=== PATIENT | female | born 1940 | race African-American/Black ===

== ENCOUNTER 2016-10-31 12:23 | Inpatient (IN) ==
[2016-10-31] MEDS ORDERED: ALBUTEROL/IPRATROPIUM 3 ML NEB RESP TX PRN (12:26)
[2016-10-31] MEDS ORDERED: AMINOPHYLLINE 250 MG in SODIUM CHLORIDE 0.9% 100 ML IV ONE (12:37)
[2016-10-31] MEDS ORDERED: traMADol 50 MG TABLET PO PRN (12:37)
[2016-10-31] MEDS ORDERED: ACETAMINOPHEN 325 MG TABLET PO PRN (12:46)
--- NOTE | 2016-10-31 12:50 | Pulmonology History & Physical ---
History of Present Illness Chief complaint: shortness of breath wheezing bronchitis with bronchospasm sarcoidosis History of present illness: Julia Triana, KHADRA-Mera acting as scribe for Dr. Phill Wallis. Ms. Grady is a 76 year old female who was seen in the office by myself and Dr. Phill Wallis for severe wheezing, shortness of breath, hypoxemia, productive cough, and status post fall with thoracic back pain. States that she has tenderness in one spot along the thoracic spine since her fall about 1 month ago that has persistent with tenderness. About 1 week ago her chronic shortness of breath worsened and has progressed now to severe shortness of breath and severe wheezing with cough productive of thick dark green sputum. She has a history of pulmonary sarcoidosis with interstitial scarring and severely enlarged lymph nodes. Also has history of reflux with dysphagia and upon further questioning in office the patient stated she "forgot " she had reflux. Has not been taking her reflux medication. Has some solid dysphagia, but mostly complains that beef is "hard to chew". Also she is followed by Dr. Diaz for chronic renal failure. O2 sat in the office was initially 79% on room air, she was given inhalation treatment with duoneb and sat came up to 84% on room air. Due to her past medical history, severity of her symptoms, severe hypoxemia, and recent fall with persistent pain decision was made to admit to inpatient for further evaluation and treatment. All other ROS noncontributory. ALLERGIES: AMOXICILLIN, ASPIRIN, PENICILLINS Home Medications: Accolate 20mg BID, Allopurinol 300mg daily, Dexamethasone 2mg every other day, Self Prescribed Garlic, Klor-Con 20mEq BID, Lisinopril 20mg daily, Metolazone 5mg 2 tabs in AM 1 in PM, Torsemide 100mg daily, self prescribed Vitamin E. Past Medical History: Dejenerative joint disease, hypertension, GERD, sarcoidosis, hyperlipidemia, chronic low back pain, spinal stenosis, herniated nucleus pulposus sustained April 2007 treated in [place] by Dr. Wolff and Dr. Starkey, gout, truncal obesity, history of microaspiration, lower extremity edema, history of asbestos exposure and possible pulmonary asbestosis as per Dr. Whitaker, see documentation 03/06/01. history of right lower extremity weakness secondary to spinal stenosis, chronic renal failure followed by Dr. Diaz. Past Surgical History: Back surgery April 2007, gallbladder surgery may 1999, tubal ligation 1995. Family History: Sister had diabetes. Social History: No alcohol or tobacco abuse. Went through 11th grade in school. and her has cancer. Chest X-Ray labs and EKG pending at the time of admission. Home Medications Medication Instructions Recorded Confirmed Type Allopurinol 100 mg PO DAILY 10/31/16 10/31/16 History Lisinopril 20 mg PO DAILY 10/31/16 10/31/16 History Magnesium Chloride [Slow Mag] 64 mg PO BID 10/31/16 10/31/16 History Potassium Chloride Cap/Tab [K Dur] 20 meq PO BID 10/31/16 10/31/16 History Zafirlukast 20 mg PO Q12HR 10/31/16 10/31/16 History traMADol/ACETAMINOPH 37.5-325 1 tablet PO BID PRN 10/31/16 10/31/16 History [Ultracet] Allergies Allergy/AdvReac Type Severity Reaction Status Date / Time Amoxicillin AdvReac Severe SHORTNESS Verified 10/31/16 14:01 OF BREATH aspirin AdvReac Severe SHORTNESS Verified 10/31/16 13:51 OF BREATH Results - Labs CBC & BMP: 11/01/16 04:11 11/01/16 04:11 Exam (Pulmonay) H&P - Constitutional Exam: Psych: Oriented x3. Acute and chronically ill appearing. HEENT: Pupils, irises, sclera, conjunctiva, and eyelids are normal. The face is symmetrical with no rashes and no masses. Salivary glands are normal. Nares are normal. Nasal turbinates are pale and moderately edematous with purulent drainage. Pharynx, soft and hard palate, tongue and buccal mucosa are normal. TMs normal. Neck: Symmetrical, no masses. Thyroid not examined. Lymphatic: No submandibular cervical supraclavicular adenopathy. Chest: Symmetrical. There is diffuse inspiratory and expiratory high pitched large airway and tracheal wheezing. There are faint/vague high pitched inspiratory and expiratory peripheral wheezes but there is very little air movement through the peripheral airways so it is difficult to hear any wheezing. Heart: Regular with a slightly lateral PMI, grade I/ systolic murmur at the left sternal border without radiation. No rub or gallop. Breasts: Deferred. Abdomen: Abdominal obesity is present with no appreciable organomegaly, masses, tenderness or bruits. The aorta cannot be palpated. Bowel sounds are normal. /Rectal: Deferred. Musculoskeletal: Mild loss of normal curvature of the cervical, thoracic and lumbar spine. Mild degenerative changes of the knees. Extremities: Trace lower extremity edema. No evidence of deep venous thrombophlebitis. Arterial exam: Carotid upstroke is brisk no bruits. Upper and lower extremity pulses are palpable. Venous exam: Venous exam of the neck, upper and lower extremities is normal. Neurological: Cranial nerves are intact. Long tract motor function is intact. She uses a walker normally but since her fall is using a wheelchair. Reflexes were not tested. Impression: #1 Acute bronchitis with bronchospasm #2 Severe shortness of breath and wheezing #3 Productive cough, r/o pneumonia #4 Pulmonary sarcoidosis #5 Status post fall with persistent thoracic spine pain #6 GERD #7 See past history Plan #1 Admit to inpatient for further evaluation and treatment #2 IV abx, SoluMedrol and aminophylline #3 Labs and CXR as ordered #4 T-Spine series r/o compression fx #5 Inhalation therapy with duonebs #6 Treat GERD with PPI and carafate as directed #7 See orders.
[2016-10-31] MEDS: ALBUTEROL/IPRATROPIUM 3 ML NEB RESP TX SCH ×2 (13:58→19:23)
--- NOTE | 2016-10-31 14:22 | EKG Report ---
Please refer to the EKG image. Final interpretation is pending.
[2016-10-31] MEDS: methylPREDNISolone SOD SUC 40 MG/1 ML VIAL IV SCH ×2 (15:20→20:16)
[2016-10-31] MEDS: CLINDAMYCIN INJ 300 MG in PREMIX 1 EACH IV SCH ×2 (15:24→20:17)
[2016-10-31] MEDS: PANTOPRAZOLE 40 MG TABLET PO SCH (15:25)
[2016-10-31 15:28] LABS: Basophils % 0.2 % (0.0-0.8); Immature Granulocytes % 0.4 %; Immature Granulocytes Absolute 0.02 #; Lymphocytes % 20.2 % (21.3-54.2); Mean Corpuscular HGB Conc 31.9 GM/DL (32-36); Mean Corpuscular Hemoglobin 31 PG (27-34); Mean Corpuscular Volume 98.3 FL (87-102); Mean Platelet Volume 11.1 FL (9.6-12.0); Monocytes # 0.6 10*3/uL (0.11-0.8); Monocytes % 11.7 % (1.7-12.7); NRBC # 0.02 10*3/uL; Neutrophils # 3.3 10*3/uL (1.4-7.4); Neutrophils % 67.5 % (38.7-73.9); Platelet Count 115 T/CUMM (130-400); Red Blood Count 4.78 MC/CUMM (3.8-5.5); Red Cell Distribution Width 14.7 % (9.3-17.3)
[2016-10-31 15:57] LABS: Albumin 3.3 G/DL (3.4-5.0); Bilirubin,Total 0.7 MG/DL (0.2-1.0); Calcium 8.8 MG/DL (8.5-10.1); Magnesium 1.8 MG/DL (1.8-2.4); Osmolality,Calculated 289.3 MOS/KG (273-304); Thyroid Stimulating Hormone 1.3 uIU/ml (0.358-3.74); Total Protein 6.7 G/DL (6.4-8.3)
[2016-10-31] MEDS: LEVOFLOXACIN INJ 250 MG in PREMIX 1 EACH IV SCH (16:15)
[2016-10-31] MEDS: SUCRALFATE 1 GM TABLET PO SCH ×2 (17:45→20:14)
[2016-10-31] MEDS: MONTELUKAST 10 MG TABLET PO SCH (20:14)
[2016-10-31] MEDS: AMINOPHYLLINE 500 MG in SODIUM CHLORIDE 0.9% 480 ML IV SCH (20:18)
--- NOTE | 2016-10-31 21:29 | XRay Report ---
Exam: XR chest 1V Indication: Shortness of breath Comparison study: Prior chest radiographs 03/22/2014 Findings: Cardiac silhouette is enlarged, similar to prior. There is prominent central perihilar interstitial scarring changes with soft tissue prominence likely representing underlying hilar adenopathy which appears similar to minimally progressed from the 2014 study. There has also been development of minimal basilar interstitial opacities which may represent scarring or interstitial infectious/inflammatory infiltrates. There is no pneumothorax. Impression: Cardiomegaly with perihilar and basilar interstitial opacities suggestive of underlying scarring. Additional soft tissue opacities within the hilar regions which may be partially calcified appear similar to slightly progressed from prior may be related to prior granulomatous disease or other chronic infectious/inflammatory process. PROCEDURE INTERPRETED AT [facility] DEPARTMENT OF RADIOLOGY Final Report Signed by: Dale Carrera
--- NOTE | 2016-10-31 21:36 | XRay Report ---
XR thoracic spine 2V ap/lat Clinical Information: tspinepain point tenderness r/o compression fx Comparison: None available Findings: Vertebral body heights and alignment are grossly within normal limits. Visualization of the lateral view is limited due to overlying soft tissues. There is suggestion of mild mid thoracic (possibly T6-T7?) Vertebral body height loss of 20%, although this is poorly visualized. Intervertebral disc spaces are generally maintained at all levels. No suspicious osseous or soft tissue lesions are identified. Impression: Limited visualization due to patient body habitus. No definite acute displaced fractures although there is suggestion of minimal, age indeterminant, height loss at the mid thoracic levels. See above comments. PROCEDURE INTERPRETED AT [facility] DEPARTMENT OF RADIOLOGY Final Report Signed by: Dale Carrera
[2016-11-01] MEDS: methylPREDNISolone SOD SUC 40 MG/1 ML VIAL IV SCH ×4 (03:25→20:50)
[2016-11-01] MEDS: CLINDAMYCIN INJ 300 MG in PREMIX 1 EACH IV SCH ×4 (03:25→20:50)
[2016-11-01 05:10] LABS: Amorphous Crystals,Urine Occasional /HPF (Few); Apearance,Urine CLOUDY (Clear); Bacteria,Urine Many /HPF (Few); Bilirubin,Urine Negative (Negative); Blood, Urine Negative (Negative); Glucose,Urine (UA) Negative (Negative); Ketones,Urine Negative (Negative); Mucus,Urine Occasional /LPF (Occasional); Nitrite,Urine Negative (Negative); Protein,Urine >=500 MG/DL; RBC,Urine 5 /HPF (0-4); Squamous Epithelial Cell,Urine Occasional /HPF (0-10); Urine Color Amber (Yellow); Urine Specific Gravity 1.018 (1.001-1.035); Urine Urobilinogen < 2.0 EU/DL (0.2-1.0); WBC,Urine 41 /HPF (0-6)
[2016-11-01 05:10] LABS: Hematocrit 47.4 VOL% (35.7-47.0); Hemoglobin 15.3 GM/DL (12.0-16.0); Immature Granulocytes Absolute 0.03 #; Lymphocytes # 0.8 10*3/uL (1.4-4.0); Lymphocytes % 28.2 % (21.3-54.2); Mean Corpuscular HGB Conc 32.3 GM/DL (32-36); Mean Corpuscular Hemoglobin 32 PG (27-34); Mean Corpuscular Volume 97.7 FL (87-102); Mean Platelet Volume 11.5 FL (9.6-12.0); Monocytes # 0.1 10*3/uL (0.11-0.8); Monocytes % 3.8 % (1.7-12.7); Platelet Count 127 T/CUMM (130-400); Red Blood Count 4.85 MC/CUMM (3.8-5.5); Red Cell Distribution Width 14.6 % (9.3-17.3); White Blood Count 2.9 T/CUMM (4-12)
[2016-11-01 05:36] LABS: Hypochromasia 1+
[2016-11-01 05:37] LABS: Platelet Estimate Normal
[2016-11-01 05:45] LABS: Calcium 8.7 MG/DL (8.5-10.1); Osmolality,Calculated 289.5 MOS/KG (273-304); Potassium 4.4 MMOL/L (3.5-5.1)
[2016-11-01] MEDS: ALBUTEROL/IPRATROPIUM 3 ML NEB RESP TX SCH ×4 (07:44→20:03)
[2016-11-01] MEDS: PANTOPRAZOLE 40 MG TABLET PO SCH (09:15)
[2016-11-01] MEDS: MONTELUKAST 10 MG TABLET PO SCH ×2 (09:16→20:49)
[2016-11-01] MEDS: amLODIPine 5 MG TABLET PO SCH (09:16)
[2016-11-01] MEDS: SUCRALFATE 1 GM TABLET PO SCH ×4 (09:16→20:49)
--- NOTE | 2016-11-01 10:38 | Pulmonology Progress Note ---
Pulmonary - PN: Subj Interval history: Hosea Ramirez, ANP-BC, GNP-BC, acting as scribe for Dr. Phill Wallis Mrs. Grady is a 76-year-old -[place] female who was admitted from internal medicine clinic on 10/31/2016 with acute shortness of breath, wheezing, acute bronchitis with bronchospasm, and sarcoidosis. Patient also had significant complaints of back pain. She had fallen 1 month ago. The patient was admitted and started on IV antibiotics, IV Solu-Medrol, and IV Aminophyllin. She is somewhat improved since admission, however, the patient continues to have significant wheeze. We will start scheduled subcu epinephrine 0.1 mg every 8 hours. We will obtain a theophylline level and follow this daily. Patient continues to complain of back pain. Thoracic spine x-ray done 2016 showed no definite acute displaced fractures although there is suggestion of minimal, age-indeterminate, height loss at the midthoracic levels. Visualization was somewhat impeded secondary to her body habitus. Will obtain a bone scan and consult pain management for further evaluation and care. Cold agglutinins are negative. Legionella is pending. Sputum for Gram stain, culture, and sensitivity were ordered at admission, however, the patient has not produced sputum for testing thus far. Medications have been reviewed. Labs been reviewed. White count is 2900 with normal differential; H&H 15.3/47.4 ; platelet count 127,000; creatinine 2.20, BUN 44, electrolytes are normal; urinalysis showed small leukocytes but was nitrite negative. There were many bacteria and 41 WBCs per high-power field. Culture is pending. Exam (Progress Note) - Constitutional Vitals: Period Temp Pulse Resp BP Sys/Nicolas Pulse Ox Last 24 Hr 96.8 F-97.7 F 55-93 18-26 91-149/57-90 78-99 Exam: Chest...see above Heart no gallop Abdomen is obese but nontender and nondistended, bowel sounds positive 4 Extremities with nothing to suggest acute deep venous thrombophlebitis, bilateral DIMITRIOS hose are in place Psychiatric oriented 3 Neurologic long tract motor function is intact Plan: Bone scan. Subcu epinephrine 0.1 mg every 8 hours. Consult pain management for possible compression fracture. Theophylline level today and daily. See orders. Results - Labs CBC & BMP: 11/01/16 04:11 11/01/16 04:11
[2016-11-01] MEDS: EPINEPHrine 1 MG/ML VIAL SUBCUT SCH ×2 (12:10→19:22)
--- NOTE | 2016-11-01 12:31 | Pain Management Consult Note ---
Assessment and Plan (1) Thoracic compression fracture Status: Acute Assessment and plan: will await the bone scan results and follow Current Visit: Yes History of Present Illness Chief complaint: mid back pain History of present illness: Ms. Grady is a 76 year old female sever emid back pain since a fall few weeks ago . chest xrays show possible compression fractures and bone scan will be done to check if they are acute Home Medications Medication Instructions Recorded Confirmed Type Allopurinol 100 mg PO DAILY 10/31/16 10/31/16 History Lisinopril 20 mg PO DAILY 10/31/16 10/31/16 History Magnesium Chloride [Slow Mag] 64 mg PO BID 10/31/16 10/31/16 History Potassium Chloride Cap/Tab [K Dur] 20 meq PO BID 10/31/16 10/31/16 History Zafirlukast 20 mg PO Q12HR 10/31/16 10/31/16 History traMADol/ACETAMINOPH 37.5-325 1 tablet PO BID PRN 10/31/16 10/31/16 History [Ultracet] Allergies Allergy/AdvReac Type Severity Reaction Status Date / Time Amoxicillin AdvReac Severe SHORTNESS Verified 10/31/16 14:01 OF BREATH aspirin AdvReac Severe SHORTNESS Verified 10/31/16 13:51 OF BREATH Medical,Surgical,& Family Hx - Medical History HEENT: History of: Eye Problem Respiratory: History of: Asthma, Respiratory Problems - Surgical History Cardiac Surgeries: Patient Denies: Cardiac Catheterization Thoracic Surgeries: Patient denies;: Organ Transplant Neurologic Surgeries: Patient denies: Neurologic Surgery Abdominal Surgeries: Patient denies: Abdominal Surgery Reproductive Surgeries: Patient denies;: Genitourinary Surgery, Gynecologic Surgery - Social History Smoking Status: Never smoker Frequency of Alcohol Use: None Type of Drug Use: None Quality Measures - Stroke Symptom Onset Unknown: No 12 point system: reviewed and no additional remarkable complaints except as stated - Constitutional Constitutional: Present: as per HPI - EENT Nose, mouth and throat: Present: as per HPI - Cardiovascular Cardiovascular: Absent: chest pain at rest, chest pain with activity - Respiratory Respiratory: Present: as per HPI - Gastrointestinal Gastrointestinal: Present: as per HPI - Genitourinary Genitourinary: Present: as per HPI - Musculoskeletal Musculoskeletal: Present: abnormal gait, back pain - Neurological Neurological: Present: abnormal gait - Endocrine Endocrine: Present: as per HPI Hematologic/Lymphatic: Present: as per HPI Exam - Constitutional Vitals: Period Temp Pulse Resp BP Sys/Nicolas Pulse Ox Last 24 Hr 96.8 F-97.7 F 55-93 18-26 91-149/57-90 78-99 General appearance: mild distress, no no acute distress - Head Head exam: Present: normal inspection - Eye Eye exam: Present: EOMI Pupils: Present: JOVITA - ENT ENT exam: Present: normal exam Ear exam: Present: intact Mouth exam: Present: normal external inspection - Neck Neck exam: Present: normal inspection - Respiratory Respiratory exam: Present: decreased breath sounds - Cardiovascular Cardiovascular exam: Present: RRR - GI/Abdominal GI/Abdominal exam: Present: normal bowel sounds - Extremities Exam Extremities exam: Present: normal inspection - Back Exam Back exam: Present: vertebral tenderness - Neurological Exam Neurological exam: Present: alert, oriented X3 - Skin Skin exam: Present: normal color Results - Labs CBC & BMP: 11/01/16 04:11 11/01/16 04:11 Lab Results: I have reviewed the past 24 hour labs
[2016-11-01] MEDS: LEVOFLOXACIN INJ 250 MG in PREMIX 1 EACH IV SCH (12:42)
--- NOTE | 2016-11-01 15:24 | Nuclear Medicine Report ---
Exam: NM bone scan whole body Date: 11/01/2016 10:06 AM Indication: Back pain Comparison: Chest radiograph and thoracic spine radiograph 10/31/2016. Previous MRI of lumbar spine 03/21/2014 revealed degenerative marrow signal changes at L3-L4 and L5 Technical: The patient was given 30 mCi of technetium 99m MDP. Anterior and posterior whole-body images were obtained. Findings: A cervicothoracic spine unremarkable. There is slight increased signal in the lumbar spine at approximately L1 or L2 not otherwise clarified. The ribs are unremarkable. There is mild degenerative changes at the AC joints and knees and mid foot region. Calvarium and long bones and ribs and pelvic girdle are intact. The kidneys and bladder are unremarkable. Impression: 1. Slight increased activity over the lumbar spine at approximately the L1 or L2 level. If further evaluation is warranted MRI may be beneficial. 2. Degenerative arthritic change of the shoulders and knees and feet 3. No obvious abnormality in the thoracic spine noted. PROCEDURE INTERPRETED AT [facility] DEPARTMENT OF RADIOLOGY Final Report Signed by: Dr. Phill Kim
[2016-11-02] MEDS: methylPREDNISolone SOD SUC 40 MG/1 ML VIAL IV SCH ×3 (04:49→20:50)
[2016-11-02] MEDS: CLINDAMYCIN INJ 300 MG in PREMIX 1 EACH IV SCH ×3 (04:49→20:48)
[2016-11-02] MEDS: EPINEPHrine 1 MG/ML VIAL SUBCUT SCH ×3 (04:50→20:51)
[2016-11-02 06:21] LABS: Hematocrit 46.2 VOL% (35.7-47.0); Hemoglobin 14.3 GM/DL (12.0-16.0); Immature Granulocytes % 0.7 %; Immature Granulocytes Absolute 0.03 #; Lymphocytes # 0.6 10*3/uL (1.4-4.0); Lymphocytes % 14.5 % (21.3-54.2); Mean Corpuscular Hemoglobin 31 PG (27-34); Monocytes # 0.3 10*3/uL (0.11-0.8); NRBC # 0.03 10*3/uL; Neutrophils # 3.2 10*3/uL (1.4-7.4); Neutrophils % 76.8 % (38.7-73.9); Platelet Count 136 T/CUMM (130-400); Red Blood Count 4.62 MC/CUMM (3.8-5.5); Red Cell Distribution Width 14.6 % (9.3-17.3); White Blood Count 4.1 T/CUMM (4-12)
--- NOTE | 2016-11-02 06:36 | Pain Management Progress Note ---
Assessment and Plan (1) Thoracic compression fracture Status: Acute Assessment and plan: will await the bone scan results and follow 11/02 I recommend to continue current plan of pain management which seems to be effective. I will discuss with Dr. Wallis about possibly obtaining MRI scans of the lumbar spine and thoracic spine if needed on Friday to see if these fractures are definitely acute Current Visit: Yes Pain - Subjective Interval history: The patient has been stable overnight has some trouble catching her breath however is not complaining of severe lower back pain. I had a chance of reviewing the bone scan results from yesterday which shows some increased activity at the L1 and L2 areas. That is suggestive of possible acute compression fractures however the radiologist recommended MRI scan if possible to be 100% certain of this. As I discussed the issue of the fractures the patient says that she is not ready for any surgery. I explained to her that if the MRI scans do show a need for kyphoplasty I will discuss it in detail with her and her family Exam - Constitutional Vitals: Period Temp Pulse Resp BP Sys/Nicolas Pulse Ox Last 24 Hr 97.0 F-97.6 F 71-88 18-21 92-125/51-80 91-99 General appearance: mild distress - Head Head exam: Present: normal inspection - Eye Eye exam: Present: EOMI Pupils: Present: JOVITA - ENT ENT exam: Present: normal exam Ear exam: Present: intact Mouth exam: Present: normal external inspection - Neck Neck exam: Present: normal inspection - Respiratory Respiratory exam: Present: decreased breath sounds - Cardiovascular Cardiovascular exam: Present: RRR - GI/Abdominal GI/Abdominal exam: Present: soft - Extremities Exam Extremities exam: Present: normal inspection, edema - Back Exam Back exam: Present: vertebral tenderness - Neurological Exam Neurological exam: Present: alert, oriented X3 - Skin Skin exam: Present: normal color Results - Labs CBC & BMP: 11/01/16 04:11 11/01/16 04:11 Lab Results: I have reviewed the past 24 hour labs Quality Measures - Stroke Symptom Onset Unknown: No
[2016-11-02 06:50] LABS: Calcium 8.3 MG/DL (8.5-10.1); Osmolality,Calculated 294.3 MOS/KG (273-304)
[2016-11-02 07:14] LABS: Band Neutrophils 1 % (0-10); Hypochromasia 1+; Lymphocytes 8 % (20-55); Macrocytosis 1+; Nucleated Red Blood Cells 1 (0-5); Platelet Estimate Adequate; Segmented Neutrophils 88 % (50-85); Total Cells Counted 100
[2016-11-02] MEDS: ALBUTEROL/IPRATROPIUM 3 ML NEB RESP TX SCH ×4 (07:45→19:25)
[2016-11-02] MEDS: amLODIPine 5 MG TABLET PO SCH (08:58)
[2016-11-02] MEDS: SUCRALFATE 1 GM TABLET PO SCH ×4 (08:59→20:51)
[2016-11-02] MEDS: PANTOPRAZOLE 40 MG TABLET PO SCH (08:59)
[2016-11-02] MEDS: MONTELUKAST 10 MG TABLET PO SCH ×2 (08:59→20:51)
[2016-11-02] MEDS: AMINOPHYLLINE 500 MG in SODIUM CHLORIDE 0.9% 480 ML IV SCH ×2 (09:03→16:46)
--- NOTE | 2016-11-02 10:56 | Pulmonology Progress Note ---
Pulmonary - PN: Subj Interval history: Mrs. Grady is a 76-year-old -[place] female who was admitted from internal medicine clinic on 10/31/2016 with acute shortness of breath, wheezing, acute bronchitis with bronchospasm, and sarcoidosis. Patient also had significant complaints of back pain. She had fallen 1 month ago. The patient was admitted and started on IV antibiotics, IV Solu-Medrol, and IV Aminophyllin. She is somewhat improved since admission, however, the patient continues to have significant wheeze. This is improving on a daily basis. On I started subcu epinephrine 0.1 mg every 8 hours. We will obtain a theophylline level and follow this daily. 11/02/2016 level is 10.3 Patient continues to complain of back pain. Thoracic spine x-ray done 2016 showed no definite acute displaced fractures although there is suggestion of minimal, age-indeterminate, height loss at the midthoracic levels. Visualization was somewhat impeded secondary to her body habitus. a bone scan was obtained. I do not think this showed anything definite. See report. On a consult to Dr. Carrizales for see the patient and pain medicine consultation. I have reviewed his note I appreciate his help. This lady is usually not a complainer. I am in favor of your suggestions concerning the MRI scan. She continues to improve from a pulmonary standpoint she will be ready for this by Friday. Cold agglutinins are negative. Legionella is pending. Sputum for Gram stain, culture, and sensitivity were ordered at admission, however, the patient has not produced sputum for testing thus far. Medications have been reviewed. Labs been reviewed. White count is 2900 with normal differential; H&H 15.3/47.4 ; platelet count 127,000; creatinine was 2.20, creatinine and now has dropped to 1.70. BUN 46, electrolytes are normal; urinalysis showed small leukocytes but was nitrite negative. There were many bacteria and 41 WBCs per high-power field. Culture is growing greater than 100,000 colonies of a gram-negative baltazar. ID and sensitivities are not yet available. Suspect the patient is covered on her present antibiotics. Physical exam. Vital signs. See below General. No significant distress. Comfortable lying nearly flat in bed. Still has back pain Psychiatric. Oriented 3 Neurologic. Cranial nerves are intact with some decreased hearing acuity bilaterally long track motor functions intact. Pupils irises sclera conjunctiva eyelids normal face is symmetrical. Lips and tongue normal. Neck. Symmetrical no meningismus Lymphatics. No submandibular cervical supraclavicular or epitrochlear adenopathy. Chest. Tracheal and large airway wheeze is a good bit improved. There is still associated congestion. There are a few high-pitched end expiratory wheezes heard at both bases and over both upper and anterior lung hernández. Heart. No gallop Abdomen. Nontender. Positive bowel sounds Musculoskeletal. See above Extremities. Nothing to suggest deep venous thrombophlebitis Skin of face and hand shows no infectious or cancerous lesions. No other areas of skin were examined. The remainder the physical exam is negative. Plan. 1. Continue present meds. Subcu epinephrine is helped a good bit. 2. Appreciate Dr. Carrizales consult. I am agreeable to MRI and think the patient will be ready by Friday Exam (Progress Note) - Constitutional Vitals: Period Temp Pulse Resp BP Sys/Nicolas Pulse Ox Last 24 Hr 96.8 F-97.6 F 71-88 18-21 92-125/51-80 92-99 Results - Labs CBC & BMP: 11/02/16 05:51 11/02/16 05:51
[2016-11-02] MEDS: LEVOFLOXACIN INJ 250 MG in PREMIX 1 EACH IV SCH (14:20)
[2016-11-02] MEDS: BENZONATATE 100 MG CAPSULE PO PRN (20:51)
[2016-11-03] MEDS: methylPREDNISolone SOD SUC 40 MG/1 ML VIAL IV SCH ×2 (04:47→20:36)
[2016-11-03] MEDS: EPINEPHrine 1 MG/ML VIAL SUBCUT SCH ×3 (04:48→20:36)
[2016-11-03] MEDS: CLINDAMYCIN INJ 300 MG in PREMIX 1 EACH IV SCH ×3 (04:54→21:02)
[2016-11-03 05:15] LABS: Hemoglobin 13.9 GM/DL (12.0-16.0); Immature Granulocytes % 0.8 %; Immature Granulocytes Absolute 0.05 #; Lymphocytes # 0.4 10*3/uL (1.4-4.0); Lymphocytes % 6.4 % (21.3-54.2); Mean Corpuscular HGB Conc 32.3 GM/DL (32-36); Mean Corpuscular Hemoglobin 31 PG (27-34); Mean Corpuscular Volume 96.8 FL (87-102); Mean Platelet Volume 10.5 FL (9.6-12.0); Monocytes # 0.4 10*3/uL (0.11-0.8); Monocytes % 7.2 % (1.7-12.7); NRBC # 0.03 10*3/uL; Neutrophils # 5.1 10*3/uL (1.4-7.4); Neutrophils % 85.6 % (38.7-73.9); Platelet Count 160 T/CUMM (130-400); Red Blood Count 4.44 MC/CUMM (3.8-5.5); Red Cell Distribution Width 14.4 % (9.3-17.3)
[2016-11-03 05:47] LABS: Calcium 8.3 MG/DL (8.5-10.1); Osmolality,Calculated 292.3 MOS/KG (273-304); Potassium 3.8 MMOL/L (3.5-5.1)
[2016-11-03 06:16] LABS: Hypochromasia Slight
[2016-11-03 06:17] LABS: Platelet Estimate Adequate
[2016-11-03] MEDS: ALBUTEROL/IPRATROPIUM 3 ML NEB RESP TX SCH ×4 (07:48→20:33)
[2016-11-03] MEDS: amLODIPine 5 MG TABLET PO SCH (08:49)
[2016-11-03] MEDS: PANTOPRAZOLE 40 MG TABLET PO SCH (08:49)
[2016-11-03] MEDS: MONTELUKAST 10 MG TABLET PO SCH ×2 (08:49→20:36)
[2016-11-03] MEDS: SUCRALFATE 1 GM TABLET PO SCH ×4 (08:49→20:36)
[2016-11-03] MEDS: BENZONATATE 100 MG CAPSULE PO PRN (08:49)
[2016-11-03] MEDS: LEVOFLOXACIN INJ 250 MG in PREMIX 1 EACH IV SCH (13:19)
--- NOTE | 2016-11-03 14:00 | Pulmonology Progress Note ---
Pulmonary - PN: Subj Interval history: Mrs. Grady is a 76-year-old -[place] female who was admitted from internal medicine clinic on 10/31/2016 with acute shortness of breath, wheezing, acute bronchitis with bronchospasm, and sarcoidosis. Patient also had significant complaints of back pain. She had fallen 1 month ago. The patient was admitted and started on IV antibiotics, IV Solu-Medrol, and IV Aminophyllin. She is somewhat improved since admission, however, the patient continues to have significant wheeze. This is improving on a daily basis. On I started subcu epinephrine 0.1 mg every 8 hours. We will obtain a theophylline level and follow this daily. 11/02/2016 level is 10.3 Patient continues to complain of back pain. Thoracic spine x-ray done 2016 showed no definite acute displaced fractures although there is suggestion of minimal, age-indeterminate, height loss at the midthoracic levels. Visualization was somewhat impeded secondary to her body habitus. a bone scan was obtained. I do not think this showed anything definite. See report. On a consult to Dr. Carrizales for see the patient and pain medicine consultation. I have reviewed his note I appreciate his help. This lady is usually not a complainer. I am in favor of your suggestions concerning the MRI scan. She continues to improve from a pulmonary standpoint she will be ready for this by Friday. Cold agglutinins are negative. Legionella is pending. Sputum for Gram stain, culture, and sensitivity were ordered at admission, however, the patient has not produced sputum for testing thus far. Medications have been reviewed. Labs been reviewed. White count is 2900 with normal differential; H&H 15.3/47.4 ; platelet count 127,000; creatinine was 2.20, creatinine and now has dropped to 1.70. BUN 46, electrolytes are normal; urinalysis showed small leukocytes but was nitrite negative. There were many bacteria and 41 WBCs per high-power field. Culture is growing greater than 100,000 colonies of a gram-negative baltazar. ID and sensitivities are not yet available. Suspect the patient is covered on her present antibiotics. 11/03/2016. Today the patient seems a little anxious and she says she has not been sleeping well at night. I have decreased her Solu-Medrol to 20 IV push every 12 hours. At 8:00 will give her 7.5 for transvenous see how this works. Her urine is growing E. coli. Based on the cultures and sensitivities and JUAN CARLOS is I have stopped her Levaquin and I started meropenem 500 every 8 hours. This is to begin with a test dose. Electrolytes normal. Creatinine is fallen from 2.402 1.30. Acute kidney injury. White blood cell count is 6000 with 86 segs and 6 lymphs. H&H 13.9/43.0. Platelets are 160,000. Theophylline level is therapeutic at 11.9. Physical exam. Vital signs. See below General. No significant distress. Comfortable lying nearly flat in bed. Still has back pain Psychiatric. Oriented 3 Neurologic. Cranial nerves are intact with some decreased hearing acuity bilaterally long track motor functions intact. Pupils irises sclera conjunctiva eyelids normal face is symmetrical. Lips and tongue normal. Neck. Symmetrical no meningismus Lymphatics. No submandibular cervical supraclavicular or epitrochlear adenopathy. Chest. Tracheal and large airway wheeze is a good bit improved. There is still associated congestion. There are a few high-pitched end expiratory wheezes heard at both bases and over both upper and anterior lung hernández. Heart. No gallop Abdomen. Nontender. Positive bowel sounds Musculoskeletal. See above Extremities. Nothing to suggest deep venous thrombophlebitis Skin of face and hand shows no infectious or cancerous lesions. No other areas of skin were examined. The remainder the physical exam is negative. Plan. 1. Continue present meds. Subcu epinephrine is helped a good bit. 2. Appreciate Dr. Carrizales consult. I am agreeable to MRI and think the patient will be ready by Friday 3. 11/03/2016. See my above note for this date. Exam (Progress Note) - Constitutional Vitals: Period Temp Pulse Resp BP Sys/Nicolas Pulse Ox Last 24 Hr 96.6 F-98.3 F 20-103 18-20 91-130/35-77 92-98 Results - Labs CBC & BMP: 11/03/16 04:26 11/03/16 04:26
[2016-11-03] MEDS: MEROPENEM 500 MG in SODIUM CHLORIDE 0.9% 100 ML IV SCH ×2 (15:20→23:00)
[2016-11-03] MEDS ORDERED: CLORAZEPATE 7.5 MG TABLET PO ONE (20:00)
[2016-11-04] MEDS: AMINOPHYLLINE 500 MG in SODIUM CHLORIDE 0.9% 480 ML IV SCH ×2 (01:16→18:04)
[2016-11-04] MEDS: EPINEPHrine 1 MG/ML VIAL SUBCUT SCH ×3 (05:00→21:36)
[2016-11-04] MEDS: CLINDAMYCIN INJ 300 MG in PREMIX 1 EACH IV SCH ×3 (05:05→21:27)
[2016-11-04] MEDS: MEROPENEM 500 MG in SODIUM CHLORIDE 0.9% 100 ML IV SCH ×3 (06:00→22:16)
--- NOTE | 2016-11-04 06:15 | Pain Management Progress Note ---
Assessment and Plan (1) Thoracic compression fracture Status: Acute Assessment and plan: will await the bone scan results and follow 11/02 I recommend to continue current plan of pain management which seems to be effective. I will discuss with Dr. Wallis about possibly obtaining MRI scans of the lumbar spine and thoracic spine if needed on Friday to see if these fractures are definitely acute 11/03 obtain mri of ls spine today Current Visit: Yes Pain - Subjective Interval history: The patient still has complaints of lower back pain. In favor of obtaining the MRI of the lumbar spine today to evaluate L1 and L2 fractures are acute Exam - Constitutional Vitals: Period Temp Pulse Resp BP Sys/Nicolas Pulse Ox Last 24 Hr 96.6 F-99.6 F 81-992 18-22 108-119/60-77 93-100 General appearance: no acute distress - Head Head exam: Present: normal inspection - Eye Eye exam: Present: EOMI Pupils: Present: JOVITA - ENT ENT exam: Present: normal exam Mouth exam: Present: normal external inspection - Neck Neck exam: Present: normal inspection - Respiratory Respiratory exam: Present: decreased breath sounds - Cardiovascular Cardiovascular exam: Present: RRR - GI/Abdominal GI/Abdominal exam: Present: normal bowel sounds - Extremities Exam Extremities exam: Present: normal inspection - Back Exam Back exam: Present: vertebral tenderness - Neurological Exam Neurological exam: Present: alert, oriented X3 - Skin Skin exam: Present: normal color Results - Labs CBC & BMP: 11/03/16 04:26 11/03/16 04:26 Lab Results: I have reviewed the past 24 hour labs Quality Measures - Stroke Symptom Onset Unknown: No
[2016-11-04] MEDS: ALBUTEROL/IPRATROPIUM 3 ML NEB RESP TX SCH ×4 (07:25→19:19)
[2016-11-04] MEDS: amLODIPine 5 MG TABLET PO SCH (09:34)
[2016-11-04] MEDS: methylPREDNISolone SOD SUC 40 MG/1 ML VIAL IV SCH ×2 (09:34→21:32)
[2016-11-04] MEDS: PANTOPRAZOLE 40 MG TABLET PO SCH (09:34)
[2016-11-04] MEDS: SUCRALFATE 1 GM TABLET PO SCH ×4 (09:34→21:36)
[2016-11-04] MEDS: MONTELUKAST 10 MG TABLET PO SCH ×2 (09:34→21:36)
--- NOTE | 2016-11-04 12:13 | Pulmonology Progress Note ---
Pulmonary - PN: Subj Interval history: Hosea Ramirez, ANP-BC, GNP-BC, acting as scribe for Dr. Phill Wallis Mrs. Grady was seen today along with Kerry Gonzáles RN. Mrs. Grady is a 76-year-old -[place] female who was admitted from Internal Medicine Clinic on 10/31/2016 with acute shortness of breath, wheezing, acute bronchitis with bronchospasm, and sarcoidosis. Patient also had significant complaints of back pain. She had fallen 1 month ago. The patient was admitted and started on IV antibiotics, IV Solu-Medrol, and IV Aminophyllin. She is somewhat improved since admission, however, the patient continues to have significant wheeze. We will start scheduled subcu epinephrine 0.1 mg every 8 hours. Theophylline level is 10.7 today. Patient continues to complain of back pain. Thoracic spine x-ray done 2016 showed no definite acute displaced fractures although there is suggestion of minimal, age-indeterminate, height loss at the midthoracic levels. Visualization was somewhat impeded secondary to her body habitus. Bone scan showed slight increased activity over the lumbar spine at approximately the L1 or L2 level. Dr. Carrizales is seeing her in pain management consultation. He had ordered and MRI for today, but the patient is refusing that at this time. We discussed the need for the test and the fact that no intervention may be available otherwise, but she still refused. We told her that if no intervention could be given she might have to just tolerate her pain and she said that was fine. We've asked her to discuss this with Dr. Carrizales. Cold agglutinins are negative. Legionella is pending. Sputum for Gram stain, culture, and sensitivity were ordered at admission. Gram stain showed few gram negative rods, few gram positive rods, and few gram positive cocci. Sputum culture has only grown yeast. Urine culture has grown E. coli. Her antibiotics were adjusted yesterday. Medications have been reviewed. We made no changes today. Labs been reviewed. Theophylline level is 10.7. Blood cultures are negative. Exam (Progress Note) - Constitutional Vitals: Period Temp Pulse Resp BP Sys/Nicolas Pulse Ox Last 24 Hr 97.6 F-99.6 F 84-992 18-22 108-138/62-81 93-100 Exam: Chest with overall congestion, but wheezes have improved. Expiratory wheezes remain. Heart no gallop Abdomen is obese but nontender and nondistended, bowel sounds positive 4 Extremities with nothing to suggest acute deep venous thrombophlebitis, bilateral DIMITRIOS hose are in place Psychiatric oriented 3 Neurologic long tract motor function is intact Plan: Continue present treatment. We will see if Dr. Carrizales has anything else to offer this patient since she is refusing an MRI. Results - Labs CBC & BMP: 11/03/16 04:26 11/03/16 04:26
[2016-11-05] MEDS: EPINEPHrine 1 MG/ML VIAL SUBCUT SCH ×2 (04:47→12:27)
[2016-11-05] MEDS: CLINDAMYCIN INJ 300 MG in PREMIX 1 EACH IV SCH ×2 (04:49→12:27)
[2016-11-05] MEDS: MEROPENEM 500 MG in SODIUM CHLORIDE 0.9% 100 ML IV SCH ×2 (05:18→15:17)
--- NOTE | 2016-11-05 06:37 | Pain Management Progress Note ---
Assessment and Plan (1) Thoracic compression fracture Status: Acute Assessment and plan: will await the bone scan results and follow 11/02 I recommend to continue current plan of pain management which seems to be effective. I will discuss with Dr. Wallis about possibly obtaining MRI scans of the lumbar spine and thoracic spine if needed on Friday to see if these fractures are definitely acute 11/03 obtain mri of ls spine today 11/05 will cancel mri and make follow up appointment after discharge Current Visit: Yes Pain - Subjective Interval history: she feels that low back pain is better and she does not want the mri done or any spine intervention this visit Exam - Constitutional Vitals: Period Temp Pulse Resp BP Sys/Nicolas Pulse Ox Last 24 Hr 97.6 F-98.9 F 80-107 17-22 124-150/79-85 93-99 General appearance: no acute distress - Head Head exam: Present: normal inspection - Eye Eye exam: Present: EOMI Pupils: Present: JOVITA - ENT ENT exam: Present: normal exam Ear exam: Present: intact Mouth exam: Present: normal external inspection - Neck Neck exam: Present: normal inspection - Respiratory Respiratory exam: Present: decreased breath sounds - Cardiovascular Cardiovascular exam: Present: RRR - GI/Abdominal GI/Abdominal exam: Present: normal bowel sounds - Extremities Exam Extremities exam: Present: normal inspection - Back Exam Back exam: Present: vertebral tenderness - Neurological Exam Neurological exam: Present: alert, oriented X3 Results - Labs CBC & BMP: 11/03/16 04:26 11/03/16 04:26 Lab Results: I have reviewed the past 24 hour labs Quality Measures - Stroke Symptom Onset Unknown: No
[2016-11-05] MEDS: ALBUTEROL/IPRATROPIUM 3 ML NEB RESP TX SCH ×2 (07:03→11:05)
[2016-11-05] MEDS: SUCRALFATE 1 GM TABLET PO SCH ×2 (09:13→12:27)
[2016-11-05] MEDS: amLODIPine 5 MG TABLET PO SCH (09:13)
[2016-11-05] MEDS: MONTELUKAST 10 MG TABLET PO SCH (09:13)
[2016-11-05] MEDS: PANTOPRAZOLE 40 MG TABLET PO SCH (09:13)
[2016-11-05] MEDS: methylPREDNISolone SOD SUC 40 MG/1 ML VIAL IV SCH (10:01)
--- NOTE | 2016-11-05 13:07 | Pulmonology Progress Note ---
Pulmonary - PN: Subj Interval history: Hosea Ramirez, ANP-BC, GNP-BC, acting as scribe for Dr. Phill Wallis Mrs. Grady was seen today along with José Luis Seth RN. The patient has had back pain for which she has refused and MRI. Dr. Carrizales will follow her up as an outpatient. She has had acute shortness of breath with wheezing, acute bronchitis with bronchospasm, and has sarcoidosis. She has very ill at admission. She has required IV Solumedrol, Aminophylline and antibiotics. She is quite insistent that she be discharged home today. We explained to her that we felt that would be a mistake and she would most likely find at home that she is unable to care for herself and would end up right back in the hospital. We asked her to stay for one more day, but she refused. Therefore, she will be discharged home today as per her wishes. Medications have been reviewed. Labs have been reviewed. Theophylline level today is 9.0. Exam (Progress Note) - Constitutional Vitals: Period Temp Pulse Resp BP Sys/Nicolas Pulse Ox Last 24 Hr 97.9 F-98.9 F 80-107 17-22 128-160/79-90 94-99 Exam: Chest with overall congestion, but wheezes have improved. Expiratory wheezes remain. Heart no gallop Abdomen is obese but nontender and nondistended, bowel sounds positive 4 Extremities with nothing to suggest acute deep venous thrombophlebitis, bilateral DIMITRIOS hose are in place Psychiatric oriented 3 Neurologic long tract motor function is intact Plan: She will be discharged home today as per her request. Please see the discharge note for more information. Results - Labs CBC & BMP: 11/03/16 04:26 11/03/16 04:26 Specialty Discharge - Follow Up or Referrals Follow up with: Dinora Carrizales MD [Physician] - 1 Week
--- NOTE | 2016-11-05 13:09 | Discharge Summary ---
Hospital Course - Hospital Course Hospital Course: Hosea Ramirez, ANP-BC, GNP-BC, acting as scribe for Dr. Phill Wallis Mrs. Grady is a 76-year-old -[place] female who was admitted from Internal Medicine Clinic on 10/31/2016 with acute shortness of breath, wheezing, acute bronchitis with bronchospasm, and sarcoidosis. The patient also had significant complaints of back pain. She had fallen 1 month ago. The patient was admitted and started on IV antibiotics, IV Solu-Medrol, and IV Aminophyllin. She has somewhat improved since admission, however, the patient continues to have expiratory wheeze. She is quite insistent that she be discharged home today. We explained to her that we felt that would be a mistake and she would most likely find at home that she is unable to care for herself and would end up right back in the hospital. We asked her to stay for one more day, but she refused. Therefore, she will be discharged home today as per her wishes. The patient continued to complain of back pain after admission. Thoracic spine x-ray done 10/31/2016 showed no definite acute displaced fractures although there is suggestion of minimal, age-indeterminate, height loss at the midthoracic levels. Visualization was somewhat impeded secondary to her body habitus. Bone scan showed slight increased activity over the lumbar spine at approximately the L1 or L2 level. Dr. Carrizales has seen her in pain management consultation. He had ordered and MRI for 11/04/16, but the patient refused to have it done. We discussed the need for the test and the fact that no intervention may be available otherwise, but she still refused. We told her that if no intervention could be given she might have to just tolerate her pain and she said that was fine. Dr. Carrizales will follow her up as an outpatient. Cold agglutinins are negative. Legionella is still pending at the time of discharge. Sputum for Gram stain, culture, and sensitivity were ordered at admission. Gram stain showed few gram negative rods, few gram positive rods, and few gram positive cocci. Sputum culture has only grown Renay albicans. Urine culture has grown E. coli. She has been treated with Merrem and Cleocin. This morning she developed diarrhea, but again, refuses to remain inpatient. At the time of discharge, white count is 6,000 with 85.6% segs, 6.4% lymphs, and 7.2% monos; H&H 13.9/43.0 with normal indices and normal RDW; PLT count 160, 000; creatinine 1.30 (was 2.20 at admission consistent with acute renal failure) , BUN 37, NA+ 141, K+ 3.8, Mg+ 1.8; LFTs WNL; TSH and Free T4 were normal at 1.300 and 1.22 respectively; theophylline level 9.0. For more information regarding Mrs. Grady' past medical history, surgical history, social history, family history, admit labs, admit xrays, and admit exam , please see the admission note dated 10/31/16. Impression: #1 Acute bronchitis with bronchospasm---resolved #2 Severe shortness of breath and wheezing---improved #3 Acute UTI secondary to E. coli #4 Pulmonary sarcoidosis #5 Status post fall with persistent thoracic spine pain; see above #6 GERD #7 See past history Plan: Theophylline 150mg PO BID, Prednisone 10mg PO daily x 14 days then 10mg PO QOD x 14 doses, Flagyl 250mg PO TID x 5 days, Accolate 20mg PO BID, SlowMag 64mg PO BID, Norvasc 5mg PO daily, Allopurinol 100mg PO daily, Ultracet 37.5/ 325mg PO BID PRN, KDur 20mEq PO daily, Mucinex 600mg pO BID, Protonix 40mg PO daily, Carafate 1 gram PO ACHS, and Tessalon 200mg PO TID PRN cough. She will be scheduled to follow-up with Julia Triana NP, in 2 weeks with CBC, BMP , theophylline level, and urinalysis. She could be seen sooner if needed. Specialty Discharge - Follow Up or Referrals Follow up with: Dinora Carrizales MD [Physician] - 1 Week Julia Triana CFNP [Advanced Practice Nurse] - 2 Weeks (NOT A FRIDAY; with CBC, BMP, theophylline level and urinalysis) Discharge Plan - Discharge Data Disposition: Disch To Home/Self Care Condition at Discharge: Stable - Discharge Medications New Sucralfate Tab [Carafate Tab] 1 gm PO ACHS #120 tablet amLODIPine [Norvasc] 5 mg PO DAILY #30 tablet metroNIDAZOLE TAB [Flagyl Cap/Tab] 250 mg PO TID #15 tablet predniSONE TAB [PredniSONE] 10 mg PO DIRECTED #28 tablet Benzonatate [Tessalon] 200 mg PO TID PRN #60 capsule PRN Reason: Cough Pantoprazole Tab [Protonix Tab] 40 mg PO DAILY #30 tablet Theophylline ER Cap (24 Hr) [Iban-24] 300 mg PO DAILY #30 capsule Continue Magnesium Chloride [Slow Mag] 64 mg PO BID Zafirlukast 20 mg PO Q12HR Allopurinol 100 mg PO DAILY Potassium Chloride Cap/Tab [K Dur] 20 meq PO BID traMADol/ACETAMINOPH 37.5-325 [Ultracet] 1 tablet PO BID PRN PRN Reason: Pain Discontinued Lisinopril 20 mg PO DAILY - Follow Up or Referral Follow Up: Dinora Carrizales MD [Physician] - 1 Week - Forms/Instructions Exam - Constitutional Vitals: Period Temp Pulse Resp BP Sys/Nicolas Pulse Ox Last 24 Hr 97.9 F-98.9 F 80-107 17-22 128-160/79-90 94-99 Discharge Results Procedures and tests throughout hospitalization: Pending Orders 10/31/16 15:08 Blood Culture Routine 10/31/16 15:09 Legionella Pneumophilia Ab Routine 11/06/16 04:00 Theophylline IN AM 11/07/16 04:00 Theophylline IN AM 11/08/16 04:00 Theophylline IN AM Labs on day of discharge: Labs from last 24 hours 11/05/16 09:39 Theophylline 9.0 L Preliminary micro results at discharge 10/31/16 15:08 Blood Culture - Preliminary Blood No growth at 3 days 10/31/16 15:08 Blood Culture - Preliminary Blood No growth at 3 days DS: Provider Date of admission: 10/31/16 12:26 Primary care physician: Phill Wallis MD Attending physician on admission: Phill Wallis MD Consults: 10/31/16 14:58 Consult to Pharmacy [CONS] Routine Reason for Pharmacy Consult: Adjust Meds Renal Funct 11/01/16 10:06 Consult to Physician [CONS] Routine Comment: back pain, hx of fall, bone scan ordered Consulting Provider: Dinora Carrizales Person Notified: aware 11/05/16 08:01 Consult to Case Mgmt/Social Srvs [CONS] Routine Reason for Case Mgmt/Social Srvs: Discharge Planning Consult Comment: possible swingbed/shelter Discharging clinician: JHONATAN Morrison
[2016-11-05 16:29] VITALS: BP 132/80
== END 2016-11-05 16:31 | disposition home health service (06) | DRG 202 ==
LOC: N.5E 12:41
PROVIDERS: ADMIT Internal Medicine Pulmonary Disease; ATTEND Internal Medicine Pulmonary Disease

== ENCOUNTER 2017-05-29 04:48 | Inpatient (IN) ==
[2017-05-29 05:25] LABS: Apearance,Urine CLEAR (Clear); Bacteria,Urine Few /HPF (Few); Bilirubin,Urine Negative (Negative); Blood, Urine Negative (Negative); Glucose,Urine (UA) Negative (Negative); Ketones,Urine Negative (Negative); Mucus,Urine Occasional /LPF (Occasional); Nitrite,Urine Negative (Negative); Protein,Urine Negative; RBC,Urine <1 /HPF (0-4); Urine Color Straw (Yellow); Urine Specific Gravity 1.005 (1.001-1.035); Urine Urobilinogen < 2.0 EU/DL (0.2-1.0); WBC,Urine <1 /HPF (0-6)
--- NOTE | 2017-05-29 06:09 | EKG Report ---
Stationary ECG Study [facility] ER Test Date: 05/29/2017 6:08:54 AM Pat Name: YOAN PINTO Department: Room: Gender: F Living Supervisor: : 1940 Requested by: Omer Nava Order Number: [id number] Reading MD: FANNIE POPE Intervals [place] Rate: 90 P: 60 [place]: 158 QRS: 181 QRSD: 158 T: 57 QT: 412 QTc: 460 Interpretive Statements SINUS RHYTHM RIGHT AXIS DEVIATION RIGHT BUNDLE BRANCH BLOCK Electronically Signed On 05-31-17 17:31:13 CDT by FANNIE POPE [email or web address]
[2017-05-29 06:40] LABS: Basophils % 0.4 % (0.0-0.8); Eosinophils # 0.1 10*3/uL (0.0-0.87); Eosinophils % 1.3 % (0.00-10.9); Hematocrit 40.7 VOL% (35.7-47.0); Hemoglobin 13.6 GM/DL (12.0-16.0); Immature Granulocytes % 0.7 %; Immature Granulocytes Absolute 0.05 #; Lymphocytes # 0.6 10*3/uL (1.4-4.0); Lymphocytes % 7.9 % (21.3-54.2); Mean Corpuscular HGB Conc 33.4 GM/DL (32-36); Mean Corpuscular Hemoglobin 32 PG (27-34); Mean Corpuscular Volume 96.2 FL (87-102); Mean Platelet Volume 10.2 FL (9.6-12.0); Monocytes # 0.5 10*3/uL (0.11-0.8); Monocytes % 6.9 % (1.7-12.7); Neutrophils # 6.2 10*3/uL (1.4-7.4); Neutrophils % 82.8 % (38.7-73.9); Platelet Count 154 T/CUMM (130-400); Red Blood Count 4.23 MC/CUMM (3.8-5.5); Red Cell Distribution Width 15.1 % (9.3-17.3); White Blood Count 7.5 T/CUMM (4-12)
--- NOTE | 2017-05-29 06:44 | XRay Report ---
XR chest 1V portable Indication: Falling injury Comparison: 31 October 2016 Findings: The heart and mediastinum are stable in size and configuration with bilateral hilar enlargement. The pulmonary vascularity is increased with bilateral increased interstitial lung density. No other lung infiltrates, effusions, pneumothorax or other abnormality is demonstrated. Impression: Findings suggest cardiac decompensation. PROCEDURE INTERPRETED AT [facility] DEPARTMENT OF RADIOLOGY Final Report Signed by: Dr. José Miguel Forde
--- NOTE | 2017-05-29 06:47 | XRay Report ---
XR hip 2V LT Indication: Pain after falling injury Comparison: None available Findings: There is comminuted intratrochanteric fracture with medial displacement of the lesser trochanter fragment. There is mild anterior displacement of the femoral shaft relative to the femoral neck. The alignment of the joints appears normal. Mild hip degenerative change is present. No soft tissue abnormality is seen. Impression: Femur fracture as described above. PROCEDURE INTERPRETED AT [facility] DEPARTMENT OF RADIOLOGY Final Report Signed by: Dr. José Miguel Forde
[2017-05-29 06:49] LABS: Calcium 9.4 MG/DL (8.5-10.1); Osmolality,Calculated 285.5 MOS/KG (273-304); Potassium 2.7 MMOL/L (3.5-5.1)
[2017-05-29] MEDS ORDERED: SODIUM CHLORIDE 0.9% 500 ML IV STA (07:08)
[2017-05-29] MEDS ORDERED: MORPHINE 2 MG/1 ML SYRINGE IV STA ×2 (07:53→07:55)
[2017-05-29] MEDS ORDERED: ONDANSETRON 4 MG/2 ML VIAL IV STA (07:53)
[2017-05-29] MEDS ORDERED: MORPHINE 2 MG/1 ML SYRINGE ONE ×2 (07:55→07:56)
[2017-05-29] MEDS ORDERED: ONDANSETRON 4 MG/2 ML VIAL ONE ×2 (07:55→15:00)
[2017-05-29] MEDS ORDERED: MORPHINE 2 MG/1 ML SYRINGE IV PRN (08:12)
[2017-05-29] MEDS ORDERED: traZODone 50 MG TABLET PO PRN (08:12)
[2017-05-29] MEDS ORDERED: ZALEPLON 5 MG CAPSULE PO PRN (08:12)
--- NOTE | 2017-05-29 08:13 | Orthopedic Consult Note ---
History of Present Illness Chief complaint: left hip fracture History of present illness: Ms. Grady is a 76 year old female see dictated reports Home Medications Medication Instructions Recorded Confirmed Type Allopurinol 100 mg PO DAILY 10/31/16 10/31/16 History Magnesium Chloride [Slow Mag] 64 mg PO BID 10/31/16 10/31/16 History Potassium Chloride Cap/Tab [K Dur] 20 meq PO BID 10/31/16 10/31/16 History Zafirlukast 20 mg PO Q12HR 10/31/16 10/31/16 History traMADol/ACETAMINOPH 37.5-325 1 tablet PO BID PRN 10/31/16 10/31/16 History [Ultracet] Benzonatate [Tessalon] 200 mg PO TID PRN #60 capsule 11/05/16 Rx Pantoprazole Tab [Protonix Tab] 40 mg PO DAILY #30 tablet 11/05/16 Rx Sucralfate Tab [Carafate Tab] 1 gm PO ACHS #120 tablet 11/05/16 Rx Theophylline ER Cap (24 Hr) 300 mg PO DAILY #30 capsule 11/05/16 Rx [Iban-24] amLODIPine [Norvasc] 5 mg PO DAILY #30 tablet 11/05/16 Rx metroNIDAZOLE TAB [Flagyl Cap/Tab] 250 mg PO TID #15 tablet 11/05/16 Rx predniSONE TAB [PredniSONE] 10 mg PO DIRECTED #28 tablet 11/05/16 Rx Allergies Allergy/AdvReac Type Severity Reaction Status Date / Time Amoxicillin AdvReac Severe SHORTNESS Verified 10/31/16 14:01 OF BREATH aspirin AdvReac Severe SHORTNESS Verified 10/31/16 13:51 OF BREATH Medical,Surgical,& Family Hx - Medical History Cardio: History of: Hypertension HEENT: History of: Eye Problem Respiratory: History of: Asthma, Respiratory Problems Other: History of: Miscellaneous Medical Problems (sarcodosis) - Surgical History Cardiac Surgeries: Patient Denies: Cardiac Catheterization Thoracic Surgeries: Patient denies;: Organ Transplant Neurologic Surgeries: Patient denies: Neurologic Surgery Abdominal Surgeries: Patient denies: Abdominal Surgery Reproductive Surgeries: Patient denies;: Genitourinary Surgery, Gynecologic Surgery - Social History Smoking Status: Never smoker Frequency of Alcohol Use: None Type of Drug Use: None Exam - Constitutional Vitals: Period Temp Pulse Resp BP Sys/Nicolas Pulse Ox Last 24 Hr 96.4 F-96.4 F 86-102 18-22 120-134/72-79 89-96 Results - Labs CBC & BMP: 05/29/17 05:03 05/29/17 05:03
[2017-05-29] MEDS ORDERED: BENZONATATE 100 MG CAPSULE PO PRN (08:14)
[2017-05-29] MEDS ORDERED: SODIUM CHLORIDE 0.9% 1,000 ML IV SCH (08:30)
[2017-05-29] MEDS ORDERED: predniSONE 10 MG TABLET PO SCH (08:30)
--- NOTE | 2017-05-29 08:44 | Emergency Department Note ---
IGordo Emily, am scribing for, and in the presence of, Omer Nava MD 06:43. IElijah Sunil, MD, personally performed the services described in this documentation, ascribed by Rachel Caro in my presence, and it is both accurate and complete [id number] . Arrival - Arrival Chief Complaint: Fall ED Nursing Triage Note: EMS reports that patient fell at approx 3:30 this morning. States that she tripped on some cords while trying to walk to the bathroom. Denies hitting her head. Denies LOC. Complains of left hip pain. No rotation, shortnening, or deformity noted to extremity. Patient awake and alert. Hx of HTN and sarcodosis. Recieved for 4mg morphine for pain. Mode of Arrival: Stretcher Limitations: No Limitations Source: Patient - History of Present Illness HPI Narrative: Pt is a 76 y/o female who came to ED by EMS for further evaluation of left hip pain. Pt was getting up this morning going to bathroom while she tripped and fell. Pt denies LOC or hitting head. Pt cannot move left leg and she has pain with left leg when moved. PMHx of HTN and sarcodosis. Recieved for 4mg morphine for pain via EMS. Onset (ago): hour(s) Consistency: constant Severity: moderate Quality: aching Date of Last Menstrual Period: menopause Allergies/Adverse Reactions: Allergies Allergy/AdvReac Type Severity Reaction Status Date / Time Amoxicillin AdvReac Severe SHORTNESS Verified 10/31/16 14:01 OF BREATH aspirin AdvReac Severe SHORTNESS Verified 10/31/16 13:51 OF BREATH Home Medications: Home Medications Medication Instructions Recorded Confirmed Type Allopurinol 100 mg PO DAILY 10/31/16 10/31/16 History Magnesium Chloride [Slow Mag] 64 mg PO BID 10/31/16 10/31/16 History Potassium Chloride Cap/Tab [K Dur] 20 meq PO BID 10/31/16 10/31/16 History Zafirlukast 20 mg PO Q12HR 10/31/16 10/31/16 History traMADol/ACETAMINOPH 37.5-325 1 tablet PO BID PRN 10/31/16 10/31/16 History [Ultracet] Benzonatate [Tessalon] 200 mg PO TID PRN #60 capsule 11/05/16 Rx Pantoprazole Tab [Protonix Tab] 40 mg PO DAILY #30 tablet 11/05/16 Rx Sucralfate Tab [Carafate Tab] 1 gm PO ACHS #120 tablet 11/05/16 Rx Theophylline ER Cap (24 Hr) 300 mg PO DAILY #30 capsule 11/05/16 Rx [Iban-24] amLODIPine [Norvasc] 5 mg PO DAILY #30 tablet 11/05/16 Rx metroNIDAZOLE TAB [Flagyl Cap/Tab] 250 mg PO TID #15 tablet 11/05/16 Rx predniSONE TAB [PredniSONE] 10 mg PO DIRECTED #28 tablet 11/05/16 Rx Review of System - Review of System 12 point system: reviewed and no additional remarkable complaints except as stated - Review of System Constitutional: Absent: chills, fever, weakness Respiratory: Absent: respiratory distress Cardiovascular: Absent: chest pain Gastrointestinal: Absent: abdominal pain, nausea, vomiting Musculoskeletal: Present: leg pain (left leg/hip pain). Absent: arm pain, neck pain Skin: Absent: rash Neurological: Absent: headache Medical,Surgical,& Family Hx - Medical History Cardio: History of: Hypertension HEENT: History of: Eye Problem Respiratory: History of: Asthma, Respiratory Problems Other: History of: Miscellaneous Medical Problems (sarcodosis) - Surgical History Cardiac Surgeries: Patient Denies: Cardiac Catheterization Thoracic Surgeries: Patient denies;: Organ Transplant Neurologic Surgeries: Patient denies: Neurologic Surgery Abdominal Surgeries: Patient denies: Abdominal Surgery Reproductive Surgeries: Patient denies;: Genitourinary Surgery, Gynecologic Surgery - Social History Smoking Status: Never smoker Frequency of Alcohol Use: None Type of Drug Use: None Marital Status: Lives With:: Spouse Functional capacity: independent ambulation Exam Vital Signs: Vital Signs Temperature 96.4 F L 05/29/17 04:49 Pulse Rate 86 05/29/17 07:45 Respiratory Rate 20 05/29/17 07:45 Blood Pressure 134/79 05/29/17 07:45 O2 Sat by Pulse Oximetry 95 05/29/17 07:45 - General General appearance: alert, in no apparent distress - Head Head exam: Present: atraumatic - Eye Eye exam: Present: PERRL, EOMI - ENT ENT exam: Present: mucous membranes moist. Absent: mucous membranes dry - Neck Neck exam: Present: full ROM - Chest Chest inspection: Present: symmetric chest wall rise - Respiratory Respiratory exam: Present: normal lung sounds bilaterally. Absent: respiratory distress - Cardiovascular Cardiovascular exam: Present: tachycardia, normal heart sounds - Extremities Exam Extremities exam: Present: tenderness (LLE is slightly shortened and externally rotated with extreme pain to movement and tender at the anterior aspect of the left hip). Absent: full ROM (limited ROM in LLE secondary to extreme pain) - Neurological Exam Neurological exam: Present: alert, oriented X3, CN II-XII intact - Psychiatric Psychiatric exam: Present: normal affect, normal mood - Skin Skin exam: Present: warm, dry Results - Labs CBC & BMP: 05/29/17 05:03 05/29/17 05:03 Lab Results: I have reviewed the patients labs Labs: Laboratory Tests 05/29/17 05:03 Urine Color Straw Urine Appearance Clear Urine pH 5.0 Ur Specific [place] 1.005 Urine Blood Negative Urine Nitrate Negative Urine Urobilinogen < 2.0 H Urine Leukocytes Negative Urine RBC <1 Urine WBC <1 Urine Bacteria Few Urine Mucus Occasional Laboratory Tests 05/29/17 05/29/17 05:03 05:03 Neut % (Auto) 82.8 H Lymph % (Auto) 7.9 L Lymph # (Auto) 0.6 L Sodium 139 Potassium 2.7 L Chloride 91 L Carbon Dioxide 41 H Anion Gap 9.7 BUN 32 H Creatinine 1.30 H GFR Calculation 58 BUN/Creatinine Ratio 24.00 H Glucose 126 H Calculated Osmolality 285.5 Calcium 9.4 - EKG EKG results: interpreted by ERMD (RBBB, possible septal myocardial infarction), sinus rhythm (90) - Impressions This patient has a fracture of left hip she has a intertrochanteric fracture of the proximal femur on the left I discussed with the orthopedic surgeon I have admitted this patient for further care - Diagnostic Findings Procedure: Chest x-ray: report reviewed by me (Findings suggest cardiac decompensation.), X-ray: report reviewed by me (LT hip: Femur fx ) Disposition Clinical Impression: Intertrochanteric fracture of left hip Case discussed with: patient Disposition: Still a Patient Condition: Stable
[2017-05-29] MEDS ORDERED: MAGNESIUM CHLORIDE 64 MG TABLET PO SCH (09:00)
[2017-05-29] MEDS ORDERED: POTASSIUM CHLORIDE 20 MEQ TABLET PO SCH (09:00)
[2017-05-29] MEDS: ZAFIRLUKAST 20 MG TABLET PO SCH ×2 (09:32→20:41)
[2017-05-29] MEDS: PANTOPRAZOLE 40 MG TABLET PO SCH (09:32)
[2017-05-29] MEDS: THEOPHYLLINE ER (24 HR) 300 MG CAPSULE PO SCH (09:32)
[2017-05-29] MEDS: DOCUSATE SODIUM 100 MG CAPSULE PO SCH ×2 (09:32→20:41)
[2017-05-29] MEDS: amLODIPine 5 MG TABLET PO SCH (09:32)
[2017-05-29] MEDS: ALLOPURINOL 100 MG TABLET PO SCH (09:33)
[2017-05-29] MEDS ORDERED: MAGNESIUM SULF RIDER 2 GM in PREMIX 1 EACH IV ONE (10:28)
--- NOTE | 2017-05-29 10:52 | Hospitalist History & Physical ---
Assessment and Plan (1) Hypokalemia Status: Acute Assessment and plan: Potassium was noted 2.7 at the time of ED presentation. We will start the potassium replacement protocol, correct the deficit, and recheck in a.m. Current Visit: Yes (2) Intertrochanteric fracture of left hip Status: Acute Assessment and plan: Orthopedic evaluation has been requested for evaluation for surgical intervention. 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 She is generally managed in the outpatient setting by Dr. Phill Wallis. We will resume all home medications as ordered and consult Dr. Myers to evaluate and assist during the clinical encounter. Current Visit: No History of Present Illness Chief complaint: Fall History of present illness: This is a chronically ill 76-year-old female that presented to the ED at [facility] this morning via EMS for the evaluation of a fall with left hip pain. Patient has a medical history significant for hypertension, asthma, gouty arthritis, and sarcoidosis. The patient reported no significant surgical history at the time of encounter. The patient reports that she tripped on some course while attempting to walk to the bathroom at around 330 this morning. She denied loss of consciousness or head trauma. She alerted her who subsequently called EMS for emergency assistance. The patient was subsequently transferred to [facility] for further evaluation. The patient was assessed at the time of ED presentation. Labs were obtained which were significant for potassium 2.7, chloride 91, carbon dioxide 41, BUN 32 , creatinine 1.30, glucose 126, and theophylline 50.1.Urinalysis was significant for urine urobilinogen greater than 2.0, urine RBCs less than 1, urine WBCs less than 1, urine bacteria few, urine mucus occasional. Chest x- ray was significant for the suggestion of cardiac decompensation. X-ray of the left hip significant for the presence of a comminuted intratrochanteric fracture with medial displacement of the lesser trochanter fragment. In addition, a mild anterior displacement of the femoral shaft relatively to the femoral neck was noted. After brief discussion with both Dr. Nava and Dr. Ramos, the patient was subsequently admitted to the hospitalist service for continuation of care. Due to the severity of the patient's pulmonary disease, Dr. Phill Wallis has been consulted to evaluate and assist during the clinical encounter. An orthopedic consultation has been requested for surgical intervention. Home medications have been reviewed and reconciled. Code status discussed; patient is a FULL CODE. Home Medications Medication Instructions Recorded Confirmed Type Allopurinol 100 mg PO DAILY 10/31/16 05/29/17 History Magnesium Chloride [Slow Mag] 64 mg PO BID 10/31/16 05/29/17 History Potassium Chloride Cap/Tab [K Dur] 20 meq PO TID 10/31/16 05/29/17 History Zafirlukast 20 mg PO Q12HR 10/31/16 05/29/17 History traMADol/ACETAMINOPH 37.5-325 2 tablet PO BID PRN 10/31/16 05/29/17 History [Ultracet] Theophylline ER Cap (24 Hr) 300 mg PO DAILY #30 capsule 11/05/16 05/29/17 Rx [Iban-24] Clorazepate [Tranxene] 3.75 mg PO BID 05/29/17 05/29/17 History Lisinopril/Hydrochlorothiazide 1 each PO DAILY 05/29/17 05/29/17 History [Lisinopril-Hctz 20-25 mg Tab] Allergies Allergy/AdvReac Type Severity Reaction Status Date / Time Amoxicillin AdvReac Severe SHORTNESS Verified 10/31/16 14:01 OF BREATH aspirin AdvReac Severe SHORTNESS Verified 10/31/16 13:51 OF BREATH Medical,Surgical,& Family Hx - Medical History Cardio: History of: Hypertension Psychological: History of: Depression (does not take any medication) HEENT: History of: Eye Problem Rheumatology: History of;: Rheumatoid Arthritis Respiratory: History of: Asthma, Respiratory Problems Musculoskeletal: No history of: Amputation Hematology: History of: Anemia (was on medication in 1976) Other: History of: Miscellaneous Medical Problems (sarcodosis) - Surgical History Cardiac Surgeries: Patient Denies: Cardiac Catheterization Thoracic Surgeries: Patient denies;: Organ Transplant, Lobectomy Neurologic Surgeries: Patient denies: Neurologic Surgery HEENT Surgeries: Patient denies: Tonsilectomy & Adenoidectomy Abdominal Surgeries: Patient denies: Abdominal Surgery Reproductive Surgeries: Surgical HX of;: Tubal Ligation Patient denies;: Genitourinary Surgery, Gynecologic Surgery Orthopedic Surgeries: Patient denies;: Implanted Devices, Orthopedic Surgery, Spinal Surgery, Total Hip Replacement, Total Knee Replacement - Family History Family History: Reports;: Family Cancer (paternal grandmother, paternal aunt), Family Diabetes (father), Family Hypertension (mother and father) - Social History Smoking Status: Never smoker Have you smoked in the last 12 months: No Frequency of Alcohol Use: None Type of Drug Use: None Marital Status: Lives With:: Spouse Functional capacity: independent ambulation 12 point system: reviewed and no additional remarkable complaints except as stated Exam - Constitutional Vitals: Period Temp Pulse Resp BP Sys/Nicolas Pulse Ox Last 24 Hr 96.4 F-96.9 F 86-102 18-22 120-134/59-79 89-96 General appearance: normal weight, no acute distress - Head Head exam: Present: normal inspection. Absent: normocephalic, atraumatic - Eye Eye exam: Present: EOMI. Absent: conjunctival injection Pupils: Present: JOVITA, normal accommodation - ENT ENT exam: Present: normal exam, normal external ear exam, normal oropharynx - Neck Neck exam: Present: normal inspection. Absent: lymphadenopathy, meningismus, tenderness, thyromegaly - Respiratory Respiratory exam: Present: wheezes. Absent: clear to auscultation bilaterally, rales, rhonchi, stridor - Cardiovascular Cardiovascular exam: Present: regular rate and rhythm. Absent: carotid bruit, diastolic murmur, gallop, JVD, rubs, systolic murmur - Extremities Exam Extremities exam: Present: normal capillary refill. Absent: normal inspection ( Left hip deformity and shortening noted), full ROM (Left hip deformity and shortening noted) - Back Exam Back exam: Present: normal inspection - Neurological Exam Neurological exam: Present: alert, oriented X3, CN II-XII intact - Psychiatric Psychiatric exam: Present: normal affect, normal mood - Skin Skin exam: Present: normal color, warm, dry Results - Labs CBC & BMP: 05/29/17 05:03 05/29/17 05:03 Lab Results: I have reviewed the past 24 hour labs
[2017-05-29] MEDS: SODIUM CHLOR 0.9% KCL 40 MEQ 40 MEQ/1,000 ML BAG IV SCH (10:53)
[2017-05-29] MEDS ORDERED: MAGNESIUM SULF RIDER 4 GM in PREMIX 1 EACH IV PRN (10:56)
[2017-05-29] MEDS: SUCRALFATE 1 GM TABLET PO SCH ×3 (10:56→20:41)
[2017-05-29] MEDS ORDERED: MAGNESIUM SULF RIDER 2 GM in PREMIX 1 EACH IV PRN (10:56)
[2017-05-29] MEDS ORDERED: CLINDAMYCIN INJ 900 MG in PREMIX 1 EACH IV ONE (11:00)
[2017-05-29] MEDS ORDERED: MAGNESIUM SULFATE 1 GM/2 ML VIAL IM ONE (11:00)
[2017-05-29] MEDS ORDERED: ALBUTEROL 2.5 MG/3 ML NEB RESP TX ONE (11:38)
[2017-05-29] MEDS: LACTATED RINGERS 1,000 ML IV SCH (11:52)
[2017-05-29] MEDS: POTASSIUM CHLORIDE RIDER 10 MEQ in PREMIX 1 EACH IV PRN ×4 (11:53→17:28)
[2017-05-29] MEDS ORDERED: CLINDAMYCIN INJ 50 ML IV ONE (13:33)
[2017-05-29] MEDS ORDERED: PROMETHAZINE 25 MG/1 ML VIAL IM PRN (13:49)
[2017-05-29] MEDS ORDERED: LACTULOSE 20 GM/30 ML UDCUP PO PRN (13:49)
[2017-05-29] MEDS ORDERED: BISACODYL 10 MG SUPP RECTAL PRN (13:49)
[2017-05-29] MEDS ORDERED: MAGNESIUM HYDROXIDE SUSP 30 ML UDCUP PO PRN (13:49)
[2017-05-29] MEDS ORDERED: ONDANSETRON 4 MG/2 ML VIAL IV PRN (13:49)
[2017-05-29] MEDS ORDERED: MIDAZOLAM 2 MG/2 ML VIAL ONE (15:00)
[2017-05-29] MEDS ORDERED: fentaNYL 100 MCG/2 ML VIAL ONE (15:00)
[2017-05-29] MEDS ORDERED: NEOSTIGMINE 10 MG/10 ML VIAL ONE (15:01)
[2017-05-29] MEDS ORDERED: PROPOFOL 200 MG/20 ML VIAL IV ONE (15:01)
[2017-05-29] MEDS ORDERED: SEVOFLURANE 1 UNIT/15 MINUTE INH ONE (15:13)
--- NOTE | 2017-05-29 15:16 | XRay Report ---
XR hip 2V LT Clinical Information: COMP LT HIP Comparison: Left hip radiographs 05/29/2017 at 0622 hours Findings: Intraoperative fluoroscopy demonstrates orthopedic hardware placement at the left femoral fracture. Fracture fragments are in improved alignment. There is no evidence of hardware loosening/failure. There is no evidence of hip dislocation. The images were evaluated at the time of the procedure by the attending surgeon. Total fluoroscopy time: 32.8 seconds. Impression: Intraoperative fluoroscopy as detailed above. PROCEDURE INTERPRETED AT [facility] DEPARTMENT OF RADIOLOGY Final Report Signed by: Dale Carrera
--- NOTE | 2017-05-29 19:14 | Pulmonology Consult Note ---
History of Present Illness Chief complaint: Left femur fracture. Sarcoidosis. History of present illness: Hosea Ramirez, [facility], acting as scribe for Dr. Phill Wallis Mrs. Grady is a 76-year-old -[place] female who we have been asked to see in pulmonary consultation for evaluation and treatment. The request for consultation was made by Dr. Ramos. Patient was in her usual state of health until yesterday she presented to [place]'s emergency room by EMS with complaints of left hip pain status post fall. Apparently the patient was getting up that morning to go to the bathroom and she tripped and fell. X-ray of the left hip done in the emergency room showed an acute comminuted intratrochanteric fracture with medial displacement of the lesser trochanteric fragment. There was also mild anterior displacement of the femoral shaft relative to the femoral neck. Given his acute fracture, she was admitted to the hospitalist service for evaluation and treatment. Orthopedics has been consulted and she was seen by Dr. Carrasquillo. Earlier today she underwent ORIF of the left hip as per Dr. Carrasquillo. She was seen tonight along with her . The patient states that overall she has been doing very well. She denies any increased shortness of breath or dyspnea on exertion. There is been no cardiac angina or palpitations. No dysphasia or reflux. No change in bowel or bladder habits. No TIA symptoms or syncope. No bleeding from any site. All other systems are reviewed and were negative. ALLERGIES: AMOXICILLIN, ASPIRIN, PENICILLINS Home Medications: Accolate 20mg BID, Allopurinol 300mg daily, Dexamethasone 2mg every other day, Self Prescribed Garlic, Klor-Con 20mEq BID, lisinopril HCT 20/ 25 1 daily, self prescribed Vitamin E, Ultracet 37.5/325 2 tablets twice daily as needed, theophylline ER 300 mg daily, Slow-Mag 64 mg twice daily, and Tranxene 3.75 mg twice daily Hospital medications: See list Past Medical History: Degenerative joint disease, hypertension, GERD, sarcoidosis, hyperlipidemia, chronic low back pain, spinal stenosis, herniated nucleus pulposus sustained April 2007 treated in [place] by Dr. Wolff and Dr. Starkey, gout, truncal obesity, history of microaspiration, lower extremity edema, history of asbestos exposure and possible pulmonary asbestosis as per Dr. Whitaker, see documentation at [facility] from 03/06/01. History of right lower extremity weakness secondary to spinal stenosis and chronic renal failure followed by Dr. Diaz. She was inpatient 03/30/2017 through 04/04/[address] Wallis. During that admission, she was treated for acute bronchitis with bronchospasm and acute urinary tract infection secondary to E. coli. She was also inpatient in March [address] Wallis. However, those records are not available to review at this time. Past Surgical History: Back surgery April 2007, gallbladder surgery May 1999, tubal ligation 1995. Family History: Sister had diabetes. Social History: No alcohol or tobacco abuse. Went through 11th grade in school. and her has cancer. Chest x-ray. Done 05/29/2017. My interpretation. Bilateral hilar enlargement secondary to known sarcoidosis. No acute infiltrates, pulmonary edema, pleural effusions, or other abnormalities. Laboratory: White count is 7500 with 82.8% segs, 7.9% lymphs, and 6.9% monos; H& H 13.6/40.7 with normal indices and normal red blood cell distribution with; platelet count 154,000; creatinine 1.30 (azotemia), BUN 32, sodium 139, potassium is low at 2.7 (hypokalemia), calcium 9.4; theophylline level 15.1; urinalysis shows no evidence of infection. Home Medications Medication Instructions Recorded Confirmed Type Allopurinol 100 mg PO DAILY 10/31/16 05/29/17 History Magnesium Chloride [Slow Mag] 64 mg PO BID 10/31/16 05/29/17 History Potassium Chloride Cap/Tab [K Dur] 20 meq PO TID 10/31/16 05/29/17 History Zafirlukast 20 mg PO Q12HR 10/31/16 05/29/17 History traMADol/ACETAMINOPH 37.5-325 2 tablet PO BID PRN 10/31/16 05/29/17 History [Ultracet] Theophylline ER Cap (24 Hr) 300 mg PO DAILY #30 capsule 11/05/16 05/29/17 Rx [Iban-24] Clorazepate [Tranxene] 3.75 mg PO BID 05/29/17 05/29/17 History Lisinopril/Hydrochlorothiazide 1 each PO DAILY 05/29/17 05/29/17 History [Lisinopril-Hctz 20-25 mg Tab] Allergies Allergy/AdvReac Type Severity Reaction Status Date / Time Amoxicillin AdvReac Severe SHORTNESS Verified 10/31/16 14:01 OF BREATH aspirin AdvReac Severe SHORTNESS Verified 10/31/16 13:51 OF BREATH Exam (Pulmonay) H&P - Constitutional Vitals: Period Temp Pulse Resp BP Sys/Nicolas Pulse Ox Last 24 Hr 96.4 F-97.6 F 82-107 14-22 104-141/48-85 89-99 Exam: Psych: Oriented x 3; a pleasant and cooperative patient HEENT: Pupils, irises, sclera, conjunctiva, and eyelids are normal. The face is symmetrical without rash or masses. Lips, tongue, buccal mucosa, soft and hard palates, and phayrnx are WNL Neck: Symmetrical. Thyroid was not palpated. Lymphatics: No submandibular, cervical, or supraclavicular adenopathy Chest: Symmetrical without wheeze, rhonchi or rales Breasts: Deferred CV: Regular with a slight lateral PMI, grade 1/6 systolic murmur at left sternal border that does not radiate; no rub or gallop Arterial: Carotids with a good upstroke. There is no bruit. Upper extremity pulses are palpable. Lower extremity pulses are palpable. Venous: Exam of the neck, upper, and lower extremities is normal Abd: Obese, but no appreciable organomegaly, masses, tenderness, or bruit; Bowel sounds are positive 4; The aorta was not palpated /Rectal: Deferred Extremities: No clubbing, cyanosis, edema, or obvious DVT; sequential compression devices use Skin: No cancerous or infectious lesions of the exposed, examined skin; the perineal area was not examined M/S: Age appropriate loss of the normal curvature of the cervical, thoracic, and lumbar spine Neurological: Cranial nerves are intact, Long tract motor function is intact; Sensory exam was not done; gait was not tested. The remainder of the exam was noncontributory. Impression: #1: Acute comminuted intertrochanteric fracture on the left with medial displacement of the lesser trochanter fragment. Now, status post ORIF by Dr. Carrasquillo earlier today. #2: Pulmonary sarcoidosis #3: Gastroesophageal reflux disease #4: Hypokalemia #5: Hypertension #6: Hyperlipidemia #7: Spinal stenosis #8: History of herniated nucleus pulposus stain April 2007 and treated in [place] by Dr. Wolff and Dr. Starkey #9: History of microaspiration #10: Chronic renal failure followed by Dr. Diaz #11: Chronic low back pain followed by Dr. Carrizales #12: See past history Plan: #1: Potassium is being replaced as per Dr. Ramos #2: Continue present pulmonary medications #3: Repeat labs and chest x-ray tomorrow #4: See orders We appreciate this consult and will follow along with you. Medical,Surgical,& Family Hx - Medical History Cardio: History of: Hypertension Psychological: History of: Depression (does not take any medication) Neurology: No history of: Seizures HEENT: History of: Eye Problem Rheumatology: History of;: Rheumatoid Arthritis Respiratory: History of: Asthma, Respiratory Problems Musculoskeletal: No history of: Amputation Hematology: History of: Anemia (was on medication in 1976) Other: History of: Miscellaneous Medical Problems (sarcodosis) - Surgical History Cardiac Surgeries: Patient Denies: Cardiac Catheterization Thoracic Surgeries: Patient denies;: Organ Transplant, Lobectomy Neurologic Surgeries: Patient denies: Neurologic Surgery HEENT Surgeries: Patient denies: Tonsilectomy & Adenoidectomy Abdominal Surgeries: Patient denies: Abdominal Surgery Reproductive Surgeries: Surgical HX of;: Tubal Ligation Patient denies;: Genitourinary Surgery, Gynecologic Surgery Orthopedic Surgeries: Patient denies;: Implanted Devices, Orthopedic Surgery, Spinal Surgery, Total Hip Replacement, Total Knee Replacement - Family History Family History: Reports;: Family Cancer (paternal grandmother, paternal aunt), Family Diabetes (father), Family Hypertension (mother and father) - Social History Smoking Status: Never smoker Frequency of Alcohol Use: None Type of Drug Use: None Results - Labs CBC & BMP: 05/29/17 05:03 05/29/17 05:03
[2017-05-29] MEDS: CLINDAMYCIN INJ 900 MG in PREMIX 1 EACH IV SCH (20:41)
--- NOTE | 2017-05-29 21:15 | Consultation ---
DATE OF CONSULT: 05/29/2017 A 76-year-old black female fell at home early this morning, sustaining injury about her left hip. Sharda rodriguez has numerous medical problems but get out about the house typically with a walker. Upon following, she was unable to bear weight and brought by ambulance to [facility] room where she was di agnosed with displaced and comminuted intertrochanteric fracture to the left hip. I was asked to tawanda urias regarding orthopedic injuries. PHYSICAL EXAMINATION GENERAL: Obese, black female. She complains only her left hip pain. There is some shortening and e xternal rotation to the left limb. She has no pain or crepitation with range of motion by either upp er extremity or by the right lower. She will flex and extend the foot and ankle. There is no pain o r deformity about the left ankle, tib-fib or knee. Radiographs confirming displaced comminuted intertrochanteric fracture of the left hip. IMPRESSION: INTERTROCHANTERIC FRACTURE LEFT HIP. PLAN: I discussed with the diagnosed treatment recommendation including need for operative stabiliza tion and recommended internal fixation with compression hip screw device. Plan on getting this done later today. She is going to be admitted to the medical service procedure, preoperative assistance a nd medical management. Thank you for the consultation.
--- NOTE | 2017-05-29 21:15 | Operative Note ---
DATE: 05/29/2017 PREOPERATIVE DIAGNOSIS: INTERTROCHANTERIC FRACTURE, LEFT HIP. POSTOPERATIVE DIAGNOSIS: SAME. OPERATIVE PROCEDURE: COMPRESSION HIP SCREW, LEFT. SURGEON: Darrick Carrasquillo Jr., MD ANESTHESIA: General. INDICATIONS: A 76-year-old black female fell earlier this morning, sustaining a displaced and commin uted fracture to her left hip. I discussed with her preoperatively the diagnoses and recommendations for internal fixation. OPERATIVE PROCEDURE: The patient was taken to the operating room and under general anesthetic, positi oned on the fracture table in supine position. The right leg was placed in the well-padded leg holde r and left in a traction boot. Gentle traction and internal rotation was applied and fluoroscopy con firmed alignment and reduction. The hip was then prepped and draped in the usual sterile manner. Sharda rodriguez received clindamycin preoperatively. A longitudinal incision was made over the lateral aspect of [facility] left hip. Sharp dissection was carried down through skin and subcutaneous tissue. The IT band was split and the vastus split and flexed anteriorly. The guide pin was placed in the center of the fem oral head on both the AP and lateral projections. A 130-degree 4-hole side plate and an 85 mm lag sc rew were used to secure the reduction. Hemostasis was verified. The wound irrigated and closed in [facility] using 0-Vicryl to the vastus as well as IT band layer, 2-0 Vicryl for the subcutaneous layers, and aldo for skin. Sterile dressings applied. She was moved to her bed, extubated and taken to [facility] Recovery Room in a stable condition.
[2017-05-30] MEDS: CLINDAMYCIN INJ 900 MG in PREMIX 1 EACH IV SCH ×2 (03:43→12:16)
[2017-05-30 06:54] LABS: Basophils % 0.1 % (0.0-0.8); Eosinophils % 0.3 % (0.00-10.9); Hematocrit 34.5 VOL% (35.7-47.0); Immature Granulocytes % 0.4 %; Immature Granulocytes Absolute 0.04 #; Lymphocytes # 0.7 10*3/uL (1.4-4.0); Lymphocytes % 7.4 % (21.3-54.2); Mean Corpuscular HGB Conc 32.2 GM/DL (32-36); Mean Corpuscular Hemoglobin 32 PG (27-34); Mean Corpuscular Volume 99.1 FL (87-102); Mean Platelet Volume 10.7 FL (9.6-12.0); Monocytes # 0.9 10*3/uL (0.11-0.8); Monocytes % 9.8 % (1.7-12.7); Neutrophils # 7.7 10*3/uL (1.4-7.4); Platelet Count 130 T/CUMM (130-400); Red Blood Count 3.48 MC/CUMM (3.8-5.5); Red Cell Distribution Width 15.1 % (9.3-17.3); White Blood Count 9.4 T/CUMM (4-12)
[2017-05-30] MEDS: SODIUM CHLOR 0.9% KCL 40 MEQ 40 MEQ/1,000 ML BAG IV SCH (06:55)
[2017-05-30 07:11] LABS: Hemoglobin 11.1 GM/DL (12.0-16.0)
[2017-05-30 07:24] LABS: Bilirubin,Total 0.9 MG/DL (0.2-1.0); Calcium 8.4 MG/DL (8.5-10.1); Magnesium 1.5 MG/DL (1.8-2.4); Osmolality,Calculated 278.8 MOS/KG (273-304); Potassium 4.1 MMOL/L (3.5-5.1)
--- NOTE | 2017-05-30 07:46 | XRay Report ---
XR chest 1V portable Indication: Falling injury Comparison: 29 May 2017 Findings: The heart and mediastinum are stable in size and configuration. The pulmonary vascularity is increased with bilateral increased interstitial lung density this is slightly improved from previous exam. No other lung infiltrates, effusions, pneumothorax or other abnormality is demonstrated. Impression: Findings suggest cardiac decompensation, slightly improved from previous. PROCEDURE INTERPRETED AT [facility] DEPARTMENT OF RADIOLOGY Final Report Signed by: Dr. José Miguel Forde
[2017-05-30] MEDS: PANTOPRAZOLE 40 MG TABLET PO SCH (08:35)
[2017-05-30] MEDS: SUCRALFATE 1 GM TABLET PO SCH ×4 (08:38→20:54)
[2017-05-30] MEDS: THEOPHYLLINE ER (24 HR) 300 MG CAPSULE PO SCH (08:41)
[2017-05-30] MEDS: amLODIPine 5 MG TABLET PO SCH (08:41)
--- NOTE | 2017-05-30 08:41 | Anesthesia Post-Op ---
Anesthesia Post OP - Post Ansesthetic Evaluation Patient seen in post op: Yes Resp: within normal limits CV: within normal limits Mental: within normal limits Temp: within normal limits Maxm-Vl-Gtuinopyn: within normal limits Nausea and Vomiting: within normal limits Pain: within normal limits
[2017-05-30] MEDS: ZAFIRLUKAST 20 MG TABLET PO SCH ×2 (08:42→20:54)
[2017-05-30] MEDS: DOCUSATE SODIUM 100 MG CAPSULE PO SCH ×2 (08:42→20:54)
[2017-05-30] MEDS: ALLOPURINOL 100 MG TABLET PO SCH (08:42)
[2017-05-30] MEDS: FONDAPARINUX 2.5 MG/0.5 ML SYRINGE SUBCUT SCH (08:44)
--- NOTE | 2017-05-30 09:12 | Physician Query Form ---
CLICK EDIT DOCUMENT TO SELECT QUERY ANSWER --> OK --> SIGN Altagracia Levy RN, CCDS Certified Clinical Liquid F[employer]ilizer Servicer W) [phone] (f) [phone] [email or web address] PROVIDERS: Make your selection(s) from the choices in EACH section by typing an "x" and enter comments in the comment section. Please use your independent medical judgment in providing your response. This request does not imply that any particular answer is desired or expected. CLINICAL INDICATORS: (Providers should not edit this section) The medical record indicates that the patient was admitted with a fractured hip , "Sarcoidosis of lung with sarcoidosis of lymph nodes", "on home oxygen" and the patient was admitted and placed on 2-3 liters per NC. Based on the above, could you clarify the appropriate diagnosis, if significant , that supports the above abnormalities and additional evaluation, monitoring, and/or treatment rendered: ( ) Patient was treated or monitored for chronic respiratory failure ( ) Patient was not treated or monitored for chronic respiratory failure ( ) Other, please specify: ( x) Clinically unable to determine COMMENTS: PLEASE ALSO DOCUMENT RESPONSE IN PROGRESS NOTES AND/OR DISCHARGE SUMMARY Use of terms such as suspected, likely, or probable (associated with a specific diagnosis that is being evaluated, monitored, or treated as if it exists) are acceptable and can be restated in the discharge summary if not ruled out. MTDD
--- NOTE | 2017-05-30 09:34 | Orthopedic Progress Note ---
Orthopedics - Subjective Interval history: Comfortable tolerating bed PT needs to get up today to chair. Can partial weight-bear discussed likely here through the weekend working on discharge planning Exam - Constitutional Vitals: Period Temp Pulse Resp BP Sys/Nicolas Pulse Ox Last 24 Hr 97.2 F-98.0 F 82-107 14-20 86-162/48-95 89-99 Results - Labs CBC & BMP: 05/30/17 05:48 05/30/17 05:48
--- NOTE | 2017-05-30 10:30 | Hospitalist Progress Note ---
Assessment and Plan (1) Intertrochanteric fracture of left hip Status: Acute Assessment and plan: s/p surgery. She had some pain around her surgery site. Plan Continue with pain meds and surgery's recommendations. 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 She complains of pain in her leg where she had the surgery. Exam - Constitutional Vitals: Period Temp Pulse Resp BP Sys/Nicolas Pulse Ox Last 24 Hr 97.2 F-98.0 F 82-107 14-20 86-162/48-95 89-99 General appearance: morbidly obese - Head Head exam: Present: normal inspection - Respiratory Respiratory exam: Present: rales, rhonchi - Cardiovascular Cardiovascular exam: Present: regular rate and rhythm - GI/Abdominal GI/Abdominal exam: Present: normal bowel sounds - Extremities Exam Extremities exam: Present: normal inspection - Neurological Exam Neurological exam: Present: alert, oriented X3 Results - Labs CBC & BMP: 05/30/17 05:48 05/30/17 05:48 Lab Results: I have reviewed the past 24 hour labs
--- NOTE | 2017-05-30 10:57 | Pulmonology Progress Note ---
Pulmonary - PN: Subj Interval history: Hosea Ramirez, CLINTSALUD-, acting as scribe for Dr. Phill Wallis Mrs. Grady is a 76-year-old -[place] female who is on initial pulmonary consultation on 05/29/2017. At that time, our impressions were: #1: Acute comminuted intertrochanteric fracture on the left with medial displacement of the lesser trochanter fragment. Now, status post ORIF by Dr. Carrasquillo earlier today. #2: Pulmonary sarcoidosis #3: Gastroesophageal reflux disease #4: Hypokalemia #5: Hypertension #6: Hyperlipidemia #7: Spinal stenosis #8: History of herniated nucleus pulposus stain April 2007 and treated in [place] by Dr. Wolff and Dr. Starkey #9: History of microaspiration #10: Chronic renal failure followed by Dr. Diaz #11: Chronic low back pain followed by Dr. Carrizales #12: See past history 05/30/2017. Patient was seen today along with her nurse. She has done well since surgery. Her breathing has remained stable. She denies any increased shortness of breath. Her medications have been restarted. Medications have been reviewed. We made no changes today. Labs been reviewed. White count is 9400 with 82.0% segs; H&H 11.1/34.5; platelet count 130,000; creatinine improved to 1.20, BUN 29, electrolytes were normal; magnesium is low at 1.5 (hypomagnesemia); liver function tests within normal limits; calcium is low at 8.4 reflected in a low albumin of 3.0, total protein 6.0 Exam (Progress Note) - Constitutional Vitals: Period Temp Pulse Resp BP Sys/Nicolas Pulse Ox Last 24 Hr 97.2 F-98.0 F 82-107 14-20 86-162/48-95 89-99 Exam: Chest is wheeze free Heart no gallop Abdomen is obese, but nontender and nondistended; bowel sounds are positive 4 Extremities postsurgical as per Dr. Carrasquillo; nothing to suggest acute deep venous femoral phlebitis Psychiatric oriented 3 Neurologic long-term motor function is intact Plan: Magnesium replacement protocol has already been started. Continue present pulmonary medications. Repeat CBC and BMP/magnesium tomorrow. See orders. Results - Labs CBC & BMP: 05/30/17 05:48 05/30/17 05:48
[2017-05-30] MEDS: LISINOPRIL/HCTZ 20-25 MG TABLET PO SCH (12:14)
[2017-05-30] MEDS: MORPHINE 2 MG/1 ML SYRINGE IV PRN (13:30)
[2017-05-30] MEDS: LACTATED RINGERS 1,000 ML IV SCH (16:13)
[2017-05-31 06:00] LABS: Basophils % 0.5 % (0.0-0.8); Eosinophils # 0.4 10*3/uL (0.0-0.87); Eosinophils % 4.2 % (0.00-10.9); Hematocrit 32.2 VOL% (35.7-47.0); Hemoglobin 10.1 GM/DL (12.0-16.0); Immature Granulocytes % 0.6 %; Immature Granulocytes Absolute 0.05 #; Lymphocytes # 0.9 10*3/uL (1.4-4.0); Mean Corpuscular HGB Conc 31.4 GM/DL (32-36); Mean Corpuscular Hemoglobin 31 PG (27-34); Mean Corpuscular Volume 99.7 FL (87-102); Mean Platelet Volume 10.8 FL (9.6-12.0); Monocytes % 11.9 % (1.7-12.7); Neutrophils % 71.8 % (38.7-73.9); Platelet Count 129 T/CUMM (130-400); Red Blood Count 3.23 MC/CUMM (3.8-5.5); Red Cell Distribution Width 15.2 % (9.3-17.3); White Blood Count 8.3 T/CUMM (4-12)
[2017-05-31 06:51] LABS: Calcium 8.4 MG/DL (8.5-10.1); Magnesium 1.7 MG/DL (1.8-2.4); Potassium 4.1 MMOL/L (3.5-5.1)
[2017-05-31] MEDS: ALLOPURINOL 100 MG TABLET PO SCH (08:40)
[2017-05-31] MEDS: THEOPHYLLINE ER (24 HR) 300 MG CAPSULE PO SCH (08:40)
[2017-05-31] MEDS: SUCRALFATE 1 GM TABLET PO SCH ×4 (08:40→20:55)
[2017-05-31] MEDS: LISINOPRIL/HCTZ 20-25 MG TABLET PO SCH (08:40)
[2017-05-31] MEDS: PANTOPRAZOLE 40 MG TABLET PO SCH (08:40)
[2017-05-31] MEDS: ZAFIRLUKAST 20 MG TABLET PO SCH ×2 (08:40→20:54)
[2017-05-31] MEDS: FONDAPARINUX 2.5 MG/0.5 ML SYRINGE SUBCUT SCH (08:41)
[2017-05-31] MEDS: DOCUSATE SODIUM 100 MG CAPSULE PO SCH ×2 (08:41→20:54)
[2017-05-31] MEDS: amLODIPine 5 MG TABLET PO SCH (08:41)
--- NOTE | 2017-05-31 08:54 | Orthopedic Progress Note ---
Assessment and Plan (1) Intertrochanteric fracture of left hip Status: Acute Assessment and plan: Continue to advance with therapy. Continued care with PT, pain control, DVT prophylaxis Current Visit: Yes Orthopedics - Subjective Interval history: Patient seen and examined in her room. Sitting in a chair. No complaints Exam - Constitutional Vitals: Period Temp Pulse Resp BP Sys/Nicolas Pulse Ox Last 24 Hr 5 F-98.9 F 79-99 16-18 73-120/45-62 94-98 - Extremities Exam Extremities exam: Present: normal inspection (Right lower extremity: Dressing clean, dry, intact. Compartments soft. Full active range of motion foot and ankle. Capillary refill brisk. Sensation is intact) Results - Labs CBC & BMP: 05/31/17 04:11 05/31/17 04:11 Lab Results: I have reviewed the past 24 hour labs - Diagnostic Findings Procedure: X-ray: image reviewed by me, report reviewed by me
--- NOTE | 2017-05-31 10:11 | Hospitalist Progress Note ---
Assessment and Plan (1) Intertrochanteric fracture of left hip Status: Acute Assessment and plan: s/p surgery. Plan Continue with pain meds and surgery's recommendations. 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 Current Visit: Yes Hospitalist: Subjective Interval history: Patient seen sitting up on the chair. She couldn't really walk during physiotherapy.Her legs were swollen. Exam - Constitutional Vitals: Period Temp Pulse Resp BP Sys/Nicolas Pulse Ox Last 24 Hr 5 F-98.9 F 79-99 16-18 73-120/45-62 94-98 General appearance: no acute distress, over weight - Respiratory Respiratory exam: Present: clear to auscultation bilaterally - Cardiovascular Cardiovascular exam: Present: regular rate and rhythm - GI/Abdominal GI/Abdominal exam: Present: normal bowel sounds - Extremities Exam Extremities exam: Present: edema - Neurological Exam Neurological exam: Present: alert, oriented X3 Results - Labs CBC & BMP: 05/31/17 04:11 05/31/17 04:11 Lab Results: I have reviewed the past 24 hour labs
--- NOTE | 2017-05-31 12:19 | Pulmonology Progress Note ---
Pulmonary - PN: Subj Interval history: Patient is a 76-year-old black lady that fell and broke her left hip. She had her left hip pinned and did fairly well with the surgery. She has a long history of having sarcoidosis and hypertension. She says she is feeling okay today. She is not having any trouble with shortness of breath. She feels like her chest is doing okay. She is doing some physical therapy. She still has a good bit of pain in her left leg Exam (Progress Note) - Constitutional Vitals: Period Temp Pulse Resp BP Sys/Nicolas Pulse Ox Last 24 Hr 5 F-98.9 F 79-99 16-18 73-106/44-60 90-97 General appearance: no acute distress, over weight, other (She looks comfortable lying in bed.) - Head Head exam: Present: normal inspection, normocephalic - Eye Eye exam: Present: EOMI. Absent: scleral icterus Pupils: Present: JOVITA - ENT ENT exam: Present: normal exam - Neck Neck exam: Absent: lymphadenopathy, thyromegaly - Respiratory Respiratory exam: Present: clear to auscultation bilaterally. Absent: wheezes - Cardiovascular Cardiovascular exam: Present: regular rate and rhythm. Absent: gallop, systolic murmur - GI/Abdominal GI/Abdominal exam: Present: normal bowel sounds, soft. Absent: organomegaly, tenderness - Extremities Exam Extremities exam: Present: other (The left leg is bandaged.). Absent: calf tenderness, edema - Neurological Exam Neurological exam: Present: alert, oriented X3, CN II-XII intact - Psychiatric Psychiatric exam: Present: normal affect - Skin Skin exam: Present: warm, dry Results - Labs CBC & BMP: 05/31/17 04:11 05/31/17 04:11 Assessment and Plan (1) Intertrochanteric fracture of left hip Status: Acute Assessment and plan: The patient has a fracture of her left hip and had this pinned. She is doing fairly well postop and will continue with physical therapy. Current Visit: Yes (2) HTN (hypertension) Status: Acute Assessment and plan: Her blood pressure has been on the low side but she is doing okay. Current Visit: Yes (3) GERD (gastroesophageal reflux disease) Status: Acute Assessment and plan: She will continue with antireflux measures. 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 She is not having any respiratory distress now. Current Visit: No
[2017-05-31] MEDS: FUROSEMIDE 20 MG/2 ML VIAL IV SCH (15:13)
[2017-06-01 04:37] LABS: Basophils % 0.3 % (0.0-0.8); Eosinophils # 0.4 10*3/uL (0.0-0.87); Eosinophils % 4.9 % (0.00-10.9); Hemoglobin 9.8 GM/DL (12.0-16.0); Immature Granulocytes % 0.4 %; Immature Granulocytes Absolute 0.04 #; Lymphocytes # 1.2 10*3/uL (1.4-4.0); Lymphocytes % 13.1 % (21.3-54.2); Mean Corpuscular HGB Conc 32.7 GM/DL (32-36); Mean Corpuscular Hemoglobin 33 PG (27-34); Mean Corpuscular Volume 99.3 FL (87-102); Mean Platelet Volume 10.7 FL (9.6-12.0); Monocytes # 1.1 10*3/uL (0.11-0.8); Monocytes % 11.7 % (1.7-12.7); Neutrophils # 6.2 10*3/uL (1.4-7.4); Neutrophils % 69.6 % (38.7-73.9); Platelet Count 139 T/CUMM (130-400); Red Blood Count 3.02 MC/CUMM (3.8-5.5)
[2017-06-01 05:01] LABS: Calcium 8.2 MG/DL (8.5-10.1); Osmolality,Calculated 270.7 MOS/KG (273-304)
[2017-06-01] MEDS: ZAFIRLUKAST 20 MG TABLET PO SCH ×2 (08:24→20:10)
[2017-06-01] MEDS: ALLOPURINOL 100 MG TABLET PO SCH (08:24)
[2017-06-01] MEDS: THEOPHYLLINE ER (24 HR) 300 MG CAPSULE PO SCH (08:24)
[2017-06-01] MEDS: SUCRALFATE 1 GM TABLET PO SCH ×4 (08:25→20:09)
[2017-06-01] MEDS: FONDAPARINUX 2.5 MG/0.5 ML SYRINGE SUBCUT SCH (08:25)
[2017-06-01] MEDS: DOCUSATE SODIUM 100 MG CAPSULE PO SCH ×2 (08:25→20:09)
[2017-06-01] MEDS: PANTOPRAZOLE 40 MG TABLET PO SCH (08:25)
[2017-06-01] MEDS: FUROSEMIDE 20 MG/2 ML VIAL IV SCH (08:25)
--- NOTE | 2017-06-01 10:34 | Hospitalist Progress Note ---
Assessment and Plan (1) Intertrochanteric fracture of left hip Status: Acute Assessment and plan: s/p surgery. Plan Continue with pain meds and surgery's recommendations. 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 Exam - Constitutional Vitals: Period Temp Pulse Resp BP Sys/Nicolas Pulse Ox Last 24 Hr 97.6 F-98.6 F 80-94 16-18 74-87/34-62 87-98 General appearance: no acute distress, morbidly obese - Head Head exam: Present: normal inspection - Neck Neck exam: Present: normal inspection - Respiratory Respiratory exam: Present: clear to auscultation bilaterally - Cardiovascular Cardiovascular exam: Present: regular rate and rhythm - GI/Abdominal GI/Abdominal exam: Present: normal bowel sounds - Extremities Exam Extremities exam: Present: edema Results - Labs CBC & BMP: 06/01/17 03:51 06/01/17 03:51 Lab Results: I have reviewed the past 24 hour labs
--- NOTE | 2017-06-01 10:53 | Pulmonology Progress Note ---
Pulmonary - PN: Subj Interval history: Patient is a 76-year-old black lady that fell and broke her left hip. She had her left hip pinned and did fairly well with the surgery. She has a long history of having sarcoidosis and hypertension. She says she is feeling better today and her leg is a little better. She is sitting up in a chair and looks comfortable. She has not had a bowel movement yet. Her renal function is a little worse also. She says she is trying to eat and drink a little better. She is not having any breathing problems. Exam (Progress Note) - Constitutional Vitals: Period Temp Pulse Resp BP Sys/Nicolas Pulse Ox Last 24 Hr 97.6 F-98.6 F 80-94 16-18 74-87/34-62 87-98 Exam: General appearance: no acute distress, over weight, other (She looks comfortable sitting up in a chair. ) - Head Head exam: Present: normal inspection, normocephalic - Eye Eye exam: Present: EOMI. Absent: scleral icterus Pupils: Present: JOVITA - ENT ENT exam: Present: normal exam - Neck Neck exam: Absent: lymphadenopathy, thyromegaly - Respiratory Respiratory exam: Present: She has good breath sounds bilaterally and there are just a little coarse but no wheezing. - Cardiovascular Cardiovascular exam: Present: regular rate and rhythm. Absent: gallop, systolic murmur - GI/Abdominal GI/Abdominal exam: Present: normal bowel sounds, soft. Absent: organomegaly, tenderness - Extremities Exam Extremities exam: Present: other (The left leg is bandaged.). Absent: calf tenderness, edema - Neurological Exam Neurological exam: Present: alert, oriented X3, CN II-XII intact, she is moving everything okay. - Psychiatric Psychiatric exam: Present: normal affect - Skin Skin exam: Present: warm, dry Results - Labs CBC & BMP: 06/01/17 03:51 06/01/17 03:51 Assessment and Plan (1) Intertrochanteric fracture of left hip Status: Acute Assessment and plan: The patient has a fracture of her left hip and had this pinned. She is doing fairly well postop and will continue with physical therapy. She is sitting up and looks more comfortable. Current Visit: Yes (2) HTN (hypertension) Status: Acute Assessment and plan: Her blood pressure has been on the low side and her renal function is a little worse. Will adjust her medicines. Current Visit: Yes (3) GERD (gastroesophageal reflux disease) Status: Acute Assessment and plan: She will continue with antireflux measures. 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 She is not having any respiratory distress now. She continues to do fairly well with her breathing. Current Visit: No
--- NOTE | 2017-06-01 13:30 | Orthopedic Progress Note ---
Assessment and Plan (1) Intertrochanteric fracture of left hip Status: Acute Assessment and plan: Continue to advance with therapy. Continued care with PT, pain control, DVT prophylaxis. recommend d/c the flynn as soon as possible to decrease risk of infection. Spoke with the patient and RN about this. medicine renewed the flynn due to lasix managment. Current Visit: Yes Orthopedics - Subjective Interval history: pt s/e, no complaints. Exam - Constitutional Vitals: Period Temp Pulse Resp BP Sys/Nicolas Pulse Ox Last 24 Hr 97.5 F-98.6 F 80-94 16-18 74-83/34-62 87-98 - Extremities Exam Extremities exam: Present: normal inspection (LLE: dressing c/d/i, comp soft, sensation intact. ) Results - Labs CBC & BMP: 06/01/17 03:51 06/01/17 03:51 Lab Results: I have reviewed the past 24 hour labs
[2017-06-02 06:45] LABS: Calcium 8.3 MG/DL (8.5-10.1); Magnesium 1.7 MG/DL (1.8-2.4); Osmolality,Calculated 274.5 MOS/KG (273-304); Potassium 3.9 MMOL/L (3.5-5.1)
[2017-06-02] MEDS: SUCRALFATE 1 GM TABLET PO SCH ×4 (08:19→21:40)
[2017-06-02] MEDS: DOCUSATE SODIUM 100 MG CAPSULE PO SCH ×2 (08:19→21:40)
[2017-06-02] MEDS: FONDAPARINUX 2.5 MG/0.5 ML SYRINGE SUBCUT SCH (08:20)
[2017-06-02] MEDS: PANTOPRAZOLE 40 MG TABLET PO SCH (08:20)
[2017-06-02] MEDS: THEOPHYLLINE ER (24 HR) 300 MG CAPSULE PO SCH (08:20)
[2017-06-02] MEDS: ZAFIRLUKAST 20 MG TABLET PO SCH ×2 (08:21→21:40)
[2017-06-02] MEDS: ALLOPURINOL 100 MG TABLET PO SCH (08:21)
[2017-06-02] MEDS: MORPHINE 2 MG/1 ML SYRINGE IV PRN (08:34)
--- NOTE | 2017-06-02 08:40 | Orthopedic Progress Note ---
Orthopedics - Subjective Interval history: Mobilizing very slowly will need lengthy rehab stay. Continue with PT hematocrit 30. Discharge planning Exam - Constitutional Vitals: Period Temp Pulse Resp BP Sys/Nicolas Pulse Ox Last 24 Hr 97.4 F-98.3 F 85-107 16-20 74-102/40-56 91-96 Results - Labs CBC & BMP: 06/01/17 03:51 06/02/17 05:01
[2017-06-02] MEDS ORDERED: FUROSEMIDE 20 MG/2 ML VIAL IV SCH (09:00)
--- NOTE | 2017-06-02 10:46 | Hospitalist Progress Note ---
Assessment and Plan (1) Intertrochanteric fracture of left hip Status: Acute Assessment and plan: s/p surgery. Plan Continue with pain meds and surgery's recommendations. 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 She complains of soreness in her legs, swelling is progressively improving. Exam - Constitutional Vitals: Period Temp Pulse Resp BP Sys/Nicolas Pulse Ox Last 24 Hr 97.4 F-98.3 F 85-107 16-20 74-102/40-56 91-96 General appearance: no acute distress, morbidly obese - Head Head exam: Present: normal inspection - Respiratory Respiratory exam: Present: clear to auscultation bilaterally - Cardiovascular Cardiovascular exam: Present: regular rate and rhythm - GI/Abdominal GI/Abdominal exam: Present: normal bowel sounds - Extremities Exam Extremities exam: Present: edema - Neurological Exam Neurological exam: Present: alert, oriented X3 Results - Labs CBC & BMP: 06/01/17 03:51 06/02/17 05:01 Lab Results: I have reviewed the past 24 hour labs
--- NOTE | 2017-06-02 10:50 | Ultrasound Report ---
History: Pain and edema both lower extremities Date: 06/02/2017 Study: Bilateral lower extremity color-flow venous Doppler study Comparison exam: No previous similar Color Doppler, wave form analysis, and compression analysis of the deep veins of both lower extremities from the common femoral vein level through the popliteal vein level shows that the visualized veins are readily compressible. There is no abnormal intraluminal material to suggest thrombus. Because of technical factors, including patient size, the inferior aspect of the right superficial femoral vein could not be visualized. Waveform analysis is unremarkable. Ultrasound images were captured and archived Impression: No evidence of acute DVT is identified. Because of technical factors, including patient size, the inferior aspect of the right superficial femoral vein was not well seen and therefore not well evaluated. PROCEDURE INTERPRETED AT [facility] DEPARTMENT OF RADIOLOGY Final Report Signed by: Dr. Lindsay Yarbrough
[2017-06-02] MEDS: ZINC OXIDE PASTE 113 GM TUBE TOP SCH ×2 (16:18→21:40)
[2017-06-03 06:36] LABS: Basophils % 0.5 % (0.0-0.8); Eosinophils # 0.2 10*3/uL (0.0-0.87); Hematocrit 30.2 VOL% (35.7-47.0); Immature Granulocytes % 0.8 %; Immature Granulocytes Absolute 0.06 #; Lymphocytes # 0.8 10*3/uL (1.4-4.0); Lymphocytes % 10.3 % (21.3-54.2); Mean Corpuscular HGB Conc 33.1 GM/DL (32-36); Mean Corpuscular Hemoglobin 32 PG (27-34); Mean Corpuscular Volume 96.5 FL (87-102); Mean Platelet Volume 10.4 FL (9.6-12.0); Monocytes # 0.8 10*3/uL (0.11-0.8); Monocytes % 10.5 % (1.7-12.7); Neutrophils % 74.9 % (38.7-73.9); Platelet Count 173 T/CUMM (130-400); Red Blood Count 3.13 MC/CUMM (3.8-5.5); Red Cell Distribution Width 14.2 % (9.3-17.3)
[2017-06-03 06:54] LABS: Osmolality,Calculated 281.7 MOS/KG (273-304); Potassium 3.6 MMOL/L (3.5-5.1)
[2017-06-03] MEDS: THEOPHYLLINE ER (24 HR) 300 MG CAPSULE PO SCH (08:22)
[2017-06-03] MEDS: DOCUSATE SODIUM 100 MG CAPSULE PO SCH ×2 (08:22→20:54)
[2017-06-03] MEDS: FONDAPARINUX 2.5 MG/0.5 ML SYRINGE SUBCUT SCH (08:22)
[2017-06-03] MEDS: ZAFIRLUKAST 20 MG TABLET PO SCH ×2 (08:22→20:54)
[2017-06-03] MEDS: SUCRALFATE 1 GM TABLET PO SCH ×4 (08:22→20:54)
[2017-06-03] MEDS: PANTOPRAZOLE 40 MG TABLET PO SCH (08:22)
[2017-06-03] MEDS: ZINC OXIDE PASTE 113 GM TUBE TOP SCH ×2 (08:23→22:40)
--- NOTE | 2017-06-03 09:32 | Physician Query Form ---
CLICK EDIT DOCUMENT TO SELECT QUERY ANSWER --> OK --> SIGN Altagracia Levy RN, CCDS Certified Clinical Sh[employer] P[employer]orer W) [phone] (f) [phone] [email or web address] PROVIDERS: Make your selection(s) from the choices in EACH section by typing an "x" and enter comments in the comment section. Please use your independent medical judgment in providing your response. This request does not imply that any particular answer is desired or expected. CLINICAL INDICATORS: (Providers should not edit this section) The medical record indicates that the patient was admitted with a fractured hip , "Sarcoidosis of lung with sarcoidosis of lymph nodes", "on home oxygen" and the patient was admitted and placed on 2-3 liters O2 per NC. Based on the above, could you clarify the appropriate diagnosis, if significant , that supports the above abnormalities and additional evaluation, monitoring, and/or treatment rendered: (X ) Patient was treated or monitored for chronic respiratory failure ( ) Patient was not treated or monitored for chronic respiratory failure ( ) Other, please specify: The patient has chronic respiratory failure secondary to sarcoidosis as evidenced by her home oxygen use. She was treated in the hospital for chronic respiratory failure related to her sarcoidosis. ( ) Clinically unable to determine COMMENTS: PLEASE ALSO DOCUMENT RESPONSE IN PROGRESS NOTES AND/OR DISCHARGE SUMMARY Use of terms such as suspected, likely, or probable (associated with a specific diagnosis that is being evaluated, monitored, or treated as if it exists) are acceptable and can be restated in the discharge summary if not ruled out. MTDD
--- NOTE | 2017-06-03 09:51 | Orthopedic Progress Note ---
Orthopedics - Subjective Interval history: Progress is slow will need lengthy rehab stay dressing is dry continue with PT Exam - Constitutional Vitals: Period Temp Pulse Resp BP Sys/Nicolas Pulse Ox Last 24 Hr 97.0 F-97.8 F 95-104 16-20 93-147/49-72 91-100 Results - Labs CBC & BMP: 06/03/17 05:38 06/03/17 05:38
--- NOTE | 2017-06-03 10:40 | Pulmonology Progress Note ---
Pulmonary - PN: Subj Interval history: Hosea Ramirez, [facility] acting as scribe for Dr. Phill Wallis Mrs. Grady is a 76-year-old -[place] female who is on initial pulmonary consultation on 05/29/2017. At that time, our impressions were: #1: Acute comminuted intertrochanteric fracture on the left with medial displacement of the lesser trochanter fragment. Now, status post ORIF by Dr. Carrasquillo earlier today. #2: Pulmonary sarcoidosis #3: Gastroesophageal reflux disease #4: Hypokalemia #5: Hypertension #6: Hyperlipidemia #7: Spinal stenosis #8: History of herniated nucleus pulposus stain April 2007 and treated in [place] by Dr. Wolff and Dr. Starkey #9: History of microaspiration #10: Chronic renal failure followed by Dr. Diaz #11: Chronic low back pain followed by Dr. Carrizales #12: See past history 05/30/2017. Patient was seen today along with her nurse. She has done well since surgery. Her breathing has remained stable. She denies any increased shortness of breath. Her medications have been restarted. Medications have been reviewed. We made no changes today. Labs been reviewed. White count is 9400 with 82.0% segs; H&H 11.1/34.5; platelet count 130,000; creatinine improved to 1.20, BUN 29, electrolytes were normal; magnesium is low at 1.5 (hypomagnesemia); liver function tests within normal limits; calcium is low at 8.4 reflected in a low albumin of 3.0, total protein 6.0 06/03/2017. The patient was seen today along with her nurse. Patient was off the floor yesterday on rounds obtaining Doppler venograms of the lower extremities. The showed no evidence of deep venous thrombophlebitis. She has had some mild constipation. This is being treated by nursing staff with Dulcolax, Colace, Chronulac, and milk of magnesia. We have informed him that she can have a fleets enema if needed as well. Nursing staff reports that Kristen Benson, welfare case worker, has stated that the patient has been accepted to transfer to [facility] swing bed. From our standpoint, the patient could be moved to swing bed at any time. Note, her home dose of lisinopril HCT 20/25 mg daily was discontinued on 05/31/[address] Mario. Medications have been reviewed. We made no changes today. Labs been reviewed. White count is 8000 with 74.9% segs; H&H 10.0/30.2; platelet count 173,000; creatinine markedly improved to 0.90, BUN 33, sodium 138 , potassium 3.6, magnesium yesterday was 1.7; theophylline level on 05/30/2017 was 9.4 Exam (Progress Note) - Constitutional Vitals: Period Temp Pulse Resp BP Sys/Nicloas Pulse Ox Last 24 Hr 97.0 F-97.8 F 95-104 16-20 93-147/49-72 91-100 Exam: Chest is wheeze free Heart no gallop Abdomen is obese, but nontender and nondistended; bowel sounds are positive 4 Extremities postsurgical as per Dr. Carrasquillo; nothing to suggest acute deep venous thrombophlebitis Psychiatric oriented 3 Neurologic long-term motor function is intact Plan: We will ask for magnesium level to be run on today's BMP. Fleets enema as needed. From our standpoint, the patient can be moved to swing bed at any time. Results - Labs CBC & BMP: 06/03/17 05:38 06/03/17 05:38
--- NOTE | 2017-06-03 11:28 | Discharge Summary ---
<Susan Guillen - Last Filed: 06/03/17 11:04> Hospital Course - Hospital Course Hospital Course: Ms Grady w/PMHx of HTN, Asthma, sarcodosis on 05/29/17 presented to the ED for further evaluation of left hip pain after tripping and falling at home. IN ED Labs significant for K 2.7, BUN 32, creatinine 1.30, glucose 126, Urinalysis negative for infection, Theophylline level 15.1. CXR: suggest cardiac decompensation, nothing acute. Left Hip XR: left femur fracture,comminuted. Hospital Medicine consulted for admission: started potassium replacement, continue supplemental oxygen therapy, IV hydration, consult orthopedics for surgical intervention of left hip, consult pulmonary related to chronic sarcoidosis. Orthopedic consult/plan: 05/29/17 left intertrochanteric fracture of left hip repair with internal fixation with compression hip screw and started rehab. Pulmonary consult/plan: chronic pulmonary sarcoidosis, will continue current pulmonary home medications. Her creatinine level worsened so her Allopurinol and other nephrotoxics were held. She also received some IV Lasix for her leg swelling, doppler USS was negative for DVT. Her creatinine progressively improved and her vitals are also stable. Today 06/03/17 patient is stable and tolerating PT. She has been approved for placement to transfer to [facility] Swing Bed for continuation of care, PT, and rehab. Orthopedics agrees with plan and patient will need to follow up with clinic after discharge. She will need to follow up with Pulmonary for continuation of care for chronic Sacroidosis. She will need to follow up with Primary Care Physician. Specialty Discharge - Follow Up or Referrals Follow up with: Darrick Carrasquillo Jr., MD [Physician] - (mobile x-ray follow-up at 3 weeks and send to [address] Foreign Ball office for review and further orders.) Discharge Plan - Discharge Data Disposition: Swing Bed, [facility], [facility] - Discharge Medications New Docusate Sodium Cap [Colace Cap] 100 mg PO BID capsule Fondaparinux [Arixtra] 2.5 mg SUBCUT Q24H syringe HYDROcodone/ACETAMIN 7.5-325 [Barton 7.5-325] 1 tablet PO Q4H PRN #20 tablet PRN Reason: Pain Moderate (4-7) Pantoprazole Tab [Protonix Tab] 40 mg PO DAILY tablet traZODone [Desyrel] 50 mg PO BEDTIME PRN tablet PRN Reason: Insomnia Zinc Oxide Paste [Desitin Paste] 1 applic TOP BID applic amLODIPine [Norvasc] 5 mg PO DAILY #30 tablet Benzonatate [Tessalon] 200 mg PO TID PRN capsule PRN Reason: Cough Sucralfate Tab [Carafate Tab] 1 gm PO ACHS tablet Continue Zafirlukast 20 mg PO Q12HR Clorazepate [Tranxene] 3.75 mg PO BID Theophylline ER Cap (24 Hr) [Iban-24] 300 mg PO DAILY #30 capsule Discontinued Magnesium Chloride [Slow Mag] 64 mg PO BID Allopurinol 100 mg PO DAILY Potassium Chloride Cap/Tab [K Dur] 20 meq PO TID traMADol/ACETAMINOPH 37.5-325 [Ultracet] 2 tablet PO BID PRN PRN Reason: Pain Lisinopril/Hydrochlorothiazide [Lisinopril-Hctz 20-25 mg Tab] 1 each PO DAILY - Follow Up or Referral Follow Up: Darrick Carrasquillo Jr., MD [Physician] - (mobile x-ray follow-up at [address] Foreign Ball office for review and further orders.) - Forms/Instructions Exam - Constitutional Vitals: Period Temp Pulse Resp BP Sys/Nicolas Pulse Ox Last 24 Hr 97.2 F-98.9 F 95-104 16-20 93-147/49-94 91-100 Discharge Results Labs on day of discharge: Labs from last 24 hours 06/03/17 06/03/17 06/03/17 Unknown 05:38 05:38 WBC 8.0 RBC 3.13 L Hgb 10.0 L Hct 30.2 L MCV 96.5 MCH 32 MCHC 33.1 RDW 14.2 Plt Count 173 D MPV 10.4 Neut % (Auto) 74.9 H Lymph % (Auto) 10.3 L [place] % (Auto) 10.5 Eos % (Auto) 3.0 Baso % (Auto) 0.5 Neut # (Auto) 6.0 Lymph # (Auto) 0.8 L [place] # (Auto) 0.8 Eos # (Auto) 0.2 Baso # (Auto) 0.0 Immature Gran % 0.8 Nucleated RBC % 0.0 Immature Gran # 0.06 Nucleated RBCs # 0.00 Immature Plt Fraction 0.0 Sodium 138 Potassium 3.6 Chloride 95 L Carbon Dioxide 40 H Anion Gap 6.6 BUN 33 H Creatinine 0.90 GFR Calculation 92 BUN/Creatinine Ratio 36.00 H Glucose 98 Calculated Osmolality 281.7 Calcium 9.0 Magnesium 1.9 DS: Provider Date of admission: 05/29/17 07:27 Primary care physician: Phill Wallis MD Attending physician on admission: Alex Ramos MD Consults: 05/29/17 08:12 Consult to Physician [CONS] Routine Comment: Consulting Provider: Darrick Carrasquillo Jr. Consulting Provider Notified: Yes When should Consulting Provider be notified: Now Person Notified: bibi called Date Notified: 05/29/17 Time Notified: 08:57 05/29/17 09:07 Consult to Dietitian [CONS] Routine Reason for Dietitian: Dietary Consult Consult to Pastoral Services [CONS] Routine Comment: Pastoral Screen: Request Binding Nicker Visit Pastoral Screen Source of Request: Patient 05/29/17 09:51 Consult to Physician [CONS] Routine Comment: Femur fracture, known to you Consulting Provider: Phill Wallis When should Consulting Provider be notified: Now 05/29/17 10:30 Consult to Physician [CONS] Routine Comment: surgery clearance - patient known to you Consulting Provider: Phill Wallis Consulting Provider Notified: Yes When should Consulting Provider be notified: Now Person Notified: evan called Date Notified: 05/29/17 Time Notified: 10:39 05/29/17 13:50 Consult to Physical Therapy [CONS] Routine Reason for Physical Therapy: Evaluate and Treat Consult Comment: 25% wt bear on left 05/29/17 13:51 Consult to Case Mgmt/Social Srvs [CONS] Routine Reason for Case Mgmt/Social Srvs: Home Health Rehab Equipment Consult to Occupational Therapy [CONS] Routine Reason for Occupational Therapy: Evaluate and Treat Discharging clinician: Susan Guillen NP <Bethany Mario - Last Filed: 06/03/17 13:14> Hospital Course - Time spent with patient Time with patient DS: Greater than 30 minutes (Time spent-35mins) Diagnosis - Discharge Diagnosis (1) Intertrochanteric fracture of left hip Status: Acute (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 (3) Hypokalemia Status: Acute (4) HTN (hypertension) Status: Acute (5) Localized swelling of both lower legs Status: Acute (6) ARF (acute renal failure) Status: Acute Discharge Plan - Discharge Data Condition at Discharge: Stable Discharge Diet: advance to your usual diet Activity: resume usual activities as tolerated - Forms/Instructions Additional Discharge Instructions: Follow with PCP in 1week Exam - Constitutional General appearance: no acute distress - Head Head exam: Present: normal inspection - Neck Neck exam: Present: normal inspection - Respiratory Respiratory exam: Present: clear to auscultation bilaterally - Cardiovascular Cardiovascular exam: Present: regular rate and rhythm - GI/Abdominal GI/Abdominal exam: Present: normal bowel sounds - Extremities Exam Extremities exam: Present: edema - Neurological Exam Neurological exam: Present: alert, oriented X3
[2017-06-04 06:58] VITALS: BP 118/68
[2017-06-04] MEDS: SUCRALFATE 1 GM TABLET PO SCH (07:33)
[2017-06-04] MEDS: FONDAPARINUX 2.5 MG/0.5 ML SYRINGE SUBCUT SCH (07:34)
== END 2017-06-04 07:48 | disposition swing bed (61) | DRG 481 ==
LOC: EDBD → EDUNIT# → N.ED 04:48 → N.EDINP 07:27 → SUATTDRO 07:27 → N.EDINP 08:08 → N.3E 08:20
PROVIDERS: ADMIT Internal Medicine Cardiovascular Disease; ATTEND Internal Medicine

== ENCOUNTER 2017-07-04 13:56 | Inpatient (IN) ==
[2017-07-04] MEDS ORDERED: ETOMIDATE 20 MG/10 ML VIAL IV STA (14:15)
[2017-07-04] MEDS ORDERED: VECURONIUM 10 MG VIAL IV STA (14:15)
[2017-07-04 14:21] LABS: Basophils # 0.1 10*3/uL (0.0-0.2); Basophils % 0.8 % (0.0-0.8); Eosinophils # 0.2 10*3/uL (0.0-0.87); Eosinophils % 2.3 % (0.00-10.9); Hematocrit 42.2 VOL% (35.7-47.0); Hemoglobin 12.7 GM/DL (12.0-16.0); Immature Granulocytes % 0.5 %; Immature Granulocytes Absolute 0.03 #; Lymphocytes # 1.4 10*3/uL (1.4-4.0); Lymphocytes % 21.2 % (21.3-54.2); Mean Corpuscular HGB Conc 30.1 GM/DL (32-36); Mean Corpuscular Hemoglobin 31 PG (27-34); Mean Corpuscular Volume 103.9 FL (87-102); Mean Platelet Volume 9.3 FL (9.6-12.0); Monocytes # 0.7 10*3/uL (0.11-0.8); Monocytes % 10.3 % (1.7-12.7); Neutrophils # 4.2 10*3/uL (1.4-7.4); Neutrophils % 64.9 % (38.7-73.9); Platelet Count 175 T/CUMM (130-400); Red Blood Count 4.06 MC/CUMM (3.8-5.5); Red Cell Distribution Width 14.2 % (9.3-17.3); White Blood Count 6.4 T/CUMM (4-12)
[2017-07-04] MEDS ORDERED: SODIUM CHLORIDE 0.9% 2,000 ML IV STA (14:30)
[2017-07-04 14:40] LABS: Alanine Aminotransferase 16 U/L (13-56); Albumin 3.2 G/DL (3.4-5.0); Alkaline Phosphatase 165 U/L (45-117); Aspartate Amino Transferase 20 U/L (0-37); Blood Urea Nitrogen 47 MG/DL (7-18); Calcium 9.2 MG/DL (8.5-10.1); Glucose 98 MG/DL (74-106); Osmolality,Calculated 284.8 MOS/KG (273-304); Potassium 4.6 MMOL/L (3.5-5.1); Sodium 137 MMOL/L (136-145); Total Protein 6.8 G/DL (6.4-8.3)
[2017-07-04 14:42] LABS: Troponin I Only 0.092 NG/ML (0.00-0.045)
[2017-07-04] MEDS: MIDAZOLAM 100 MG in SODIUM CHLORIDE 0.9% 80 ML IV SCH (14:55)
[2017-07-04 17:04] LABS: Apearance,Urine Slightly Hazy (Clear); Bilirubin,Urine Negative (Negative); Blood, Urine Negative (Negative); Glucose,Urine (UA) Negative (Negative); Hyaline Casts,Urine 7 /LPF (0-3); Ketones,Urine Negative (Negative); Nitrite,Urine Negative (Negative); Protein,Urine Negative; RBC,Urine 1 /HPF (0-4); Squamous Epithelial Cell,Urine Occasional /HPF (0-10); Urine Color Yellow (Yellow); Urine Specific Gravity 1.012 (1.001-1.035); Urine Urobilinogen < 2.0 EU/DL (0.2-1.0); WBC,Urine 1 /HPF (0-6)
[2017-07-04] MEDS ORDERED: VECURONIUM 10 MG VIAL IV ONE (17:22)
[2017-07-04] MEDS ORDERED: ETOMIDATE 20 MG/10 ML VIAL IV ONE (17:22)
[2017-07-04] MEDS ORDERED: ALBUTEROL 2.5 MG/3 ML NEB RESP TX PRN (19:01)
[2017-07-04] MEDS ORDERED: NOREPINEPHRINE 8 MG in SODIUM CHLORIDE 0.9% 242 ML IV SCH (19:01)
[2017-07-04 19:37] LABS: ABG Base Excess 12.6 MMOL/L (-2.5-2.5); ABG HCO3 35.4 MMOL/L (20-26); ABG Oxygen Saturation 99.9 % (95-100); ABG PCO2 38.3 MM HG (35-48); ABG PH 7.584 (7.35-7.45); ABG PO2 573.3 MM HG (80-95); ABG TCO2 36.6 MMOL/L (23-27)
[2017-07-04] MEDS: PANTOPRAZOLE 40 MG VIAL IV SCH (20:15)
[2017-07-04] MEDS: FUROSEMIDE 40 MG/4 ML VIAL IV SCH (20:17)
[2017-07-04] MEDS: ENOXAPARIN 30 MG/0.3 ML SYRINGE SUBCUT SCH (20:19)
[2017-07-05 03:24] LABS: ABG Base Excess 16.1 MMOL/L (-2.5-2.5); ABG Oxygen Saturation 99.3 % (95-100); ABG PCO2 44.6 MM HG (35-48); ABG PH 7.571 (7.35-7.45); ABG PO2 168.8 MM HG (80-95); ABG TCO2 41.4 MMOL/L (23-27); Allen Test Positive; Pt O2 Delivery Device Ventilator
[2017-07-05 06:50] LABS: Basophils % 0.6 % (0.0-0.8); Eosinophils # 0.1 10*3/uL (0.0-0.87); Hematocrit 38.4 VOL% (35.7-47.0); Hemoglobin 12.8 GM/DL (12.0-16.0); Immature Granulocytes % 0.6 %; Immature Granulocytes Absolute 0.04 #; Lymphocytes # 0.7 10*3/uL (1.4-4.0); Lymphocytes % 10.3 % (21.3-54.2); Mean Corpuscular HGB Conc 33.3 GM/DL (32-36); Mean Corpuscular Hemoglobin 32 PG (27-34); Mean Corpuscular Volume 95.3 FL (87-102); Mean Platelet Volume 10.1 FL (9.6-12.0); Monocytes # 0.7 10*3/uL (0.11-0.8); Monocytes % 9.8 % (1.7-12.7); Neutrophils # 5.3 10*3/uL (1.4-7.4); Neutrophils % 76.7 % (38.7-73.9); Platelet Count 139 T/CUMM (130-400); Red Blood Count 4.03 MC/CUMM (3.8-5.5); Red Cell Distribution Width 14.4 % (9.3-17.3); White Blood Count 6.9 T/CUMM (4-12)
[2017-07-05 07:24] LABS: Calcium 9.2 MG/DL (8.5-10.1); Magnesium 1.8 MG/DL (1.8-2.4); Osmolality,Calculated 292.3 MOS/KG (273-304); Potassium 3.6 MMOL/L (3.5-5.1)
[2017-07-05] MEDS: FUROSEMIDE 40 MG/4 ML VIAL IV SCH ×2 (09:16→18:15)
[2017-07-05] MEDS: methylPREDNISolone SOD SUC 40 MG/1 ML VIAL IV SCH ×2 (09:16→18:43)
[2017-07-05] MEDS: AZITHROMYCIN INJ 500 MG in SODIUM CHLORIDE 0.9% 250 ML IV SCH (10:30)
[2017-07-05] MEDS: MIDAZOLAM 100 MG in SODIUM CHLORIDE 0.9% 80 ML IV SCH (14:00)
[2017-07-05] MEDS: PANTOPRAZOLE 40 MG VIAL IV SCH (19:26)
[2017-07-05] MEDS: ENOXAPARIN 30 MG/0.3 ML SYRINGE SUBCUT SCH (19:29)
[2017-07-05] MEDS: PROPOFOL 1,000 MG/100 ML BOTTLE IV SCH (19:55)
[2017-07-05] MEDS: ZINC OXIDE PASTE 113 GM TUBE TOP SCH (21:12)
[2017-07-06] MEDS: methylPREDNISolone SOD SUC 40 MG/1 ML VIAL IV SCH ×4 (00:15→23:56)
[2017-07-06] MEDS: PROPOFOL 1,000 MG/100 ML BOTTLE IV SCH ×4 (02:45→23:15)
[2017-07-06 03:13] LABS: ABG Base Excess 17.8 MMOL/L (-2.5-2.5); ABG HCO3 40.8 MMOL/L (20-26); ABG Oxygen Saturation 98.7 % (95-100); ABG PCO2 40.8 MM HG (35-48); ABG PH 7.618 (7.35-7.45); ABG PO2 116.3 MM HG (80-95); ABG TCO2 42.1 MMOL/L (23-27); Allen Test Positive; Pt O2 Delivery Device Ventilator
[2017-07-06 08:01] LABS: Basophils % 0.2 % (0.0-0.8); Hematocrit 35.4 VOL% (35.7-47.0); Hemoglobin 11.8 GM/DL (12.0-16.0); Immature Granulocytes % 0.5 %; Immature Granulocytes Absolute 0.03 #; Lymphocytes # 0.5 10*3/uL (1.4-4.0); Lymphocytes % 8.1 % (21.3-54.2); Mean Corpuscular HGB Conc 33.3 GM/DL (32-36); Mean Corpuscular Hemoglobin 32 PG (27-34); Mean Corpuscular Volume 94.4 FL (87-102); Mean Platelet Volume 10.3 FL (9.6-12.0); Monocytes # 0.3 10*3/uL (0.11-0.8); Monocytes % 3.9 % (1.7-12.7); Neutrophils # 5.6 10*3/uL (1.4-7.4); Neutrophils % 87.3 % (38.7-73.9); Platelet Count 143 T/CUMM (130-400); Red Blood Count 3.75 MC/CUMM (3.8-5.5); Red Cell Distribution Width 14.3 % (9.3-17.3); White Blood Count 6.4 T/CUMM (4-12)
[2017-07-06 08:17] LABS: Magnesium 1.7 MG/DL (1.8-2.4); Potassium 2.9 MMOL/L (3.5-5.1)
[2017-07-06] MEDS: POTASSIUM CHLORIDE RIDER 10 MEQ in PREMIX 1 EACH IV PRN ×5 (08:50→16:02)
[2017-07-06] MEDS ORDERED: MAGNESIUM SULF RIDER 4 GM in PREMIX 1 EACH IV PRN (08:55)
[2017-07-06] MEDS ORDERED: MAGNESIUM SULF RIDER 2 GM in PREMIX 1 EACH IV PRN (08:55)
[2017-07-06] MEDS ORDERED: POTASSIUM CHLORIDE RIDER 100 ML IV ONE (08:59)
[2017-07-06] MEDS ORDERED: MAGNESIUM SULF RIDER 50 ML IV ONE (08:59)
[2017-07-06] MEDS: ZINC OXIDE PASTE 113 GM TUBE TOP SCH ×2 (09:00→21:15)
[2017-07-06] MEDS: AZITHROMYCIN INJ 500 MG in SODIUM CHLORIDE 0.9% 250 ML IV SCH (11:55)
[2017-07-06] MEDS: ENOXAPARIN 30 MG/0.3 ML SYRINGE SUBCUT SCH (18:25)
[2017-07-06] MEDS: PANTOPRAZOLE 40 MG VIAL IV SCH (18:25)
[2017-07-07 03:11] LABS: ABG Base Excess 13.1 MMOL/L (-2.5-2.5); ABG PCO2 46.4 MM HG (35-48); ABG PH 7.521 (7.35-7.45); ABG TCO2 33.3 MMOL/L (23-27); Allen Test Positive; Pt O2 Delivery Device Ventilator
[2017-07-07] MEDS: PROPOFOL 1,000 MG/100 ML BOTTLE IV SCH ×3 (05:15→20:15)
[2017-07-07 05:21] LABS: Basophils % 0.1 % (0.0-0.8); Hematocrit 37.3 VOL% (35.7-47.0); Hemoglobin 12.4 GM/DL (12.0-16.0); Immature Granulocytes % 0.9 %; Immature Granulocytes Absolute 0.06 #; Lymphocytes # 0.6 10*3/uL (1.4-4.0); Lymphocytes % 8.4 % (21.3-54.2); Mean Corpuscular HGB Conc 33.2 GM/DL (32-36); Mean Corpuscular Hemoglobin 32 PG (27-34); Mean Corpuscular Volume 95.2 FL (87-102); Mean Platelet Volume 10.9 FL (9.6-12.0); Monocytes # 0.2 10*3/uL (0.11-0.8); Monocytes % 3.3 % (1.7-12.7); Neutrophils # 6.2 10*3/uL (1.4-7.4); Neutrophils % 87.3 % (38.7-73.9); Platelet Count 131 T/CUMM (130-400); Red Blood Count 3.92 MC/CUMM (3.8-5.5); Red Cell Distribution Width 14.6 % (9.3-17.3)
[2017-07-07 05:56] LABS: Albumin 2.9 G/DL (3.4-5.0); Bilirubin,Total 1.1 MG/DL (0.2-1.0); Calcium 9.1 MG/DL (8.5-10.1); Osmolality,Calculated 301.1 MOS/KG (273-304); Potassium 3.3 MMOL/L (3.5-5.1); Total Protein 6.2 G/DL (6.4-8.3)
[2017-07-07] MEDS: POTASSIUM CHLORIDE RIDER 10 MEQ in PREMIX 1 EACH IV PRN ×4 (06:36→11:05)
[2017-07-07] MEDS: methylPREDNISolone SOD SUC 40 MG/1 ML VIAL IV SCH ×3 (08:07→23:28)
[2017-07-07] MEDS: ZINC OXIDE PASTE 113 GM TUBE TOP SCH ×2 (08:09→20:37)
[2017-07-07] MEDS ORDERED: INFLUENZA VIRUS VACCINE 0.5 ML SYRINGE IM ONE (09:00)
[2017-07-07] MEDS: AZITHROMYCIN INJ 500 MG in SODIUM CHLORIDE 0.9% 250 ML IV SCH (10:33)
[2017-07-07 10:56] LABS: ABG Base Excess 11.7 MMOL/L (-2.5-2.5); ABG HCO3 35.5 MMOL/L (20-26); ABG Oxygen Saturation 98.6 % (95-100); ABG PCO2 54.8 MM HG (35-48); ABG TCO2 33.4 MMOL/L (23-27); Allen Test Positive; Pt O2 Delivery Device Ventilator
[2017-07-07] MEDS ORDERED: GLUCAGON 1 MG VIAL IM PRN (14:19)
[2017-07-07] MEDS ORDERED: DEXTROSE 50% 25 GM/50 ML VIAL IV PRN (14:19)
[2017-07-07] MEDS: INSULIN REGULAR 100 UNIT/ML SUBCUT SCH ×2 (18:23→23:31)
[2017-07-07] MEDS: PANTOPRAZOLE 40 MG VIAL IV SCH (18:36)
[2017-07-07] MEDS: ENOXAPARIN 30 MG/0.3 ML SYRINGE SUBCUT SCH (18:36)
[2017-07-08] MEDS: PROPOFOL 1,000 MG/100 ML BOTTLE IV SCH ×4 (03:12→20:01)
[2017-07-08 03:46] LABS: ABG HCO3 39.4 MMOL/L (20-26); ABG Oxygen Saturation 98.5 % (95-100); ABG PCO2 57.8 MM HG (35-48); ABG PH 7.451 (7.35-7.45); ABG PO2 120.1 MM HG (80-95); ABG TCO2 41.1 MMOL/L (23-27)
[2017-07-08] MEDS: INSULIN REGULAR 100 UNIT/ML SUBCUT SCH ×4 (05:48→23:58)
[2017-07-08 08:23] LABS: Magnesium 2.6 MG/DL (1.8-2.4); Phosphorous 4.8 MG/DL (2.5-4.9); Prealbumin 22.3 MG/DL (20-40)
[2017-07-08] MEDS: methylPREDNISolone SOD SUC 40 MG/1 ML VIAL IV SCH ×3 (08:30→23:45)
[2017-07-08] MEDS: ZINC OXIDE PASTE 113 GM TUBE TOP SCH ×2 (08:37→20:33)
[2017-07-08 08:41] LABS: Calcium 8.9 MG/DL (8.5-10.1); Osmolality,Calculated 305.1 MOS/KG (273-304)
[2017-07-08] MEDS: AZITHROMYCIN INJ 500 MG in SODIUM CHLORIDE 0.9% 250 ML IV SCH (09:07)
[2017-07-08] MEDS: POTASSIUM CHLORIDE RIDER 10 MEQ in PREMIX 1 EACH IV PRN ×5 (11:54→16:21)
[2017-07-08] MEDS: LEVOTHYROXINE 100 MCG VIAL IV SCH (11:54)
[2017-07-08] MEDS: PANTOPRAZOLE 40 MG VIAL IV SCH (18:40)
[2017-07-08] MEDS: ENOXAPARIN 30 MG/0.3 ML SYRINGE SUBCUT SCH (18:40)
[2017-07-09] MEDS: POTASSIUM CHLORIDE RIDER 10 MEQ in PREMIX 1 EACH IV PRN ×4 (00:48→05:17)
[2017-07-09 03:56] LABS: ABG Base Excess 10.2 MMOL/L (-2.5-2.5); ABG Oxygen Saturation 99.3 % (95-100); ABG PCO2 62.8 MM HG (35-48); ABG PH 7.388 (7.35-7.45); ABG TCO2 33.6 MMOL/L (23-27)
[2017-07-09] MEDS: INSULIN REGULAR 100 UNIT/ML SUBCUT SCH ×3 (06:25→18:12)
[2017-07-09] MEDS: LEVOTHYROXINE 100 MCG VIAL IV SCH (06:25)
[2017-07-09 06:47] LABS: Calcium 8.5 MG/DL (8.5-10.1); Magnesium 2.8 MG/DL (1.8-2.4); Potassium 4.1 MMOL/L (3.5-5.1)
[2017-07-09] MEDS: PROPOFOL 1,000 MG/100 ML BOTTLE IV SCH ×2 (06:56→20:10)
[2017-07-09] MEDS: methylPREDNISolone SOD SUC 40 MG/1 ML VIAL IV SCH ×2 (08:27→16:56)
[2017-07-09] MEDS: ZINC OXIDE PASTE 113 GM TUBE TOP SCH ×2 (08:29→20:10)
[2017-07-09 10:41] LABS: ABG Base Excess 9.9 MMOL/L (-2.5-2.5); ABG HCO3 33.6 MMOL/L (20-26); ABG Oxygen Saturation 96.1 % (95-100); ABG PCO2 68.8 MM HG (35-48); ABG PH 7.356 (7.35-7.45); ABG PO2 82.9 MM HG (80-95); ABG TCO2 34.1 MMOL/L (23-27); Allen Test Positive; Pt O2 Delivery Device Ventilator
[2017-07-09] MEDS ORDERED: AMINOPHYLLINE 250 MG in SODIUM CHLORIDE 0.9% 100 ML IV ONE (11:00)
[2017-07-09] MEDS: AMINOPHYLLINE 500 MG in SODIUM CHLORIDE 0.9% 480 ML IV SCH (15:30)
[2017-07-09] MEDS: ENOXAPARIN 30 MG/0.3 ML SYRINGE SUBCUT SCH (18:13)
[2017-07-09] MEDS: PANTOPRAZOLE 40 MG VIAL IV SCH (18:13)
[2017-07-10] MEDS: INSULIN REGULAR 100 UNIT/ML SUBCUT SCH ×4 (00:04→18:16)
[2017-07-10] MEDS: methylPREDNISolone SOD SUC 40 MG/1 ML VIAL IV SCH ×3 (00:05→15:00)
[2017-07-10] MEDS: PROPOFOL 1,000 MG/100 ML BOTTLE IV SCH ×5 (00:05→20:36)
[2017-07-10 03:31] LABS: ABG Base Excess 7.8 MMOL/L (-2.5-2.5); ABG HCO3 31.6 MMOL/L (20-26); ABG Oxygen Saturation 98.2 % (95-100); ABG PCO2 54.2 MM HG (35-48); ABG PH 7.409 (7.35-7.45); ABG PO2 97.1 MM HG (80-95); ABG TCO2 30.1 MMOL/L (23-27); Allen Test Positive; Pt O2 Delivery Device Ventilator
[2017-07-10] MEDS: LEVOTHYROXINE 100 MCG VIAL IV SCH (06:23)
[2017-07-10 06:35] LABS: Basophils % 0.1 % (0.0-0.8); Hematocrit 39.5 VOL% (35.7-47.0); Hemoglobin 12.7 GM/DL (12.0-16.0); Immature Granulocytes % 1.1 %; Lymphocytes # 0.5 10*3/uL (1.4-4.0); Lymphocytes % 5.2 % (21.3-54.2); Mean Corpuscular HGB Conc 32.2 GM/DL (32-36); Mean Corpuscular Hemoglobin 31 PG (27-34); Mean Corpuscular Volume 97.5 FL (87-102); Mean Platelet Volume 11.5 FL (9.6-12.0); Monocytes # 0.4 10*3/uL (0.11-0.8); Monocytes % 4.4 % (1.7-12.7); Neutrophils # 8.1 10*3/uL (1.4-7.4); Neutrophils % 89.2 % (38.7-73.9); Platelet Count 148 T/CUMM (130-400); Red Blood Count 4.05 MC/CUMM (3.8-5.5); Red Cell Distribution Width 13.9 % (9.3-17.3); White Blood Count 9.1 T/CUMM (4-12)
[2017-07-10 06:38] LABS: Partial Thromboplastin Time 23.8 SECS (0-40)
[2017-07-10 07:04] LABS: Calcium 8.2 MG/DL (8.5-10.1); Magnesium 2.7 MG/DL (1.8-2.4)
[2017-07-10 07:05] LABS: Potassium 3.6 MMOL/L (3.5-5.1)
[2017-07-10] MEDS: POTASSIUM CHLORIDE RIDER 10 MEQ in PREMIX 1 EACH IV PRN ×2 (08:12→09:15)
[2017-07-10] MEDS: ZINC OXIDE PASTE 113 GM TUBE TOP SCH ×2 (08:13→20:16)
[2017-07-10] MEDS: AMINOPHYLLINE 500 MG in SODIUM CHLORIDE 0.9% 480 ML IV SCH (15:01)
[2017-07-10] MEDS: ENOXAPARIN 30 MG/0.3 ML SYRINGE SUBCUT SCH (18:16)
[2017-07-10] MEDS: PANTOPRAZOLE 40 MG VIAL IV SCH (18:16)
[2017-07-11] MEDS: INSULIN REGULAR 100 UNIT/ML SUBCUT SCH ×4 (01:09→18:36)
[2017-07-11] MEDS: methylPREDNISolone SOD SUC 40 MG/1 ML VIAL IV SCH ×3 (01:09→15:00)
[2017-07-11] MEDS: PROPOFOL 1,000 MG/100 ML BOTTLE IV SCH ×5 (01:12→20:27)
[2017-07-11 03:31] LABS: ABG Base Excess 10.1 MMOL/L (-2.5-2.5); ABG HCO3 36.4 MMOL/L (20-26); ABG Oxygen Saturation 97.1 % (95-100); ABG PCO2 56.8 MM HG (35-48); ABG PH 7.425 (7.35-7.45); ABG PO2 87.7 MM HG (80-95); ABG TCO2 38.2 MMOL/L (23-27)
[2017-07-11 05:40] LABS: Basophils % 0.1 % (0.0-0.8); Eosinophils % 0.1 % (0.00-10.9); Hematocrit 39.7 VOL% (35.7-47.0); Hemoglobin 12.6 GM/DL (12.0-16.0); Immature Granulocytes % 0.7 %; Immature Granulocytes Absolute 0.06 #; Lymphocytes # 0.5 10*3/uL (1.4-4.0); Lymphocytes % 5.5 % (21.3-54.2); Mean Corpuscular HGB Conc 31.7 GM/DL (32-36); Mean Corpuscular Hemoglobin 31 PG (27-34); Mean Corpuscular Volume 97.8 FL (87-102); Mean Platelet Volume 11.4 FL (9.6-12.0); Monocytes # 0.4 10*3/uL (0.11-0.8); Monocytes % 4.1 % (1.7-12.7); Neutrophils % 89.5 % (38.7-73.9); Platelet Count 149 T/CUMM (130-400); Red Blood Count 4.06 MC/CUMM (3.8-5.5)
[2017-07-11 06:13] LABS: Calcium 8.8 MG/DL (8.5-10.1); Magnesium 2.6 MG/DL (1.8-2.4); Osmolality,Calculated 301.8 MOS/KG (273-304); Potassium 3.4 MMOL/L (3.5-5.1)
[2017-07-11] MEDS: POTASSIUM CHLORIDE RIDER 10 MEQ in PREMIX 1 EACH IV PRN ×3 (06:36→09:05)
[2017-07-11] MEDS: LEVOTHYROXINE 100 MCG VIAL IV SCH (06:36)
[2017-07-11] MEDS: ZINC OXIDE PASTE 113 GM TUBE TOP SCH ×2 (09:06→20:28)
[2017-07-11] MEDS ORDERED: INFLUENZA VIRUS VACCINE 0.5 ML SYRINGE IM ONE (11:30)
[2017-07-11] MEDS: AMINOPHYLLINE 500 MG in SODIUM CHLORIDE 0.9% 480 ML IV SCH (15:07)
[2017-07-11] MEDS: ENOXAPARIN 30 MG/0.3 ML SYRINGE SUBCUT SCH (20:26)
[2017-07-11] MEDS: PANTOPRAZOLE 40 MG VIAL IV SCH (20:27)
[2017-07-12] MEDS: INSULIN REGULAR 100 UNIT/ML SUBCUT SCH ×4 (00:14→18:23)
[2017-07-12] MEDS: methylPREDNISolone SOD SUC 40 MG/1 ML VIAL IV SCH ×3 (00:15→16:07)
[2017-07-12] MEDS: PROPOFOL 1,000 MG/100 ML BOTTLE IV SCH ×6 (00:50→23:50)
[2017-07-12 03:51] LABS: Allen Test Positive; Pt O2 Delivery Device Ventilator
[2017-07-12 03:52] LABS: ABG Base Excess 9.7 MMOL/L (-2.5-2.5); ABG HCO3 36.4 MMOL/L (20-26); ABG Oxygen Saturation 97.6 % (95-100); ABG PCO2 59.3 MM HG (35-48); ABG PH 7.406 (7.35-7.45); ABG PO2 92.4 MM HG (80-95); ABG TCO2 38.2 MMOL/L (23-27)
[2017-07-12 04:52] LABS: Basophils % 0.1 % (0.0-0.8); Hematocrit 38.1 VOL% (35.7-47.0); Immature Granulocytes % 0.8 %; Immature Granulocytes Absolute 0.07 #; Lymphocytes # 0.5 10*3/uL (1.4-4.0); Lymphocytes % 5.6 % (21.3-54.2); Mean Corpuscular HGB Conc 31.5 GM/DL (32-36); Mean Corpuscular Hemoglobin 31 PG (27-34); Mean Platelet Volume 11.7 FL (9.6-12.0); Monocytes # 0.4 10*3/uL (0.11-0.8); Neutrophils % 89.5 % (38.7-73.9); Platelet Count 144 T/CUMM (130-400); Red Blood Count 3.85 MC/CUMM (3.8-5.5); White Blood Count 8.9 T/CUMM (4-12)
[2017-07-12 05:29] LABS: Calcium 8.5 MG/DL (8.5-10.1); Magnesium 2.6 MG/DL (1.8-2.4); Osmolality,Calculated 303.6 MOS/KG (273-304); Potassium 3.8 MMOL/L (3.5-5.1)
[2017-07-12] MEDS: LEVOTHYROXINE 100 MCG VIAL IV SCH (06:32)
[2017-07-12] MEDS: cefTRIAXone 1,000 MG in SYRINGE 1 EACH IV SCH (09:24)
[2017-07-12] MEDS: ZINC OXIDE PASTE 113 GM TUBE TOP SCH ×2 (09:24→21:35)
[2017-07-12] MEDS: VANCOMYCIN INJ 1,750 MG in SODIUM CHLORIDE 0.9% 500 ML IV SCH ×2 (09:33→21:34)
[2017-07-12] MEDS: AMINOPHYLLINE 500 MG in SODIUM CHLORIDE 0.9% 480 ML IV SCH ×2 (16:07→19:50)
[2017-07-12] MEDS: PANTOPRAZOLE 40 MG VIAL IV SCH (18:22)
[2017-07-12] MEDS: ENOXAPARIN 40 MG/0.4 ML SYRINGE SUBCUT SCH (18:23)
[2017-07-13] MEDS: INSULIN REGULAR 100 UNIT/ML SUBCUT SCH ×4 (00:21→18:30)
[2017-07-13] MEDS: methylPREDNISolone SOD SUC 40 MG/1 ML VIAL IV SCH ×3 (00:24→15:54)
[2017-07-13] MEDS: PROPOFOL 1,000 MG/100 ML BOTTLE IV SCH ×4 (03:30→23:30)
[2017-07-13 03:52] LABS: ABG Base Excess 6.8 MMOL/L (-2.5-2.5); ABG HCO3 30.7 MMOL/L (20-26); ABG Oxygen Saturation 98.2 % (95-100); ABG PCO2 52.3 MM HG (35-48); ABG PH 7.408 (7.35-7.45); ABG PO2 93.4 MM HG (80-95); ABG TCO2 29.2 MMOL/L (23-27); Allen Test Positive; Pt O2 Delivery Device Ventilator
[2017-07-13 04:48] LABS: Calcium 7.3 MG/DL (8.5-10.1); Magnesium 2.3 MG/DL (1.8-2.4); Osmolality,Calculated 299.8 MOS/KG (273-304); Potassium 3.5 MMOL/L (3.5-5.1)
[2017-07-13] MEDS: LEVOTHYROXINE 100 MCG VIAL IV SCH (06:39)
[2017-07-13] MEDS: POTASSIUM CHLORIDE RIDER 10 MEQ in PREMIX 1 EACH IV PRN ×3 (06:54→09:05)
[2017-07-13] MEDS: DORNASE ALFA 2.5 MG/2.5 ML VIAL RESP TX SCH ×2 (07:33→20:06)
[2017-07-13] MEDS: cefTRIAXone 1,000 MG in SYRINGE 1 EACH IV SCH (10:52)
[2017-07-13] MEDS: ZINC OXIDE PASTE 113 GM TUBE TOP SCH ×2 (10:57→20:32)
[2017-07-13] MEDS: AMINOPHYLLINE 500 MG in SODIUM CHLORIDE 0.9% 480 ML IV SCH (15:54)
[2017-07-13] MEDS: ENOXAPARIN 40 MG/0.4 ML SYRINGE SUBCUT SCH (19:22)
[2017-07-13] MEDS: PANTOPRAZOLE 40 MG VIAL IV SCH (20:32)
[2017-07-14] MEDS: methylPREDNISolone SOD SUC 40 MG/1 ML VIAL IV SCH ×3 (00:52→16:00)
[2017-07-14] MEDS: INSULIN REGULAR 100 UNIT/ML SUBCUT SCH ×4 (00:53→18:21)
[2017-07-14] MEDS: PROPOFOL 1,000 MG/100 ML BOTTLE IV SCH ×3 (03:08→17:37)
[2017-07-14 03:22] LABS: Allen Test Positive; Pt O2 Delivery Device Ventilator
[2017-07-14 03:23] LABS: ABG Base Excess 4.6 MMOL/L (-2.5-2.5); ABG HCO3 28.6 MMOL/L (20-26); ABG Oxygen Saturation 98.6 % (95-100); ABG PCO2 46.6 MM HG (35-48); ABG PH 7.418 (7.35-7.45); ABG TCO2 26.2 MMOL/L (23-27)
[2017-07-14] MEDS: LEVOTHYROXINE 100 MCG VIAL IV SCH (06:29)
[2017-07-14 07:51] LABS: Calcium 8.8 MG/DL (8.5-10.1); Osmolality,Calculated 303.4 MOS/KG (273-304); Potassium 3.6 MMOL/L (3.5-5.1)
[2017-07-14] MEDS: DORNASE ALFA 2.5 MG/2.5 ML VIAL RESP TX SCH ×2 (08:02→20:12)
[2017-07-14 08:13] LABS: Magnesium 2.5 MG/DL (1.8-2.4); Prealbumin 46.1 MG/DL (20-40)
[2017-07-14] MEDS: cefTRIAXone 1,000 MG in SYRINGE 1 EACH IV SCH (09:52)
[2017-07-14] MEDS: POTASSIUM CHLORIDE RIDER 10 MEQ in PREMIX 1 EACH IV PRN ×2 (09:57→10:58)
[2017-07-14 10:50] LABS: Allen Test Positive
[2017-07-14 10:53] LABS: ABG Base Excess 5.4 MMOL/L (-2.5-2.5); ABG HCO3 30.8 MMOL/L (20-26); ABG Oxygen Saturation 96.9 % (95-100); ABG PCO2 47.7 MM HG (35-48); ABG PH 7.428 (7.35-7.45); ABG PO2 83.1 MM HG (80-95); ABG TCO2 32.3 MMOL/L (23-27)
[2017-07-14] MEDS: ZINC OXIDE PASTE 113 GM TUBE TOP SCH ×2 (11:29→20:00)
[2017-07-14] MEDS: PANTOPRAZOLE 40 MG VIAL IV SCH (18:18)
[2017-07-14] MEDS: ENOXAPARIN 40 MG/0.4 ML SYRINGE SUBCUT SCH (18:18)
[2017-07-14] MEDS: AMINOPHYLLINE 500 MG in SODIUM CHLORIDE 0.9% 480 ML IV SCH (19:51)
[2017-07-15] MEDS: PROPOFOL 1,000 MG/100 ML BOTTLE IV SCH ×3 (00:24→23:18)
[2017-07-15] MEDS: INSULIN REGULAR 100 UNIT/ML SUBCUT SCH ×5 (00:25→23:38)
[2017-07-15] MEDS: methylPREDNISolone SOD SUC 40 MG/1 ML VIAL IV SCH ×4 (00:25→23:22)
[2017-07-15] MEDS: DORNASE ALFA 2.5 MG/2.5 ML VIAL RESP TX SCH ×2 (07:01→18:51)
[2017-07-15 09:55] LABS: Calcium 8.5 MG/DL (8.5-10.1); Magnesium 2.6 MG/DL (1.8-2.4); Osmolality,Calculated 302.4 MOS/KG (273-304); Potassium 3.5 MMOL/L (3.5-5.1)
[2017-07-15 10:02] LABS: Eosinophils % 0.1 % (0.00-10.9); Hematocrit 38.6 VOL% (35.7-47.0); Hemoglobin 12.8 GM/DL (12.0-16.0); Immature Granulocytes % 1.1 %; Immature Granulocytes Absolute 0.09 #; Lymphocytes # 0.6 10*3/uL (1.4-4.0); Lymphocytes % 7.1 % (21.3-54.2); Mean Corpuscular HGB Conc 33.2 GM/DL (32-36); Mean Corpuscular Hemoglobin 32 PG (27-34); Mean Corpuscular Volume 96.3 FL (87-102); Mean Platelet Volume 11.1 FL (9.6-12.0); Monocytes # 0.6 10*3/uL (0.11-0.8); Monocytes % 6.9 % (1.7-12.7); Neutrophils # 7.2 10*3/uL (1.4-7.4); Neutrophils % 84.8 % (38.7-73.9); Platelet Count 163 T/CUMM (130-400); Red Blood Count 4.01 MC/CUMM (3.8-5.5); White Blood Count 8.5 T/CUMM (4-12)
[2017-07-15 10:09] LABS: ABG Oxygen Saturation 98.2 % (95-100); ABG PCO2 45.5 MM HG (35-48); ABG PH 7.416 (7.35-7.45); ABG PO2 96.4 MM HG (80-95); ABG TCO2 25.7 MMOL/L (23-27)
[2017-07-15 10:13] LABS: Partial Thromboplastin Time 24.5 SECS (0-40)
[2017-07-15] MEDS: LEVOTHYROXINE 100 MCG VIAL IV SCH (10:36)
[2017-07-15] MEDS: cefTRIAXone 1,000 MG in SYRINGE 1 EACH IV SCH (10:40)
[2017-07-15] MEDS: POTASSIUM CHLORIDE RIDER 10 MEQ in PREMIX 1 EACH IV PRN ×3 (10:51→13:01)
[2017-07-15] MEDS: ZINC OXIDE PASTE 113 GM TUBE TOP SCH ×2 (12:06→20:12)
[2017-07-15] MEDS: PANTOPRAZOLE 40 MG VIAL IV SCH (18:10)
[2017-07-15] MEDS: ENOXAPARIN 40 MG/0.4 ML SYRINGE SUBCUT SCH (18:10)
[2017-07-15] MEDS: AMINOPHYLLINE 500 MG in SODIUM CHLORIDE 0.9% 480 ML IV SCH (21:31)
[2017-07-16 02:59] LABS: Allen Test Positive; Pt O2 Delivery Device Ventilator
[2017-07-16 03:06] LABS: ABG Base Excess 3.9 MMOL/L (-2.5-2.5); ABG HCO3 28.6 MMOL/L (20-26); ABG Oxygen Saturation 98.3 % (95-100); ABG PCO2 43.4 MM HG (35-48); ABG PH 7.437 (7.35-7.45); ABG PO2 109.7 MM HG (80-95); ABG TCO2 29.9 MMOL/L (23-27)
[2017-07-16 03:54] LABS: Hematocrit 38.1 VOL% (35.7-47.0); Hemoglobin 12.4 GM/DL (12.0-16.0); Immature Granulocytes % 0.8 %; Immature Granulocytes Absolute 0.06 #; Lymphocytes # 0.4 10*3/uL (1.4-4.0); Lymphocytes % 4.9 % (21.3-54.2); Mean Corpuscular HGB Conc 32.5 GM/DL (32-36); Mean Corpuscular Hemoglobin 31 PG (27-34); Mean Corpuscular Volume 95.5 FL (87-102); Mean Platelet Volume 11.3 FL (9.6-12.0); Monocytes # 0.4 10*3/uL (0.11-0.8); Monocytes % 5.4 % (1.7-12.7); Neutrophils # 6.5 10*3/uL (1.4-7.4); Neutrophils % 88.9 % (38.7-73.9); Platelet Count 152 T/CUMM (130-400); Red Blood Count 3.99 MC/CUMM (3.8-5.5); Red Cell Distribution Width 13.8 % (9.3-17.3); White Blood Count 7.3 T/CUMM (4-12)
[2017-07-16 04:25] LABS: Calcium 8.6 MG/DL (8.5-10.1); Magnesium 2.4 MG/DL (1.8-2.4)
[2017-07-16 04:26] LABS: Osmolality,Calculated 303.4 MOS/KG (273-304); Potassium 3.6 MMOL/L (3.5-5.1)
[2017-07-16] MEDS: PROPOFOL 1,000 MG/100 ML BOTTLE IV SCH ×2 (04:53→23:09)
[2017-07-16 05:02] LABS: Band Neutrophils 1 % (0-10); Lymphocytes 3 % (20-55); Segmented Neutrophils 91 % (50-85); Total Cells Counted 100
[2017-07-16 05:03] LABS: Platelet Estimate Adequate; Tear Drop Cells Few
[2017-07-16] MEDS: INSULIN REGULAR 100 UNIT/ML SUBCUT SCH ×3 (05:48→18:19)
[2017-07-16] MEDS: LEVOTHYROXINE 100 MCG VIAL IV SCH (06:19)
[2017-07-16] MEDS: methylPREDNISolone SOD SUC 40 MG/1 ML VIAL IV SCH ×3 (07:37→22:59)
[2017-07-16] MEDS: ZINC OXIDE PASTE 113 GM TUBE TOP SCH (08:05)
[2017-07-16] MEDS: cefTRIAXone 1,000 MG in SYRINGE 1 EACH IV SCH (08:05)
[2017-07-16 08:31] LABS: ABG Base Excess 2.3 MMOL/L (-2.5-2.5); ABG HCO3 26.4 MMOL/L (20-26); ABG PCO2 47.6 MM HG (35-48); ABG PH 7.381 (7.35-7.45); ABG PO2 83.9 MM HG (80-95); ABG TCO2 24.5 MMOL/L (23-27)
[2017-07-16 10:17] LABS: ABG HCO3 25.3 MMOL/L (20-26); ABG Oxygen Saturation 97.8 % (95-100); ABG PCO2 45.8 MM HG (35-48); ABG PH 7.373 (7.35-7.45); ABG PO2 96.1 MM HG (80-95); ABG TCO2 23.5 MMOL/L (23-27)
[2017-07-16] MEDS ORDERED: ALBUTEROL/IPRATROPIUM 3 ML NEB RESP TX PRN (10:33)
[2017-07-16] MEDS: ALBUTEROL/IPRATROPIUM 3 ML NEB RESP TX SCH ×2 (13:46→20:35)
[2017-07-16] MEDS: AMINOPHYLLINE 500 MG in SODIUM CHLORIDE 0.9% 480 ML IV SCH (15:21)
[2017-07-16] MEDS: ENOXAPARIN 120 MG/0.8 ML SYRINGE SUBCUT SCH (15:23)
[2017-07-16] MEDS: PANTOPRAZOLE 40 MG VIAL IV SCH (18:20)
[2017-07-17] MEDS: ALBUTEROL/IPRATROPIUM 3 ML NEB RESP TX SCH ×3 (01:44→12:10)
[2017-07-17] MEDS: ZINC OXIDE PASTE 113 GM TUBE TOP SCH ×2 (03:33→08:26)
[2017-07-17] MEDS: INSULIN REGULAR 100 UNIT/ML SUBCUT SCH (03:33)
[2017-07-17 03:46] LABS: ABG Base Excess 1.6 MMOL/L (-2.5-2.5); ABG HCO3 25.8 MMOL/L (20-26); ABG Oxygen Saturation 97.4 % (95-100); ABG PCO2 45.8 MM HG (35-48); ABG PH 7.382 (7.35-7.45); ABG PO2 85.6 MM HG (80-95); ABG TCO2 23.8 MMOL/L (23-27)
[2017-07-17] MEDS: ENOXAPARIN 120 MG/0.8 ML SYRINGE SUBCUT SCH (04:51)
[2017-07-17 05:54] LABS: Basophils % 0.1 % (0.0-0.8); Eosinophils % 0.2 % (0.00-10.9); Hematocrit 41.7 VOL% (35.7-47.0); Hemoglobin 13.9 GM/DL (12.0-16.0); Lymphocytes # 0.2 10*3/uL (1.4-4.0); Lymphocytes % 1.7 % (21.3-54.2); Mean Corpuscular HGB Conc 33.3 GM/DL (32-36); Mean Corpuscular Hemoglobin 32 PG (27-34); Mean Corpuscular Volume 95.4 FL (87-102); Mean Platelet Volume 12.4 FL (9.6-12.0); Monocytes # 0.3 10*3/uL (0.11-0.8); Monocytes % 2.9 % (1.7-12.7); NRBC # 0.06 10*3/uL; Neutrophils # 9.4 10*3/uL (1.4-7.4); Neutrophils % 94.1 % (38.7-73.9); Platelet Count 123 T/CUMM (130-400); Red Blood Count 4.37 MC/CUMM (3.8-5.5)
[2017-07-17] MEDS: LEVOTHYROXINE 100 MCG VIAL IV SCH (06:44)
[2017-07-17 06:58] LABS: Calcium 8.9 MG/DL (8.5-10.1); Magnesium 2.3 MG/DL (1.8-2.4); Osmolality,Calculated 305.1 MOS/KG (273-304); Potassium 3.5 MMOL/L (3.5-5.1)
[2017-07-17 07:25] LABS: Phosphorous 3.6 MG/DL (2.5-4.9); Prealbumin 43.1 MG/DL (20-40)
[2017-07-17 07:36] LABS: Band Neutrophils 1 % (0-10); Lymphocytes 3 % (20-55); Segmented Neutrophils 94 % (50-85); Total Cells Counted 100
[2017-07-17 07:37] LABS: Giant Platelets Few; Hypochromasia 1+; Ovalocytes Slight; Platelet Estimate Normal
[2017-07-17] MEDS: cefTRIAXone 1,000 MG in SYRINGE 1 EACH IV SCH (08:22)
[2017-07-17] MEDS: methylPREDNISolone SOD SUC 40 MG/1 ML VIAL IV SCH (08:23)
[2017-07-17] MEDS ORDERED: valACYclovir 500 MG TABLET PO SCH (11:00)
[2017-07-17 13:24] VITALS: BP 106/81
== END 2017-07-17 14:15 | DRG 166 ==
LOC: EDBD → EDUNIT# → N.ED 13:56 → SUATTDRO 16:16 → N.EDINP 16:16 → N.ICU 19:00
PROVIDERS: ADMIT Internal Medicine; ATTEND Internal Medicine

== ENCOUNTER 2017-11-24 16:30 | Inpatient (IN) ==
[2017-11-24] MEDS ORDERED: LEVOFLOXACIN INJ 500 MG in PREMIX 1 EACH IV STA (17:05)
[2017-11-24] MEDS ORDERED: methylPREDNISolone SOD SUC 125 MG/2 ML VIAL IV STA (17:05)
[2017-11-24] MEDS ORDERED: ONDANSETRON 4 MG/2 ML VIAL IV STA (17:05)
[2017-11-24] MEDS ORDERED: FUROSEMIDE 100 MG/10 ML VIAL IV STA (17:05)
[2017-11-24] MEDS ORDERED: methylPREDNISolone SOD SUC 125 MG/2 ML VIAL ONE (17:18)
[2017-11-24] MEDS ORDERED: ALBUTEROL 2.5 MG/3 ML NEB RESP TX SCH (17:30)
[2017-11-24 17:59] LABS: Basophils % 0.3 % (0.0-0.8); Eosinophils % 0.2 % (0.00-10.9); Hematocrit 40.4 VOL% (35.7-47.0); Hemoglobin 12.7 GM/DL (12.0-16.0); Immature Granulocytes % 1.1 %; Immature Granulocytes Absolute 0.12 #; Lymphocytes # 0.8 10*3/uL (1.4-4.0); Lymphocytes % 7.2 % (21.3-54.2); Mean Corpuscular HGB Conc 31.4 GM/DL (32-36); Mean Corpuscular Hemoglobin 33 PG (27-34); Mean Corpuscular Volume 104.1 FL (87-102); Mean Platelet Volume 9.5 FL (9.6-12.0); Monocytes # 0.7 10*3/uL (0.11-0.8); Monocytes % 6.6 % (1.7-12.7); NRBC # 0.03 10*3/uL; Neutrophils # 9.1 10*3/uL (1.4-7.4); Neutrophils % 84.6 % (38.7-73.9); Platelet Count 195 T/CUMM (130-400); Red Blood Count 3.88 MC/CUMM (3.8-5.5); Red Cell Distribution Width 13.7 % (9.3-17.3); White Blood Count 10.8 T/CUMM (4-12)
[2017-11-24 18:00] LABS: ABG Base Excess 14.8 MMOL/L (-2.5-2.5); ABG HCO3 38.8 MMOL/L (20-26); ABG Oxygen Saturation 98.2 % (95-100); ABG PH 7.387 (7.35-7.45); ABG TCO2 38.7 MMOL/L (23-27)
[2017-11-24] MEDS ORDERED: LEVOFLOXACIN INJ 100 ML IV ONE (18:05)
[2017-11-24 18:11] LABS: ABG PCO2 73.3 MM HG (35-48)
[2017-11-24] MEDS ORDERED: FUROSEMIDE 100 MG/10 ML VIAL ONE (18:20)
[2017-11-24 18:23] LABS: Albumin 3.3 G/DL (3.4-5.0); Bilirubin,Total 0.4 MG/DL (0.2-1.0); Osmolality,Calculated 277.7 MOS/KG (273-304); Potassium 3.6 MMOL/L (3.5-5.1); Total Protein 7.3 G/DL (6.4-8.3)
[2017-11-24 18:24] LABS: Troponin I Only 0.051 NG/ML (0.00-0.045)
[2017-11-24 19:03] LABS: Apearance,Urine CLEAR (Clear); Bilirubin,Urine Negative (Negative); Blood, Urine Small mg/dL (Negative); Glucose,Urine (UA) Negative (Negative); Ketones,Urine Negative (Negative); Nitrite,Urine Negative (Negative); Protein,Urine Negative; RBC,Urine 1 /HPF (0-4); Squamous Epithelial Cell,Urine Occasional /HPF (0-10); Urine Color Straw (Yellow); Urine Specific Gravity 1.003 (1.001-1.035); Urine Urobilinogen < 2.0 EU/DL (0.2-1.0); WBC,Urine <1 /HPF (0-6)
[2017-11-24 19:15] LABS: PT Patient Result 10.5 SECS
[2017-11-24 21:01] LABS: ABG Base Excess 14.6 MMOL/L (-2.5-2.5); ABG HCO3 38.3 MMOL/L (20-26); ABG Oxygen Saturation 88.3 % (95-100); ABG PCO2 64.4 MM HG (35-48); ABG PH 7.428 (7.35-7.45); ABG PO2 52.8 MM HG (80-95); ABG TCO2 37.2 MMOL/L (23-27)
[2017-11-24] MEDS ORDERED: ACETAMINOPH PO PRN (21:10)
[2017-11-24] MEDS ORDERED: GUAIFENESIN PO PRN (21:10)
[2017-11-24] MEDS ORDERED: PSEUDOEPHEDRNE HCL PO PRN (21:10)
[2017-11-24] MEDS ORDERED: TRAMADOL PO PRN (21:10)
[2017-11-24] MEDS ORDERED: ENOXAPARIN 40 MG/0.4 ML SYRINGE SUBCUT SCH (21:30)
[2017-11-24] MEDS: ALBUTEROL/IPRATROPIUM 3 ML NEB RESP TX SCH (23:14)
[2017-11-25] MEDS: methylPREDNISolone SOD SUC 40 MG/1 ML VIAL IV SCH ×3 (00:23→16:56)
[2017-11-25] MEDS: ZAFIRLUKAST 20 MG TABLET PO SCH ×3 (00:24→21:51)
[2017-11-25] MEDS: ALBUTEROL/IPRATROPIUM 3 ML NEB RESP TX SCH ×6 (03:20→23:27)
[2017-11-25 05:17] LABS: Basophils % 0.1 % (0.0-0.8); Hematocrit 39.6 VOL% (35.7-47.0); Hemoglobin 12.1 GM/DL (12.0-16.0); Immature Granulocytes % 0.8 %; Immature Granulocytes Absolute 0.07 #; Lymphocytes # 0.4 10*3/uL (1.4-4.0); Lymphocytes % 4.2 % (21.3-54.2); Mean Corpuscular HGB Conc 30.6 GM/DL (32-36); Mean Corpuscular Hemoglobin 32 PG (27-34); Mean Corpuscular Volume 105.3 FL (87-102); Mean Platelet Volume 9.7 FL (9.6-12.0); Monocytes # 0.1 10*3/uL (0.11-0.8); Neutrophils # 7.8 10*3/uL (1.4-7.4); Neutrophils % 93.9 % (38.7-73.9); Platelet Count 189 T/CUMM (130-400); Red Blood Count 3.76 MC/CUMM (3.8-5.5); Red Cell Distribution Width 13.6 % (9.3-17.3); White Blood Count 8.4 T/CUMM (4-12)
[2017-11-25 05:39] LABS: Band Neutrophils 2 % (0-10); Lymphocytes 4 % (20-55); Macrocytosis 3+; Nucleated Red Blood Cells 1 (0-5); Platelet Estimate Normal; Segmented Neutrophils 94 % (50-85); Total Cells Counted 100
[2017-11-25 06:02] LABS: Calcium 8.6 MG/DL (8.5-10.1); Osmolality,Calculated 284.4 MOS/KG (273-304); Potassium 3.9 MMOL/L (3.5-5.1); Risk Ratio 2.94; Thyroid Stimulating Hormone 0.105 uIU/ml (0.358-3.74); VLDL CHOLESTEROL 11.8 MG/DL
[2017-11-25] MEDS: LEVOTHYROXINE 100 MCG TABLET PO SCH (06:43)
[2017-11-25] MEDS ORDERED: amLODIPine 5 MG TABLET PO SCH (09:00)
[2017-11-25] MEDS: FUROSEMIDE 40 MG/4 ML VIAL IV SCH ×2 (09:27→21:51)
[2017-11-25] MEDS: MAGNESIUM CHLORIDE 64 MG TABLET PO SCH ×2 (14:52→21:51)
[2017-11-25] MEDS: PANTOPRAZOLE 40 MG TABLET PO SCH (14:52)
[2017-11-25] MEDS: ALLOPURINOL 100 MG TABLET PO SCH (14:52)
[2017-11-25] MEDS: POTASSIUM CHLORIDE 20 MEQ TABLET PO SCH ×3 (14:53→21:51)
[2017-11-25] MEDS: LEVOFLOXACIN INJ 750 MG in PREMIX 1 EACH IV SCH (14:54)
[2017-11-25] MEDS ORDERED: FUROSEMIDE 20 MG/2 ML VIAL ONE (21:19)
[2017-11-25] MEDS: APIXABAN 5 MG TABLET PO SCH (21:51)
[2017-11-26] MEDS: methylPREDNISolone SOD SUC 40 MG/1 ML VIAL IV SCH ×3 (02:04→17:31)
[2017-11-26] MEDS: ALBUTEROL/IPRATROPIUM 3 ML NEB RESP TX SCH ×6 (03:15→23:52)
[2017-11-26 06:18] LABS: Basophils % 0.1 % (0.0-0.8); Hemoglobin 12.1 GM/DL (12.0-16.0); Immature Granulocytes % 0.9 %; Lymphocytes # 0.4 10*3/uL (1.4-4.0); Lymphocytes % 3.2 % (21.3-54.2); Mean Corpuscular Hemoglobin 32 PG (27-34); Mean Platelet Volume 9.5 FL (9.6-12.0); Monocytes # 0.4 10*3/uL (0.11-0.8); Monocytes % 3.5 % (1.7-12.7); NRBC # 0.02 10*3/uL; Neutrophils # 10.2 10*3/uL (1.4-7.4); Neutrophils % 92.3 % (38.7-73.9); Platelet Count 199 T/CUMM (130-400); Red Blood Count 3.75 MC/CUMM (3.8-5.5)
[2017-11-26 06:41] LABS: Giant Platelets Few; Hypochromasia 1+; Lymphocytes 3 % (20-55); Macrocytosis Slight; Ovalocytes Slight; Platelet Estimate Normal; Segmented Neutrophils 96 % (50-85); Total Cells Counted 100
[2017-11-26] MEDS: LEVOTHYROXINE 100 MCG TABLET PO SCH (06:42)
[2017-11-26 06:49] LABS: Calcium 9.2 MG/DL (8.5-10.1); Osmolality,Calculated 284.4 MOS/KG (273-304); Potassium 4.3 MMOL/L (3.5-5.1)
[2017-11-26] MEDS ORDERED: TORSEMIDE 20 MG TABLET PO SCH (09:00)
[2017-11-26] MEDS: PANTOPRAZOLE 40 MG TABLET PO SCH (09:05)
[2017-11-26] MEDS: APIXABAN 5 MG TABLET PO SCH ×2 (09:05→22:28)
[2017-11-26] MEDS: ZAFIRLUKAST 20 MG TABLET PO SCH ×2 (09:05→22:31)
[2017-11-26] MEDS: POTASSIUM CHLORIDE 20 MEQ TABLET PO SCH ×3 (09:05→22:29)
[2017-11-26] MEDS: MAGNESIUM CHLORIDE 64 MG TABLET PO SCH ×2 (09:05→22:28)
[2017-11-26] MEDS: ALLOPURINOL 100 MG TABLET PO SCH (09:05)
[2017-11-26] MEDS: LISINOPRIL/HCTZ 20-25 MG TABLET PO SCH (09:08)
[2017-11-26] MEDS: FUROSEMIDE 40 MG/4 ML VIAL IV SCH ×2 (09:10→22:29)
[2017-11-26] MEDS ORDERED: AMINOPHYLLINE 250 MG in SODIUM CHLORIDE 0.9% 100 ML IV ONE (10:33)
[2017-11-26 11:03] LABS: Folate 16.9 NG/ML (5.4-24.0)
[2017-11-26] MEDS: LEVOFLOXACIN INJ 750 MG in PREMIX 1 EACH IV SCH (11:20)
[2017-11-26] MEDS: ALBUTEROL 0.4 MG/ML 30 ML/BOTTLE PO SCH ×3 (11:26→22:29)
[2017-11-26] MEDS: THEOPHYLLINE ER 300 MG TABLET PO SCH (17:30)
[2017-11-26] MEDS: hydrALAZINE 25 MG TABLET PO SCH ×2 (17:30→22:29)
[2017-11-27] MEDS: methylPREDNISolone SOD SUC 40 MG/1 ML VIAL IV SCH ×3 (03:11→16:08)
[2017-11-27] MEDS: ALBUTEROL/IPRATROPIUM 3 ML NEB RESP TX SCH ×5 (03:16→19:53)
[2017-11-27 05:33] LABS: Basophils % 0.1 % (0.0-0.8); Hematocrit 36.9 VOL% (35.7-47.0); Hemoglobin 11.9 GM/DL (12.0-16.0); Immature Granulocytes % 0.9 %; Immature Granulocytes Absolute 0.09 #; Lymphocytes # 0.5 10*3/uL (1.4-4.0); Lymphocytes % 4.6 % (21.3-54.2); Mean Corpuscular HGB Conc 32.2 GM/DL (32-36); Mean Corpuscular Hemoglobin 33 PG (27-34); Mean Corpuscular Volume 101.1 FL (87-102); Monocytes # 0.7 10*3/uL (0.11-0.8); Monocytes % 7.5 % (1.7-12.7); NRBC # 0.02 10*3/uL; Neutrophils # 8.4 10*3/uL (1.4-7.4); Neutrophils % 86.9 % (38.7-73.9); Platelet Count 205 T/CUMM (130-400); Red Blood Count 3.65 MC/CUMM (3.8-5.5); White Blood Count 9.7 T/CUMM (4-12)
[2017-11-27 06:04] LABS: Giant Platelets Few; Hypochromasia 1+; Lymphocytes 1 % (20-55); Macrocytosis Slight; Nucleated Red Blood Cells 1 (0-5); Ovalocytes Slight; Platelet Estimate Adequate; Segmented Neutrophils 91 % (50-85); Total Cells Counted 100
[2017-11-27 06:14] LABS: Calcium 9.1 MG/DL (8.5-10.1); Osmolality,Calculated 286.3 MOS/KG (273-304); Potassium 3.3 MMOL/L (3.5-5.1)
[2017-11-27] MEDS: ALBUTEROL 0.4 MG/ML 30 ML/BOTTLE PO SCH ×3 (06:35→21:11)
[2017-11-27] MEDS: LEVOTHYROXINE 100 MCG TABLET PO SCH (06:35)
[2017-11-27] MEDS ORDERED: POTASSIUM CHLORIDE 20 MEQ TABLET PO ONE (07:59)
[2017-11-27] MEDS: PANTOPRAZOLE 40 MG TABLET PO SCH (08:21)
[2017-11-27] MEDS: MAGNESIUM CHLORIDE 64 MG TABLET PO SCH ×2 (08:21→21:11)
[2017-11-27] MEDS: LISINOPRIL/HCTZ 20-25 MG TABLET PO SCH (08:21)
[2017-11-27] MEDS: APIXABAN 5 MG TABLET PO SCH ×2 (08:21→21:11)
[2017-11-27] MEDS: POTASSIUM CHLORIDE 20 MEQ TABLET PO SCH ×3 (08:21→21:11)
[2017-11-27] MEDS: hydrALAZINE 25 MG TABLET PO SCH ×3 (08:21→21:11)
[2017-11-27] MEDS: THEOPHYLLINE ER 300 MG TABLET PO SCH ×2 (08:22→18:52)
[2017-11-27] MEDS: ALLOPURINOL 100 MG TABLET PO SCH (08:22)
[2017-11-27] MEDS: FUROSEMIDE 40 MG/4 ML VIAL IV SCH ×2 (08:27→16:11)
[2017-11-27 10:10] LABS: ABG Base Excess 16.7 MMOL/L (-2.5-2.5); ABG HCO3 42.1 MMOL/L (20-26); ABG Oxygen Saturation 94.6 % (95-100); ABG PCO2 52.9 MM HG (35-48); ABG PH 7.519 (7.35-7.45); ABG PO2 70.2 MM HG (80-95); ABG TCO2 43.8 MMOL/L (23-27)
[2017-11-27] MEDS: ZAFIRLUKAST 20 MG TABLET PO SCH ×2 (10:24→21:11)
[2017-11-27] MEDS ORDERED: POTASSIUM CHLORIDE 20 MEQ TABLET PO PRN (10:44)
[2017-11-27] MEDS: LEVOFLOXACIN INJ 750 MG in PREMIX 1 EACH IV SCH (11:52)
[2017-11-27] MEDS ORDERED: APIXABAN 5 MG TABLET PO ONE (12:03)
[2017-11-28] MEDS: ALBUTEROL/IPRATROPIUM 3 ML NEB RESP TX SCH ×4 (00:33→10:39)
[2017-11-28] MEDS: FUROSEMIDE 40 MG/4 ML VIAL IV SCH ×2 (01:58→08:15)
[2017-11-28] MEDS: methylPREDNISolone SOD SUC 40 MG/1 ML VIAL IV SCH ×2 (02:01→08:13)
[2017-11-28 06:24] LABS: Basophils % 0.1 % (0.0-0.8); Hematocrit 38.3 VOL% (35.7-47.0); Hemoglobin 12.2 GM/DL (12.0-16.0); Immature Granulocytes % 1.2 %; Immature Granulocytes Absolute 0.11 #; Lymphocytes # 0.3 10*3/uL (1.4-4.0); Lymphocytes % 2.8 % (21.3-54.2); Mean Corpuscular HGB Conc 31.9 GM/DL (32-36); Mean Corpuscular Hemoglobin 32 PG (27-34); Mean Corpuscular Volume 101.3 FL (87-102); Mean Platelet Volume 9.8 FL (9.6-12.0); Monocytes # 0.4 10*3/uL (0.11-0.8); Monocytes % 4.6 % (1.7-12.7); NRBC # 0.02 10*3/uL; Neutrophils # 8.6 10*3/uL (1.4-7.4); Neutrophils % 91.3 % (38.7-73.9); Platelet Count 198 T/CUMM (130-400); Red Blood Count 3.78 MC/CUMM (3.8-5.5); Red Cell Distribution Width 13.9 % (9.3-17.3); White Blood Count 9.4 T/CUMM (4-12)
[2017-11-28 06:47] LABS: Hypochromasia 1+; Lymphocytes 2 % (20-55); Platelet Estimate Normal; Segmented Neutrophils 96 % (50-85); Total Cells Counted 100
[2017-11-28 06:48] LABS: Giant Platelets Few; Macrocytosis Slight
[2017-11-28 06:53] LABS: Calcium 9.2 MG/DL (8.5-10.1); Osmolality,Calculated 288.3 MOS/KG (273-304); Potassium 3.4 MMOL/L (3.5-5.1)
[2017-11-28] MEDS: ALBUTEROL 0.4 MG/ML 30 ML/BOTTLE PO SCH ×2 (06:58→16:01)
[2017-11-28] MEDS: LEVOTHYROXINE 100 MCG TABLET PO SCH (06:59)
[2017-11-28] MEDS: MAGNESIUM CHLORIDE 64 MG TABLET PO SCH (08:11)
[2017-11-28] MEDS: THEOPHYLLINE ER 300 MG TABLET PO SCH ×2 (08:12→12:11)
[2017-11-28] MEDS: LISINOPRIL/HCTZ 20-25 MG TABLET PO SCH (08:12)
[2017-11-28] MEDS: APIXABAN 5 MG TABLET PO SCH (08:12)
[2017-11-28] MEDS: PANTOPRAZOLE 40 MG TABLET PO SCH (08:12)
[2017-11-28] MEDS: hydrALAZINE 25 MG TABLET PO SCH ×2 (08:13→16:01)
[2017-11-28] MEDS: ALLOPURINOL 100 MG TABLET PO SCH (08:13)
[2017-11-28] MEDS: POTASSIUM CHLORIDE 20 MEQ TABLET PO SCH ×2 (08:20→16:01)
[2017-11-28] MEDS: ZAFIRLUKAST 20 MG TABLET PO SCH (10:20)
[2017-11-28] MEDS ORDERED: predniSONE 20 MG TABLET PO SCH (11:00)
[2017-11-28] MEDS: LEVOFLOXACIN INJ 750 MG in PREMIX 1 EACH IV SCH (11:12)
[2017-11-28 12:18] VITALS: BP 106/53
[2017-11-28] MEDS ORDERED: TORSEMIDE 20 MG TABLET PO SCH (21:00)
[2017-12-05] MEDS ORDERED: APIXABAN 5 MG TABLET PO SCH (09:00)
== END 2017-11-28 15:34 | disposition home health service (06) | DRG 291 ==
LOC: EDBD → EDUNIT# → N.ED 16:30 → N.EDINP 21:05 → SUATTDRO 21:05 → N.TELEN 22:04
PROVIDERS: ADMIT Family Medicine; ATTEND Internal Medicine

== ENCOUNTER 2018-02-27 12:20 | Inpatient (IN) ==
[2018-02-27] MEDS ORDERED: FUROSEMIDE 100 MG/10 ML VIAL IV STA (12:40)
[2018-02-27 13:37] LABS: Basophils % 0.4 % (0.0-0.8); Eosinophils # 0.1 10*3/uL (0.0-0.87); Eosinophils % 0.6 % (0.00-10.9); Hematocrit 46.9 VOL% (35.7-47.0); Hemoglobin 15.1 GM/DL (12.0-16.0); Immature Granulocytes Absolute 0.09 #; Lymphocytes # 0.5 10*3/uL (1.4-4.0); Lymphocytes % 5.7 % (21.3-54.2); Mean Corpuscular HGB Conc 32.2 GM/DL (32-36); Mean Corpuscular Hemoglobin 32 PG (27-34); Mean Corpuscular Volume 100.4 FL (87-102); Mean Platelet Volume 9.9 FL (9.6-12.0); Monocytes # 0.4 10*3/uL (0.11-0.8); Monocytes % 4.4 % (1.7-12.7); NRBC # 0.03 10*3/uL; Neutrophils % 87.9 % (38.7-73.9); Platelet Count 199 T/CUMM (130-400); Red Blood Count 4.67 MC/CUMM (3.8-5.5); Red Cell Distribution Width 14.7 % (9.3-17.3); White Blood Count 9.1 T/CUMM (4-12)
[2018-02-27 13:46] LABS: PT Patient Result 10.8 SECS
[2018-02-27] MEDS ORDERED: hydrALAZINE 20 MG/1 ML VIAL IV STA (13:46)
[2018-02-27] MEDS ORDERED: NITROGLYCERIN 2% OINT 1 INCH/GM PACK TOP STA (13:46)
[2018-02-27 14:06] LABS: Albumin 3.4 G/DL (3.4-5.0); Calcium 9.5 MG/DL (8.5-10.1); Osmolality,Calculated 280.5 MOS/KG (273-304); Potassium 3.4 MMOL/L (3.5-5.1); Total Protein 7.4 G/DL (6.4-8.3)
[2018-02-27 14:08] LABS: Troponin I Only 0.079 NG/ML (0.00-0.045)
[2018-02-27] MEDS ORDERED: ONDANSETRON 4 MG/2 ML VIAL IV PRN (15:24)
[2018-02-27] MEDS ORDERED: hydrALAZINE 20 MG/1 ML VIAL IV PRN (15:32)
[2018-02-27] MEDS ORDERED: ALBUTEROL 2.5 MG/3 ML NEB RESP TX PRN (15:42)
[2018-02-27] MEDS: FUROSEMIDE 40 MG/4 ML VIAL IV SCH (18:34)
[2018-02-27] MEDS: ALBUTEROL/IPRATROPIUM 3 ML NEB RESP TX SCH (19:54)
[2018-02-27] MEDS ORDERED: NIFEdipine 10 MG CAPSULE PO PRN (20:40)
[2018-02-27] MEDS: MAGNESIUM CHLORIDE 64 MG TABLET PO SCH (21:26)
[2018-02-27] MEDS: MULTIVITAMIN (BEROCCA) TABLET PO SCH (21:26)
[2018-02-27] MEDS: ZAFIRLUKAST 20 MG TABLET PO SCH (21:26)
[2018-02-27] MEDS: APIXABAN 5 MG TABLET PO SCH (21:26)
[2018-02-27] MEDS: POTASSIUM CHLORIDE 20 MEQ TABLET PO SCH (21:26)
[2018-02-28] MEDS: ALBUTEROL/IPRATROPIUM 3 ML NEB RESP TX SCH ×4 (00:08→19:23)
[2018-02-28 01:09] LABS: Basophils % 0.4 % (0.0-0.8); Eosinophils # 0.2 10*3/uL (0.0-0.87); Eosinophils % 2.1 % (0.00-10.9); Hematocrit 43.7 VOL% (35.7-47.0); Hemoglobin 13.9 GM/DL (12.0-16.0); Immature Granulocytes % 0.8 %; Immature Granulocytes Absolute 0.07 #; Lymphocytes # 1.4 10*3/uL (1.4-4.0); Lymphocytes % 15.5 % (21.3-54.2); Mean Corpuscular HGB Conc 31.8 GM/DL (32-36); Mean Corpuscular Hemoglobin 33 PG (27-34); Mean Corpuscular Volume 103.1 FL (87-102); Mean Platelet Volume 10.1 FL (9.6-12.0); Monocytes # 0.8 10*3/uL (0.11-0.8); NRBC # 0.03 10*3/uL; Neutrophils # 6.7 10*3/uL (1.4-7.4); Neutrophils % 72.2 % (38.7-73.9); Platelet Count 193 T/CUMM (130-400); Red Blood Count 4.24 MC/CUMM (3.8-5.5); Red Cell Distribution Width 14.7 % (9.3-17.3); White Blood Count 9.3 T/CUMM (4-12)
[2018-02-28 01:37] LABS: Calcium 8.8 MG/DL (8.5-10.1); Potassium 3.3 MMOL/L (3.5-5.1); Thyroid Stimulating Hormone 1.35 uIU/ml (0.358-3.74)
[2018-02-28] MEDS: guaiFENesin 200 MG/10 ML UDCUP PO PRN ×2 (05:48→21:16)
[2018-02-28] MEDS: LEVOTHYROXINE 100 MCG TABLET PO SCH (05:48)
[2018-02-28] MEDS: CAPSAICIN 0.025% CREAM 60 GM TUBE TOP PRN ×2 (05:49→21:15)
[2018-02-28] MEDS: THEOPHYLLINE ER 300 MG TABLET PO SCH (08:31)
[2018-02-28] MEDS: MAGNESIUM CHLORIDE 64 MG TABLET PO SCH ×2 (08:31→21:15)
[2018-02-28] MEDS: FUROSEMIDE 40 MG/4 ML VIAL IV SCH ×2 (08:31→15:13)
[2018-02-28] MEDS: PANTOPRAZOLE 40 MG TABLET PO SCH (08:32)
[2018-02-28] MEDS: predniSONE 10 MG TABLET PO SCH (08:32)
[2018-02-28] MEDS: POTASSIUM CHLORIDE 20 MEQ TABLET PO SCH ×3 (08:32→21:14)
[2018-02-28] MEDS: ZAFIRLUKAST 20 MG TABLET PO SCH ×2 (08:32→21:15)
[2018-02-28] MEDS: APIXABAN 5 MG TABLET PO SCH ×2 (08:32→21:15)
[2018-02-28] MEDS: ALLOPURINOL 300 MG TABLET PO SCH (08:32)
[2018-02-28] MEDS: NYSTATIN POWDER 15 GM BOTTLE TOP SCH ×2 (08:34→21:15)
[2018-02-28] MEDS: CLINDAMYCIN INJ 300 MG in PREMIX 1 EACH IV SCH ×2 (11:36→18:11)
[2018-02-28] MEDS: LEVOFLOXACIN INJ 500 MG in PREMIX 1 EACH IV SCH (13:07)
[2018-02-28] MEDS: MULTIVITAMIN (BEROCCA) TABLET PO SCH (21:15)
[2018-02-28 23:19] LABS: Collection Time,Urine 24 HOURS; Total Protein 24 Hr Ur Result 390 MG/24HR (0-149.1); Total Volume,Urine 1000 ML (400-2000)
[2018-03-01] MEDS: ALBUTEROL/IPRATROPIUM 3 ML NEB RESP TX SCH ×5 (00:35→20:33)
[2018-03-01] MEDS: CLINDAMYCIN INJ 300 MG in PREMIX 1 EACH IV SCH ×3 (03:38→18:14)
[2018-03-01] MEDS: LEVOTHYROXINE 100 MCG TABLET PO SCH (05:48)
[2018-03-01 06:57] LABS: Calcium 9.3 MG/DL (8.5-10.1); Osmolality,Calculated 285.1 MOS/KG (273-304); Potassium 3.5 MMOL/L (3.5-5.1)
[2018-03-01] MEDS: FUROSEMIDE 40 MG/4 ML VIAL IV SCH ×2 (09:08→16:08)
[2018-03-01] MEDS: PANTOPRAZOLE 40 MG TABLET PO SCH (09:11)
[2018-03-01] MEDS: APIXABAN 5 MG TABLET PO SCH ×2 (09:11→20:59)
[2018-03-01] MEDS: POTASSIUM CHLORIDE 20 MEQ TABLET PO SCH ×3 (09:11→20:58)
[2018-03-01] MEDS: MAGNESIUM CHLORIDE 64 MG TABLET PO SCH ×2 (09:11→20:58)
[2018-03-01] MEDS: predniSONE 10 MG TABLET PO SCH (09:11)
[2018-03-01] MEDS: ALLOPURINOL 300 MG TABLET PO SCH (09:12)
[2018-03-01] MEDS: THEOPHYLLINE ER 300 MG TABLET PO SCH (09:12)
[2018-03-01] MEDS: NYSTATIN POWDER 15 GM BOTTLE TOP SCH ×2 (10:00→20:59)
[2018-03-01] MEDS: ZAFIRLUKAST 20 MG TABLET PO SCH ×2 (10:21→20:59)
[2018-03-01] MEDS: LEVOFLOXACIN INJ 500 MG in PREMIX 1 EACH IV SCH (11:42)
[2018-03-01] MEDS: ACETAMINOPHEN 325 MG TABLET PO PRN ×2 (13:38→22:19)
[2018-03-01] MEDS: guaiFENesin/DM ER 600-30 MG TABLET PO PRN ×2 (16:08→20:58)
[2018-03-01] MEDS: MULTIVITAMIN (BEROCCA) TABLET PO SCH (20:59)
[2018-03-01] MEDS: CAPSAICIN 0.025% CREAM 60 GM TUBE TOP PRN (21:00)
[2018-03-01] MEDS: guaiFENesin 200 MG/10 ML UDCUP PO PRN (21:58)
[2018-03-02] MEDS: ALBUTEROL/IPRATROPIUM 3 ML NEB RESP TX SCH ×4 (00:57→19:19)
[2018-03-02] MEDS: CLINDAMYCIN INJ 300 MG in PREMIX 1 EACH IV SCH ×3 (03:13→20:22)
[2018-03-02] MEDS: LEVOTHYROXINE 100 MCG TABLET PO SCH (05:30)
[2018-03-02 06:03] LABS: Calcium 8.9 MG/DL (8.5-10.1); Osmolality,Calculated 280.4 MOS/KG (273-304); Potassium 3.7 MMOL/L (3.5-5.1)
[2018-03-02 07:25] LABS: Total Protein (Chem) 6.5 G/DL (6.4-8.3)
[2018-03-02] MEDS: LEVOFLOXACIN INJ 500 MG in PREMIX 1 EACH IV SCH (09:17)
[2018-03-02] MEDS: FUROSEMIDE 40 MG/4 ML VIAL IV SCH ×2 (09:17→15:36)
[2018-03-02] MEDS: MAGNESIUM CHLORIDE 64 MG TABLET PO SCH ×2 (09:18→20:22)
[2018-03-02] MEDS: predniSONE 10 MG TABLET PO SCH (09:18)
[2018-03-02] MEDS: POTASSIUM CHLORIDE 20 MEQ TABLET PO SCH ×3 (09:18→20:22)
[2018-03-02] MEDS: APIXABAN 5 MG TABLET PO SCH ×2 (09:18→20:22)
[2018-03-02] MEDS: PANTOPRAZOLE 40 MG TABLET PO SCH (09:18)
[2018-03-02] MEDS: ALLOPURINOL 300 MG TABLET PO SCH (09:18)
[2018-03-02] MEDS: THEOPHYLLINE ER 300 MG TABLET PO SCH (09:18)
[2018-03-02] MEDS: ZAFIRLUKAST 20 MG TABLET PO SCH ×3 (09:20→20:22)
[2018-03-02 09:21] LABS: Albumin (SPE) 3.9 G/DL (3.2-5.3); Albumin (SPE) Rel % 60.9 %; Alpha 1 (SPE) 0.3 G/DL (0.1-0.4); Alpha 2 (SPE) 0.9 G/DL (0.4-1.0); Alpha 2 (SPE) Rel % 13.4 %; Beta (SPE) 0.8 G/DL (0.5-1.1); Beta (SPE) Rel % 12.4 %; Gamma (SPE) 0.6 G/DL (0.7-1.7); Gamma (SPE) Rel % 9.3 %
[2018-03-02] MEDS: NYSTATIN POWDER 15 GM BOTTLE TOP SCH ×2 (09:37→20:23)
[2018-03-02] MEDS: guaiFENesin 200 MG/10 ML UDCUP PO PRN ×2 (14:36→21:41)
[2018-03-02] MEDS ORDERED: MELATONIN 3 MG TABLET PO PRN (16:28)
[2018-03-02] MEDS: MULTIVITAMIN (BEROCCA) TABLET PO SCH (20:22)
[2018-03-02] MEDS: guaiFENesin/DM ER 600-30 MG TABLET PO PRN (21:45)
[2018-03-03] MEDS: ALBUTEROL/IPRATROPIUM 3 ML NEB RESP TX SCH ×4 (00:42→19:58)
[2018-03-03] MEDS: LEVOTHYROXINE 100 MCG TABLET PO SCH (05:37)
[2018-03-03 05:47] LABS: Basophils % 0.5 % (0.0-0.8); Eosinophils # 0.3 10*3/uL (0.0-0.87); Eosinophils % 3.6 % (0.00-10.9); Hematocrit 41.6 VOL% (35.7-47.0); Immature Granulocytes % 1.3 %; Lymphocytes # 1.1 10*3/uL (1.4-4.0); Lymphocytes % 14.2 % (21.3-54.2); Mean Corpuscular HGB Conc 31.3 GM/DL (32-36); Mean Corpuscular Hemoglobin 32 PG (27-34); Mean Corpuscular Volume 103.7 FL (87-102); Mean Platelet Volume 10.2 FL (9.6-12.0); Monocytes # 0.9 10*3/uL (0.11-0.8); Neutrophils # 5.4 10*3/uL (1.4-7.4); Neutrophils % 69.4 % (38.7-73.9); Platelet Count 166 T/CUMM (130-400); Red Blood Count 4.01 MC/CUMM (3.8-5.5); Red Cell Distribution Width 14.6 % (9.3-17.3); White Blood Count 7.8 T/CUMM (4-12)
[2018-03-03] MEDS: CLINDAMYCIN INJ 300 MG in PREMIX 1 EACH IV SCH ×3 (06:15→22:08)
[2018-03-03 06:22] LABS: Calcium 9.3 MG/DL (8.5-10.1); Osmolality,Calculated 276.5 MOS/KG (273-304); Potassium 3.7 MMOL/L (3.5-5.1)
[2018-03-03] MEDS: NYSTATIN POWDER 15 GM BOTTLE TOP SCH ×2 (08:43→22:11)
[2018-03-03] MEDS: FUROSEMIDE 40 MG/4 ML VIAL IV SCH (08:55)
[2018-03-03] MEDS: predniSONE 10 MG TABLET PO SCH ×2 (09:00→14:40)
[2018-03-03] MEDS: ALLOPURINOL 300 MG TABLET PO SCH ×2 (09:00→14:40)
[2018-03-03] MEDS: MAGNESIUM CHLORIDE 64 MG TABLET PO SCH ×3 (09:00→22:08)
[2018-03-03] MEDS: POTASSIUM CHLORIDE 20 MEQ TABLET PO SCH ×3 (09:00→22:08)
[2018-03-03] MEDS: THEOPHYLLINE ER 300 MG TABLET PO SCH ×2 (09:00→14:41)
[2018-03-03] MEDS: APIXABAN 5 MG TABLET PO SCH ×3 (09:00→22:08)
[2018-03-03] MEDS: PANTOPRAZOLE 40 MG TABLET PO SCH ×2 (09:00→14:41)
[2018-03-03] MEDS: ZAFIRLUKAST 20 MG TABLET PO SCH ×3 (09:00→22:10)
[2018-03-03] MEDS: LEVOFLOXACIN INJ 500 MG in PREMIX 1 EACH IV SCH (10:59)
[2018-03-03] MEDS: TORSEMIDE 20 MG TABLET PO SCH (16:59)
[2018-03-03] MEDS ORDERED: ACETAMINOPHEN/diphenhydrAMINE 500-25 MG TABLET PO ONE (21:43)
[2018-03-03] MEDS: MULTIVITAMIN (BEROCCA) TABLET PO SCH (22:08)
[2018-03-04] MEDS: ALBUTEROL/IPRATROPIUM 3 ML NEB RESP TX SCH ×4 (00:55→19:24)
[2018-03-04] MEDS: CLINDAMYCIN INJ 300 MG in PREMIX 1 EACH IV SCH ×3 (04:48→21:08)
[2018-03-04 05:15] LABS: Osmolality,Calculated 279.4 MOS/KG (273-304); Potassium 3.8 MMOL/L (3.5-5.1)
[2018-03-04] MEDS: guaiFENesin 200 MG/10 ML UDCUP PO PRN ×2 (05:21→21:07)
[2018-03-04] MEDS: LEVOTHYROXINE 100 MCG TABLET PO SCH (05:43)
[2018-03-04] MEDS: NYSTATIN POWDER 15 GM BOTTLE TOP SCH ×2 (09:23→21:08)
[2018-03-04] MEDS: TORSEMIDE 20 MG TABLET PO SCH ×2 (09:46→16:12)
[2018-03-04] MEDS: ZAFIRLUKAST 20 MG TABLET PO SCH ×2 (09:47→21:06)
[2018-03-04] MEDS: APIXABAN 5 MG TABLET PO SCH ×2 (09:47→21:07)
[2018-03-04] MEDS: MAGNESIUM CHLORIDE 64 MG TABLET PO SCH ×2 (09:47→21:07)
[2018-03-04] MEDS: PANTOPRAZOLE 40 MG TABLET PO SCH (09:48)
[2018-03-04] MEDS: THEOPHYLLINE ER 300 MG TABLET PO SCH (09:48)
[2018-03-04] MEDS: POTASSIUM CHLORIDE 20 MEQ TABLET PO SCH ×3 (09:48→21:06)
[2018-03-04] MEDS: predniSONE 10 MG TABLET PO SCH (09:48)
[2018-03-04] MEDS: LEVOFLOXACIN INJ 500 MG in PREMIX 1 EACH IV SCH (09:50)
[2018-03-04] MEDS: ALLOPURINOL 300 MG TABLET PO SCH (09:50)
[2018-03-04] MEDS: ACETAMINOPHEN 325 MG TABLET PO PRN ×2 (14:40→21:07)
[2018-03-04] MEDS: MULTIVITAMIN (BEROCCA) TABLET PO SCH (21:06)
[2018-03-05] MEDS: ALBUTEROL/IPRATROPIUM 3 ML NEB RESP TX SCH ×4 (00:44→19:02)
[2018-03-05] MEDS: CLINDAMYCIN INJ 300 MG in PREMIX 1 EACH IV SCH ×3 (05:04→21:05)
[2018-03-05] MEDS: LEVOTHYROXINE 100 MCG TABLET PO SCH (05:40)
[2018-03-05] MEDS: LEVOFLOXACIN INJ 500 MG in PREMIX 1 EACH IV SCH (08:10)
[2018-03-05] MEDS: TORSEMIDE 20 MG TABLET PO SCH ×2 (08:12→15:51)
[2018-03-05] MEDS: MAGNESIUM CHLORIDE 64 MG TABLET PO SCH ×2 (08:15→20:59)
[2018-03-05] MEDS: ALLOPURINOL 300 MG TABLET PO SCH (08:15)
[2018-03-05] MEDS: THEOPHYLLINE ER 300 MG TABLET PO SCH (08:15)
[2018-03-05] MEDS: PANTOPRAZOLE 40 MG TABLET PO SCH (08:16)
[2018-03-05] MEDS: POTASSIUM CHLORIDE 20 MEQ TABLET PO SCH ×3 (08:16→20:59)
[2018-03-05] MEDS: predniSONE 10 MG TABLET PO SCH (08:16)
[2018-03-05] MEDS: APIXABAN 5 MG TABLET PO SCH ×2 (08:17→20:59)
[2018-03-05] MEDS: NYSTATIN POWDER 15 GM BOTTLE TOP SCH ×2 (08:18→21:07)
[2018-03-05] MEDS: CAPSAICIN 0.025% CREAM 60 GM TUBE TOP PRN (08:19)
[2018-03-05] MEDS: ZAFIRLUKAST 20 MG TABLET PO SCH ×2 (09:37→20:59)
[2018-03-05] MEDS: MULTIVITAMIN (BEROCCA) TABLET PO SCH (20:59)
[2018-03-05] MEDS: ACETAMINOPHEN 325 MG TABLET PO PRN (21:00)
[2018-03-05] MEDS: guaiFENesin 200 MG/10 ML UDCUP PO PRN (22:34)
[2018-03-06] MEDS: ALBUTEROL/IPRATROPIUM 3 ML NEB RESP TX SCH ×4 (00:04→19:32)
[2018-03-06] MEDS: CLINDAMYCIN INJ 300 MG in PREMIX 1 EACH IV SCH ×3 (04:52→21:42)
[2018-03-06] MEDS: LEVOTHYROXINE 100 MCG TABLET PO SCH (05:56)
[2018-03-06] MEDS: APIXABAN 5 MG TABLET PO SCH ×2 (08:48→21:44)
[2018-03-06] MEDS: POTASSIUM CHLORIDE 20 MEQ TABLET PO SCH ×3 (08:48→21:44)
[2018-03-06] MEDS: TORSEMIDE 20 MG TABLET PO SCH ×2 (08:48→17:02)
[2018-03-06] MEDS: PANTOPRAZOLE 40 MG TABLET PO SCH (08:49)
[2018-03-06] MEDS: guaiFENesin/DM ER 600-30 MG TABLET PO PRN (08:49)
[2018-03-06] MEDS: MAGNESIUM CHLORIDE 64 MG TABLET PO SCH ×2 (08:49→21:46)
[2018-03-06] MEDS: predniSONE 10 MG TABLET PO SCH (08:49)
[2018-03-06] MEDS: ZAFIRLUKAST 20 MG TABLET PO SCH ×2 (08:49→21:43)
[2018-03-06] MEDS: NYSTATIN POWDER 15 GM BOTTLE TOP SCH ×2 (08:53→21:45)
[2018-03-06] MEDS: LEVOFLOXACIN INJ 500 MG in PREMIX 1 EACH IV SCH (08:53)
[2018-03-06] MEDS: ALLOPURINOL 300 MG TABLET PO SCH (08:56)
[2018-03-06] MEDS ORDERED: MAGNESIUM HYDROXIDE SUSP 30 ML UDCUP PO PRN (20:26)
[2018-03-06] MEDS ORDERED: ALUMINUM/MAGNES/SIMETH MAX STR 30 ML UDCUP PO PRN (20:26)
[2018-03-06] MEDS: MULTIVITAMIN (BEROCCA) TABLET PO SCH (21:44)
[2018-03-06] MEDS: ACETAMINOPHEN 325 MG TABLET PO PRN (23:28)
[2018-03-06] MEDS: guaiFENesin 200 MG/10 ML UDCUP PO PRN (23:28)
[2018-03-07] MEDS: ALBUTEROL/IPRATROPIUM 3 ML NEB RESP TX SCH ×2 (01:17→07:08)
[2018-03-07 06:17] LABS: Basophils # 0.1 10*3/uL (0.0-0.2); Basophils % 0.7 % (0.0-0.8); Eosinophils # 0.2 10*3/uL (0.0-0.87); Hematocrit 43.5 VOL% (35.7-47.0); Hemoglobin 13.7 GM/DL (12.0-16.0); Immature Granulocytes % 0.8 %; Immature Granulocytes Absolute 0.06 #; Lymphocytes # 1.1 10*3/uL (1.4-4.0); Lymphocytes % 14.6 % (21.3-54.2); Mean Corpuscular HGB Conc 31.5 GM/DL (32-36); Mean Corpuscular Hemoglobin 32 PG (27-34); Mean Corpuscular Volume 100.9 FL (87-102); Mean Platelet Volume 9.9 FL (9.6-12.0); Monocytes # 0.8 10*3/uL (0.11-0.8); Monocytes % 11.2 % (1.7-12.7); NRBC # 0.02 10*3/uL; Neutrophils # 5.2 10*3/uL (1.4-7.4); Neutrophils % 69.7 % (38.7-73.9); Platelet Count 188 T/CUMM (130-400); Red Blood Count 4.31 MC/CUMM (3.8-5.5); Red Cell Distribution Width 14.9 % (9.3-17.3); White Blood Count 7.4 T/CUMM (4-12)
[2018-03-07] MEDS: CLINDAMYCIN INJ 300 MG in PREMIX 1 EACH IV SCH (06:20)
[2018-03-07] MEDS: LEVOTHYROXINE 100 MCG TABLET PO SCH (06:34)
[2018-03-07 06:46] LABS: Osmolality,Calculated 279.5 MOS/KG (273-304); Potassium 3.4 MMOL/L (3.5-5.1)
[2018-03-07] MEDS: ALLOPURINOL 300 MG TABLET PO SCH (09:22)
[2018-03-07] MEDS: APIXABAN 5 MG TABLET PO SCH (09:22)
[2018-03-07] MEDS: POTASSIUM CHLORIDE 20 MEQ TABLET PO SCH (09:22)
[2018-03-07] MEDS: ZAFIRLUKAST 20 MG TABLET PO SCH (09:22)
[2018-03-07] MEDS: predniSONE 10 MG TABLET PO SCH (09:23)
[2018-03-07] MEDS: PANTOPRAZOLE 40 MG TABLET PO SCH (09:23)
[2018-03-07] MEDS: THEOPHYLLINE ER 300 MG TABLET PO SCH (09:23)
[2018-03-07] MEDS: MAGNESIUM CHLORIDE 64 MG TABLET PO SCH (09:24)
[2018-03-07] MEDS: TORSEMIDE 20 MG TABLET PO SCH (10:41)
[2018-03-07] MEDS: NYSTATIN POWDER 15 GM BOTTLE TOP SCH (10:42)
[2018-03-07] MEDS: LEVOFLOXACIN INJ 500 MG in PREMIX 1 EACH IV SCH (10:42)
[2018-03-07 12:17] VITALS: BP 124/76
== END 2018-03-07 12:14 | disposition home health service (06) | DRG 291 ==
LOC: N.ED 12:20 → SUATTDRO 14:18 → N.EDINP 14:18 → N.2E 17:31
PROVIDERS: ADMIT Internal Medicine; ATTEND Internal Medicine Geriatric Medicine

== ENCOUNTER 2018-03-10 21:39 | Inpatient (IN) ==
[2018-03-10] MEDS ORDERED: methylPREDNISolone SOD SUC 125 MG/2 ML VIAL IV STA (22:04)
[2018-03-10] MEDS ORDERED: MORPHINE 4 MG/1 ML VIAL IV STA (22:04)
[2018-03-10] MEDS ORDERED: FUROSEMIDE 40 MG/4 ML VIAL IV STA (22:04)
[2018-03-10] MEDS ORDERED: ALBUTEROL/IPRATROPIUM 3 ML NEB RESP TX STA (22:04)
[2018-03-10] MEDS ORDERED: ONDANSETRON 4 MG/2 ML VIAL IV STA (22:04)
[2018-03-10] MEDS ORDERED: ALUM/MAG/SIMETH/LIDO VISC 1:1 30 ML BOTTLE PO STA (22:04)
[2018-03-10] MEDS ORDERED: PANTOPRAZOLE 40 MG VIAL IV STA (22:04)
[2018-03-10 22:19] LABS: Basophils # 0.1 10*3/uL (0.0-0.2); Basophils % 0.5 % (0.0-0.8); Eosinophils # 0.1 10*3/uL (0.0-0.87); Eosinophils % 1.3 % (0.00-10.9); Hemoglobin 14.3 GM/DL (12.0-16.0); Immature Granulocytes % 0.7 %; Immature Granulocytes Absolute 0.07 #; Lymphocytes # 0.7 10*3/uL (1.4-4.0); Lymphocytes % 6.7 % (21.3-54.2); Mean Corpuscular HGB Conc 31.1 GM/DL (32-36); Mean Corpuscular Hemoglobin 32 PG (27-34); Mean Corpuscular Volume 103.8 FL (87-102); Mean Platelet Volume 9.6 FL (9.6-12.0); Monocytes # 0.8 10*3/uL (0.11-0.8); Monocytes % 7.3 % (1.7-12.7); NRBC # 0.03 10*3/uL; Neutrophils # 8.7 10*3/uL (1.4-7.4); Neutrophils % 83.5 % (38.7-73.9); Platelet Count 197 T/CUMM (130-400); Red Blood Count 4.43 MC/CUMM (3.8-5.5); Red Cell Distribution Width 14.9 % (9.3-17.3); White Blood Count 10.4 T/CUMM (4-12)
[2018-03-10 22:39] LABS: Albumin 3.7 G/DL (3.4-5.0); Bilirubin,Total 0.6 MG/DL (0.2-1.0); Calcium 9.3 MG/DL (8.5-10.1); Lactic Acid 1.5 MMOL/L (0.4-2.0); Osmolality,Calculated 281.5 MOS/KG (273-304); Potassium 3.4 MMOL/L (3.5-5.1); Total Protein 7.1 G/DL (6.4-8.3)
[2018-03-10 23:40] LABS: Apearance,Urine CLOUDY (Clear); Bacteria,Urine Many /HPF (Few); Bilirubin,Urine Negative (Negative); Blood, Urine Moderate mg/dL (Negative); Glucose,Urine (UA) Negative (Negative); Ketones,Urine Negative (Negative); Nitrite,Urine Negative (Negative); Protein,Urine 30 MG/DL; RBC,Urine 58 /HPF (0-4); Urine Color Yellow (Yellow); Urine Specific Gravity 1.005 (1.001-1.035); Urine Urobilinogen < 2.0 EU/DL (0.2-1.0); WBC,Urine 616 /HPF (0-6)
[2018-03-11] MEDS ORDERED: ONDANSETRON 4 MG/2 ML VIAL IV STA (00:21)
[2018-03-11] MEDS ORDERED: ONDANSETRON 4 MG/2 ML VIAL IV PRN (01:00)
[2018-03-11] MEDS ORDERED: ALBUTEROL 2.5 MG/3 ML NEB RESP TX PRN (01:08)
[2018-03-11] MEDS ORDERED: traMADol 50 MG TABLET PO PRN (01:08)
[2018-03-11] MEDS ORDERED: ACETAMINOPHEN 325 MG TABLET PO PRN (01:20)
[2018-03-11] MEDS: ALBUTEROL/IPRATROPIUM 3 ML NEB RESP TX SCH ×4 (02:07→18:53)
[2018-03-11] MEDS: LEVOTHYROXINE 100 MCG TABLET PO SCH (05:17)
[2018-03-11] MEDS ORDERED: TORSEMIDE 20 MG TABLET PO SCH (08:00)
[2018-03-11 08:16] LABS: Basophils % 0.2 % (0.0-0.8); Hematocrit 45.2 VOL% (35.7-47.0); Hemoglobin 13.9 GM/DL (12.0-16.0); Lymphocytes # 0.2 10*3/uL (1.4-4.0); Lymphocytes % 2.1 % (21.3-54.2); Mean Corpuscular HGB Conc 30.8 GM/DL (32-36); Mean Corpuscular Hemoglobin 32 PG (27-34); Mean Corpuscular Volume 104.4 FL (87-102); Mean Platelet Volume 9.8 FL (9.6-12.0); Monocytes # 0.1 10*3/uL (0.11-0.8); Monocytes % 1.1 % (1.7-12.7); NRBC # 0.02 10*3/uL; Neutrophils # 9.3 10*3/uL (1.4-7.4); Neutrophils % 95.6 % (38.7-73.9); Platelet Count 204 T/CUMM (130-400); Red Blood Count 4.33 MC/CUMM (3.8-5.5); Red Cell Distribution Width 14.8 % (9.3-17.3); White Blood Count 9.7 T/CUMM (4-12)
[2018-03-11 08:32] LABS: Calcium 9.4 MG/DL (8.5-10.1); Potassium 4.3 MMOL/L (3.5-5.1)
[2018-03-11 08:43] LABS: Band Neutrophils 1 % (0-10); Hypochromasia 2+; Lymphocytes 2 % (20-55); Microcytosis 2+; Platelet Estimate Adequate; Segmented Neutrophils 97 % (50-85); Total Cells Counted 100
[2018-03-11] MEDS: FUROSEMIDE 40 MG/4 ML VIAL IV SCH ×2 (08:56→15:13)
[2018-03-11] MEDS: LEVOFLOXACIN INJ 750 MG in PREMIX 1 EACH IV SCH (08:57)
[2018-03-11] MEDS: traMADol 50 MG TABLET PO PRN (08:58)
[2018-03-11] MEDS: THEOPHYLLINE ER 300 MG TABLET PO SCH (09:03)
[2018-03-11] MEDS: ZAFIRLUKAST 20 MG TABLET PO SCH ×2 (09:03→20:39)
[2018-03-11] MEDS: APIXABAN 5 MG TABLET PO SCH ×2 (09:04→20:39)
[2018-03-11] MEDS: predniSONE 10 MG TABLET PO SCH (09:04)
[2018-03-11] MEDS: PANTOPRAZOLE 40 MG TABLET PO SCH (09:04)
[2018-03-11] MEDS: MAGNESIUM CHLORIDE 64 MG TABLET PO SCH ×2 (09:59→20:39)
[2018-03-11] MEDS: POTASSIUM CHLORIDE 20 MEQ TABLET PO SCH ×3 (10:00→20:39)
[2018-03-11] MEDS: ALLOPURINOL 300 MG TABLET PO SCH (10:00)
[2018-03-11] MEDS: MULTIVITAMIN (BEROCCA) TABLET PO SCH (20:39)
[2018-03-11] MEDS: VITAMIN E 1000 UNIT CAPSULE PO SCH (20:40)
[2018-03-12] MEDS: ALBUTEROL/IPRATROPIUM 3 ML NEB RESP TX SCH ×4 (01:26→19:12)
[2018-03-12] MEDS: ACETAMINOPHEN 325 MG TABLET PO PRN (01:39)
[2018-03-12] MEDS: LEVOTHYROXINE 100 MCG TABLET PO SCH (05:59)
[2018-03-12 06:02] LABS: Calcium 9.2 MG/DL (8.5-10.1); Osmolality,Calculated 272.5 MOS/KG (273-304); Potassium 5.8 MMOL/L (3.5-5.1); T4 (Thyroxine) 7.4 UG/DL (4.7-13.3); Thyroid Stimulating Hormone 1.2 uIU/ml (0.358-3.74)
[2018-03-12] MEDS: MAGNESIUM CHLORIDE 64 MG TABLET PO SCH ×2 (09:49→21:16)
[2018-03-12] MEDS: PANTOPRAZOLE 40 MG TABLET PO SCH (09:49)
[2018-03-12] MEDS: ALLOPURINOL 300 MG TABLET PO SCH (09:49)
[2018-03-12] MEDS: APIXABAN 5 MG TABLET PO SCH ×2 (09:49→21:16)
[2018-03-12] MEDS: THEOPHYLLINE ER 300 MG TABLET PO SCH (09:49)
[2018-03-12] MEDS: ZAFIRLUKAST 20 MG TABLET PO SCH ×2 (09:50→21:16)
[2018-03-12] MEDS: predniSONE 10 MG TABLET PO SCH (09:50)
[2018-03-12] MEDS: LEVOFLOXACIN INJ 750 MG in PREMIX 1 EACH IV SCH (09:52)
[2018-03-12 12:41] LABS: ABG Base Excess 11.3 MMOL/L (-2.5-2.5); ABG HCO3 39.3 MMOL/L (20-26); ABG Oxygen Saturation 80.8 % (95-100); ABG PCO2 67.3 MM HG (35-48); ABG PH 7.384 (7.35-7.45); ABG PO2 47.3 MM HG (80-95); ABG TCO2 41.3 MMOL/L (23-27)
[2018-03-12] MEDS: NYSTATIN 500,000 UNIT/5 ML UDCUP SWISH/SWAL SCH ×3 (16:10→21:16)
[2018-03-12] MEDS: MEROPENEM 500 MG in SYRINGE 1 EACH IV SCH (16:12)
[2018-03-12] MEDS ORDERED: LEVOFLOXACIN INJ 250 MG in PREMIX 1 EACH IV SCH (17:00)
[2018-03-12] MEDS: FLUCONAZOLE INJ 100 MG in PREMIX 1 EACH IV SCH (17:23)
[2018-03-12] MEDS: MULTIVITAMIN (BEROCCA) TABLET PO SCH (21:16)
[2018-03-12] MEDS: VITAMIN E 1000 UNIT CAPSULE PO SCH (21:16)
[2018-03-13] MEDS: ALBUTEROL/IPRATROPIUM 3 ML NEB RESP TX SCH ×4 (01:14→19:26)
[2018-03-13] MEDS: MEROPENEM 500 MG in SYRINGE 1 EACH IV SCH ×2 (02:54→16:52)
[2018-03-13] MEDS: LEVOTHYROXINE 100 MCG TABLET PO SCH (05:51)
[2018-03-13 06:17] LABS: Basophils % 0.3 % (0.0-0.8); Eosinophils # 0.1 10*3/uL (0.0-0.87); Eosinophils % 0.8 % (0.00-10.9); Hematocrit 43.6 VOL% (35.7-47.0); Hemoglobin 13.5 GM/DL (12.0-16.0); Immature Granulocytes % 1.5 %; Immature Granulocytes Absolute 0.16 #; Lymphocytes # 1.2 10*3/uL (1.4-4.0); Lymphocytes % 10.6 % (21.3-54.2); Mean Corpuscular Hemoglobin 32 PG (27-34); Mean Corpuscular Volume 104.1 FL (87-102); Mean Platelet Volume 10.2 FL (9.6-12.0); Monocytes # 1.1 10*3/uL (0.11-0.8); Monocytes % 9.7 % (1.7-12.7); NRBC # 0.06 10*3/uL; Neutrophils # 8.4 10*3/uL (1.4-7.4); Neutrophils % 77.1 % (38.7-73.9); Platelet Count 182 T/CUMM (130-400); Red Blood Count 4.19 MC/CUMM (3.8-5.5); Red Cell Distribution Width 14.4 % (9.3-17.3); White Blood Count 10.9 T/CUMM (4-12)
[2018-03-13 06:24] LABS: INR 1.1; PT Patient Result 11.8 SECS; Partial Thromboplastin Time 30.1 SECS (0-40)
[2018-03-13 06:29] LABS: Calcium 9.4 MG/DL (8.5-10.1); Osmolality,Calculated 273.4 MOS/KG (273-304); Potassium 4.7 MMOL/L (3.5-5.1)
[2018-03-13] MEDS ORDERED: diphenhydrAMINE 50 MG/1 ML VIAL IM ONE (08:00)
[2018-03-13] MEDS ORDERED: MEPERIDINE 50 MG/1 ML VIAL IM ONE (08:00)
[2018-03-13] MEDS ORDERED: BENZONATATE 100 MG CAPSULE PO ONE (08:00)
[2018-03-13] MEDS: FUROSEMIDE 40 MG/4 ML VIAL IV SCH (08:07)
[2018-03-13] MEDS ORDERED: LIDOCAINE 2% VISCOUS 100 ML BOTTLE SWISH/SPIT ONE (08:30)
[2018-03-13] MEDS ORDERED: LIDOCAINE 1% 20 ML VIAL MISC INJ ONE (08:30)
[2018-03-13] MEDS ORDERED: LIDOCAINE 2% 20 ML VIAL RESP TX ONE (08:30)
[2018-03-13] MEDS ORDERED: LEVOFLOXACIN INJ 750 MG in PREMIX 1 EACH IV SCH (09:00)
[2018-03-13] MEDS: ZAFIRLUKAST 20 MG TABLET PO SCH ×2 (09:47→20:56)
[2018-03-13] MEDS: PANTOPRAZOLE 40 MG TABLET PO SCH (09:47)
[2018-03-13] MEDS: ALLOPURINOL 300 MG TABLET PO SCH (09:47)
[2018-03-13] MEDS: MAGNESIUM CHLORIDE 64 MG TABLET PO SCH ×2 (09:47→20:47)
[2018-03-13] MEDS: APIXABAN 5 MG TABLET PO SCH ×2 (09:47→20:47)
[2018-03-13] MEDS: THEOPHYLLINE ER 300 MG TABLET PO SCH (09:47)
[2018-03-13] MEDS: predniSONE 10 MG TABLET PO SCH (09:47)
[2018-03-13] MEDS: NYSTATIN 500,000 UNIT/5 ML UDCUP SWISH/SWAL SCH ×4 (09:48→20:56)
[2018-03-13] MEDS: FLUCONAZOLE INJ 100 MG in PREMIX 1 EACH IV SCH (16:57)
[2018-03-13] MEDS: MULTIVITAMIN (BEROCCA) TABLET PO SCH (20:47)
[2018-03-13] MEDS: VITAMIN E 1000 UNIT CAPSULE PO SCH (20:47)
[2018-03-14] MEDS: ALBUTEROL/IPRATROPIUM 3 ML NEB RESP TX SCH ×4 (01:08→20:00)
[2018-03-14] MEDS: MEROPENEM 500 MG in SYRINGE 1 EACH IV SCH ×2 (02:45→14:39)
[2018-03-14 03:40] LABS: Basophils % 0.3 % (0.0-0.8); Eosinophils # 0.1 10*3/uL (0.0-0.87); Hematocrit 39.8 VOL% (35.7-47.0); Hemoglobin 12.4 GM/DL (12.0-16.0); Immature Granulocytes % 1.6 %; Immature Granulocytes Absolute 0.16 #; Lymphocytes # 1.1 10*3/uL (1.4-4.0); Lymphocytes % 11.3 % (21.3-54.2); Mean Corpuscular HGB Conc 31.2 GM/DL (32-36); Mean Corpuscular Hemoglobin 32 PG (27-34); Mean Corpuscular Volume 103.4 FL (87-102); Mean Platelet Volume 9.9 FL (9.6-12.0); Monocytes % 10.2 % (1.7-12.7); NRBC # 0.04 10*3/uL; Neutrophils # 7.6 10*3/uL (1.4-7.4); Neutrophils % 75.6 % (38.7-73.9); Platelet Count 161 T/CUMM (130-400); Red Blood Count 3.85 MC/CUMM (3.8-5.5); Red Cell Distribution Width 14.5 % (9.3-17.3)
[2018-03-14 03:58] LABS: Osmolality,Calculated 273.4 MOS/KG (273-304); Potassium 4.6 MMOL/L (3.5-5.1)
[2018-03-14] MEDS: LEVOTHYROXINE 100 MCG TABLET PO SCH (06:04)
[2018-03-14] MEDS: predniSONE 10 MG TABLET PO SCH (08:43)
[2018-03-14] MEDS: THEOPHYLLINE ER 300 MG TABLET PO SCH (08:43)
[2018-03-14] MEDS: MAGNESIUM CHLORIDE 64 MG TABLET PO SCH ×2 (08:43→20:04)
[2018-03-14] MEDS: APIXABAN 5 MG TABLET PO SCH ×2 (08:43→20:04)
[2018-03-14] MEDS: PANTOPRAZOLE 40 MG TABLET PO SCH (08:43)
[2018-03-14] MEDS: ALLOPURINOL 300 MG TABLET PO SCH (08:43)
[2018-03-14] MEDS: ZAFIRLUKAST 20 MG TABLET PO SCH ×2 (10:51→20:04)
[2018-03-14] MEDS: NYSTATIN 500,000 UNIT/5 ML UDCUP SWISH/SWAL SCH ×4 (10:51→20:03)
[2018-03-14] MEDS: FLUCONAZOLE INJ 100 MG in PREMIX 1 EACH IV SCH (16:15)
[2018-03-14] MEDS: VITAMIN E 1000 UNIT CAPSULE PO SCH (20:04)
[2018-03-14] MEDS: MULTIVITAMIN (BEROCCA) TABLET PO SCH (20:04)
[2018-03-15] MEDS: ALBUTEROL/IPRATROPIUM 3 ML NEB RESP TX SCH ×4 (01:38→18:57)
[2018-03-15] MEDS: MEROPENEM 500 MG in SYRINGE 1 EACH IV SCH ×2 (02:44→15:50)
[2018-03-15] MEDS: LEVOTHYROXINE 100 MCG TABLET PO SCH (05:44)
[2018-03-15] MEDS: THEOPHYLLINE ER 300 MG TABLET PO SCH (09:20)
[2018-03-15] MEDS: predniSONE 10 MG TABLET PO SCH (09:20)
[2018-03-15] MEDS: ALLOPURINOL 300 MG TABLET PO SCH (09:20)
[2018-03-15] MEDS: APIXABAN 5 MG TABLET PO SCH ×2 (09:20→21:41)
[2018-03-15] MEDS: MAGNESIUM CHLORIDE 64 MG TABLET PO SCH ×2 (09:20→21:41)
[2018-03-15] MEDS: ZAFIRLUKAST 20 MG TABLET PO SCH ×2 (09:20→21:41)
[2018-03-15] MEDS: NYSTATIN 500,000 UNIT/5 ML UDCUP SWISH/SWAL SCH ×4 (09:20→21:41)
[2018-03-15] MEDS: PANTOPRAZOLE 40 MG TABLET PO SCH (09:20)
[2018-03-15] MEDS: ACETAMINOPHEN 325 MG TABLET PO PRN ×2 (16:40→21:47)
[2018-03-15] MEDS: VITAMIN E 1000 UNIT CAPSULE PO SCH (21:41)
[2018-03-15] MEDS: guaiFENesin/DM ER 600-30 MG TABLET PO SCH (21:41)
[2018-03-15] MEDS: MULTIVITAMIN (BEROCCA) TABLET PO SCH (21:42)
[2018-03-16] MEDS: ALBUTEROL/IPRATROPIUM 3 ML NEB RESP TX SCH ×4 (00:08→19:37)
[2018-03-16] MEDS: MEROPENEM 500 MG in SYRINGE 1 EACH IV SCH ×2 (03:03→15:24)
[2018-03-16 05:22] LABS: Basophils % 0.4 % (0.0-0.8); Eosinophils # 0.2 10*3/uL (0.0-0.87); Eosinophils % 2.5 % (0.00-10.9); Hematocrit 40.7 VOL% (35.7-47.0); Immature Granulocytes % 1.3 %; Immature Granulocytes Absolute 0.12 #; Lymphocytes # 1.1 10*3/uL (1.4-4.0); Lymphocytes % 11.7 % (21.3-54.2); Mean Corpuscular HGB Conc 31.9 GM/DL (32-36); Mean Corpuscular Hemoglobin 32 PG (27-34); Mean Platelet Volume 10.1 FL (9.6-12.0); Monocytes # 0.9 10*3/uL (0.11-0.8); Monocytes % 9.3 % (1.7-12.7); NRBC # 0.04 10*3/uL; Neutrophils # 6.8 10*3/uL (1.4-7.4); Neutrophils % 74.8 % (38.7-73.9); Platelet Count 174 T/CUMM (130-400); Red Blood Count 4.03 MC/CUMM (3.8-5.5); Red Cell Distribution Width 14.8 % (9.3-17.3); White Blood Count 9.2 T/CUMM (4-12)
[2018-03-16 05:37] LABS: Osmolality,Calculated 273.2 MOS/KG (273-304); Potassium 4.5 MMOL/L (3.5-5.1)
[2018-03-16] MEDS: LEVOTHYROXINE 100 MCG TABLET PO SCH (06:09)
[2018-03-16] MEDS: APIXABAN 5 MG TABLET PO SCH (09:06)
[2018-03-16] MEDS: ZAFIRLUKAST 20 MG TABLET PO SCH ×3 (09:06→20:21)
[2018-03-16] MEDS: predniSONE 10 MG TABLET PO SCH (09:06)
[2018-03-16] MEDS: guaiFENesin/DM ER 600-30 MG TABLET PO SCH ×2 (09:06→20:22)
[2018-03-16] MEDS: NYSTATIN 500,000 UNIT/5 ML UDCUP SWISH/SWAL SCH ×4 (09:07→20:22)
[2018-03-16] MEDS: ALLOPURINOL 300 MG TABLET PO SCH (09:07)
[2018-03-16] MEDS: THEOPHYLLINE ER 300 MG TABLET PO SCH (09:07)
[2018-03-16] MEDS: MAGNESIUM CHLORIDE 64 MG TABLET PO SCH ×2 (09:07→22:11)
[2018-03-16] MEDS: PANTOPRAZOLE 40 MG TABLET PO SCH (09:07)
[2018-03-16] MEDS: ACETAMINOPHEN 325 MG TABLET PO PRN ×2 (18:45→22:35)
[2018-03-16] MEDS: MULTIVITAMIN (BEROCCA) TABLET PO SCH (20:21)
[2018-03-16] MEDS: VITAMIN E 1000 UNIT CAPSULE PO SCH (20:21)
[2018-03-17] MEDS: ALBUTEROL/IPRATROPIUM 3 ML NEB RESP TX SCH ×4 (00:59→19:43)
[2018-03-17] MEDS: MEROPENEM 500 MG in SYRINGE 1 EACH IV SCH ×2 (03:09→15:14)
[2018-03-17] MEDS: LEVOTHYROXINE 100 MCG TABLET PO SCH (05:35)
[2018-03-17 06:05] LABS: Basophils # 0.1 10*3/uL (0.0-0.2); Basophils % 0.5 % (0.0-0.8); Eosinophils # 0.3 10*3/uL (0.0-0.87); Eosinophils % 2.8 % (0.00-10.9); Hematocrit 40.2 VOL% (35.7-47.0); Hemoglobin 12.7 GM/DL (12.0-16.0); Immature Granulocytes % 1.2 %; Immature Granulocytes Absolute 0.11 #; Lymphocytes % 10.6 % (21.3-54.2); Mean Corpuscular HGB Conc 31.6 GM/DL (32-36); Mean Corpuscular Hemoglobin 32 PG (27-34); Mean Corpuscular Volume 102.3 FL (87-102); Mean Platelet Volume 9.7 FL (9.6-12.0); Monocytes # 0.8 10*3/uL (0.11-0.8); Monocytes % 8.6 % (1.7-12.7); NRBC # 0.02 10*3/uL; Neutrophils # 7.2 10*3/uL (1.4-7.4); Neutrophils % 76.3 % (38.7-73.9); Platelet Count 153 T/CUMM (130-400); Red Blood Count 3.93 MC/CUMM (3.8-5.5); Red Cell Distribution Width 14.8 % (9.3-17.3); White Blood Count 9.4 T/CUMM (4-12)
[2018-03-17 06:25] LABS: Calcium 9.1 MG/DL (8.5-10.1); Potassium 4.3 MMOL/L (3.5-5.1); Potassium 4.4 MMOL/L (3.5-5.1)
[2018-03-17] MEDS: predniSONE 10 MG TABLET PO SCH (09:25)
[2018-03-17] MEDS: NYSTATIN 500,000 UNIT/5 ML UDCUP SWISH/SWAL SCH ×4 (09:25→21:05)
[2018-03-17] MEDS: PANTOPRAZOLE 40 MG TABLET PO SCH (09:26)
[2018-03-17] MEDS: ALLOPURINOL 300 MG TABLET PO SCH (09:26)
[2018-03-17] MEDS: guaiFENesin/DM ER 600-30 MG TABLET PO SCH ×2 (09:26→21:05)
[2018-03-17] MEDS: THEOPHYLLINE ER 300 MG TABLET PO SCH (09:26)
[2018-03-17] MEDS: ENOXAPARIN 120 MG/0.8 ML SYRINGE SUBCUT SCH ×2 (09:27→21:06)
[2018-03-17] MEDS: MAGNESIUM CHLORIDE 64 MG TABLET PO SCH (09:39)
[2018-03-17] MEDS: ZAFIRLUKAST 20 MG TABLET PO SCH ×2 (10:34→21:06)
[2018-03-17] MEDS: ACETAMINOPHEN 325 MG TABLET PO PRN (21:04)
[2018-03-17] MEDS: VITAMIN E 1000 UNIT CAPSULE PO SCH (21:05)
[2018-03-17] MEDS: MULTIVITAMIN (BEROCCA) TABLET PO SCH (21:06)
[2018-03-17] MEDS: traMADol 50 MG TABLET PO PRN (22:55)
[2018-03-18] MEDS: MORPHINE 4 MG/1 ML VIAL IV PRN ×2 (00:03→03:03)
[2018-03-18] MEDS: ALBUTEROL/IPRATROPIUM 3 ML NEB RESP TX SCH ×5 (00:11→23:59)
[2018-03-18] MEDS: MEROPENEM 500 MG in SYRINGE 1 EACH IV SCH ×2 (03:00→16:10)
[2018-03-18] MEDS: LEVOTHYROXINE 100 MCG TABLET PO SCH (05:26)
[2018-03-18 05:55] LABS: Basophils % 0.2 % (0.0-0.8); Eosinophils # 0.1 10*3/uL (0.0-0.87); Eosinophils % 0.3 % (0.00-10.9); Hematocrit 42.4 VOL% (35.7-47.0); Hemoglobin 13.2 GM/DL (12.0-16.0); Immature Granulocytes % 0.8 %; Immature Granulocytes Absolute 0.14 #; Lymphocytes # 0.4 10*3/uL (1.4-4.0); Lymphocytes % 2.4 % (21.3-54.2); Mean Corpuscular HGB Conc 31.1 GM/DL (32-36); Mean Corpuscular Hemoglobin 32 PG (27-34); Mean Corpuscular Volume 102.7 FL (87-102); Mean Platelet Volume 9.5 FL (9.6-12.0); Monocytes # 1.4 10*3/uL (0.11-0.8); Monocytes % 8.4 % (1.7-12.7); NRBC # 0.03 10*3/uL; Neutrophils # 15.1 10*3/uL (1.4-7.4); Neutrophils % 87.9 % (38.7-73.9); Platelet Count 172 T/CUMM (130-400); Red Blood Count 4.13 MC/CUMM (3.8-5.5); Red Cell Distribution Width 14.8 % (9.3-17.3); White Blood Count 17.2 T/CUMM (4-12)
[2018-03-18 06:20] LABS: Band Neutrophils 3 % (0-10); Hypochromasia 1+; Lymphocytes 3 % (20-55); Nucleated Red Blood Cells 1 (0-5); Platelet Estimate Normal; Segmented Neutrophils 85 % (50-85); Total Cells Counted 100
[2018-03-18 06:22] LABS: Osmolality,Calculated 274.2 MOS/KG (273-304); Potassium 4.9 MMOL/L (3.5-5.1)
[2018-03-18 09:36] LABS: Basophils % 0.2 % (0.0-0.8); Eosinophils % 0.1 % (0.00-10.9); Hematocrit 43.1 VOL% (35.7-47.0); Hemoglobin 13.4 GM/DL (12.0-16.0); Immature Granulocytes % 1.2 %; Immature Granulocytes Absolute 0.21 #; Lymphocytes # 0.4 10*3/uL (1.4-4.0); Mean Corpuscular HGB Conc 31.1 GM/DL (32-36); Mean Corpuscular Hemoglobin 32 PG (27-34); Mean Corpuscular Volume 103.1 FL (87-102); Mean Platelet Volume 9.9 FL (9.6-12.0); Monocytes # 1.4 10*3/uL (0.11-0.8); Monocytes % 7.7 % (1.7-12.7); NRBC # 0.05 10*3/uL; Neutrophils # 16.2 10*3/uL (1.4-7.4); Neutrophils % 88.8 % (38.7-73.9); Platelet Count 183 T/CUMM (130-400); Red Blood Count 4.18 MC/CUMM (3.8-5.5); White Blood Count 18.2 T/CUMM (4-12)
[2018-03-18] MEDS: predniSONE 10 MG TABLET PO SCH (09:49)
[2018-03-18] MEDS: guaiFENesin/DM ER 600-30 MG TABLET PO SCH ×2 (09:49→21:16)
[2018-03-18] MEDS: THEOPHYLLINE ER 300 MG TABLET PO SCH (09:50)
[2018-03-18] MEDS: NYSTATIN 500,000 UNIT/5 ML UDCUP SWISH/SWAL SCH ×4 (09:50→21:16)
[2018-03-18] MEDS: ALLOPURINOL 300 MG TABLET PO SCH (09:50)
[2018-03-18] MEDS: PANTOPRAZOLE 40 MG TABLET PO SCH (09:50)
[2018-03-18] MEDS: ENOXAPARIN 120 MG/0.8 ML SYRINGE SUBCUT SCH ×2 (09:51→21:17)
[2018-03-18 10:05] LABS: Anisocytosis Slight; Band Neutrophils 20 % (0-10); Eosinophils 2 % (0-10); Lymphocytes 4 % (20-55); Platelet Estimate Normal; Segmented Neutrophils 68 % (50-85); Total Cells Counted 100
[2018-03-18] MEDS: ZAFIRLUKAST 20 MG TABLET PO SCH ×2 (11:03→21:16)
[2018-03-18 11:18] LABS: Apearance,Urine CLEAR (Clear); Bilirubin,Urine Negative (Negative); Blood, Urine Moderate mg/dL (Negative); Glucose,Urine (UA) Negative (Negative); Ketones,Urine Negative (Negative); Nitrite,Urine Negative (Negative); Protein,Urine 100 MG/DL; RBC,Urine 4 /HPF (0-4); Urine Color Yellow (Yellow); Urine Specific Gravity 1.014 (1.001-1.035); Urine Urobilinogen < 2.0 EU/DL (0.2-1.0); WBC,Urine 1 /HPF (0-6)
[2018-03-18] MEDS ORDERED: FUROSEMIDE 40 MG/4 ML VIAL IV ONE (16:20)
[2018-03-18] MEDS: MULTIVITAMIN (BEROCCA) TABLET PO SCH (21:16)
[2018-03-18] MEDS: VITAMIN E 1000 UNIT CAPSULE PO SCH (21:18)
[2018-03-18] MEDS: ACETAMINOPHEN 325 MG TABLET PO PRN (21:18)
[2018-03-19] MEDS: MEROPENEM 500 MG in SYRINGE 1 EACH IV SCH ×3 (03:05→21:16)
[2018-03-19 05:31] LABS: Basophils % 0.2 % (0.0-0.8); Eosinophils % 0.2 % (0.00-10.9); Hematocrit 39.2 VOL% (35.7-47.0); Hemoglobin 12.8 GM/DL (12.0-16.0); Immature Granulocytes Absolute 0.14 #; Lymphocytes # 0.7 10*3/uL (1.4-4.0); Lymphocytes % 4.8 % (21.3-54.2); Mean Corpuscular HGB Conc 32.7 GM/DL (32-36); Mean Corpuscular Hemoglobin 33 PG (27-34); Mean Platelet Volume 10.3 FL (9.6-12.0); Monocytes # 1.5 10*3/uL (0.11-0.8); Monocytes % 10.3 % (1.7-12.7); NRBC # 0.05 10*3/uL; Neutrophils # 11.8 10*3/uL (1.4-7.4); Neutrophils % 83.5 % (38.7-73.9); Platelet Count 154 T/CUMM (130-400); Red Blood Count 3.92 MC/CUMM (3.8-5.5); Red Cell Distribution Width 14.9 % (9.3-17.3); White Blood Count 14.1 T/CUMM (4-12)
[2018-03-19] MEDS: LEVOTHYROXINE 100 MCG TABLET PO SCH (05:52)
[2018-03-19 06:11] LABS: Calcium 9.5 MG/DL (8.5-10.1); Osmolality,Calculated 273.5 MOS/KG (273-304)
[2018-03-19 06:11] LABS: Calcium 9.5 MG/DL (8.5-10.1); Osmolality,Calculated 270.7 MOS/KG (273-304)
[2018-03-19 06:15] LABS: Band Neutrophils 1 % (0-10); Eosinophils 1 % (0-10); Hypochromasia 1+; Lymphocytes 8 % (20-55); Platelet Estimate Normal; Segmented Neutrophils 82 % (50-85); Total Cells Counted 100
[2018-03-19] MEDS: ALBUTEROL/IPRATROPIUM 3 ML NEB RESP TX SCH (07:47)
[2018-03-19] MEDS: ZAFIRLUKAST 20 MG TABLET PO SCH ×2 (09:58→21:19)
[2018-03-19] MEDS: THEOPHYLLINE ER 300 MG TABLET PO SCH (09:58)
[2018-03-19] MEDS: guaiFENesin/DM ER 600-30 MG TABLET PO SCH ×2 (09:59→21:19)
[2018-03-19] MEDS: predniSONE 10 MG TABLET PO SCH (09:59)
[2018-03-19] MEDS: ALLOPURINOL 300 MG TABLET PO SCH (09:59)
[2018-03-19] MEDS: PANTOPRAZOLE 40 MG TABLET PO SCH (09:59)
[2018-03-19] MEDS: NYSTATIN 500,000 UNIT/5 ML UDCUP SWISH/SWAL SCH ×4 (10:01→21:18)
[2018-03-19] MEDS: MORPHINE 4 MG/1 ML VIAL IV PRN (11:37)
[2018-03-19] MEDS ORDERED: ALBUTEROL/IPRATROPIUM 3 ML NEB RESP TX ONE (12:00)
[2018-03-19] MEDS: MULTIVITAMIN (BEROCCA) TABLET PO SCH (21:18)
[2018-03-19] MEDS: VITAMIN E 1000 UNIT CAPSULE PO SCH (21:20)
[2018-03-20 05:17] LABS: Basophils % 0.1 % (0.0-0.8); Eosinophils % 0.1 % (0.00-10.9); Hemoglobin 12.4 GM/DL (12.0-16.0); Immature Granulocytes % 1.3 %; Lymphocytes # 0.7 10*3/uL (1.4-4.0); Lymphocytes % 4.7 % (21.3-54.2); Mean Corpuscular HGB Conc 32.6 GM/DL (32-36); Mean Corpuscular Hemoglobin 32 PG (27-34); Mean Corpuscular Volume 98.2 FL (87-102); Mean Platelet Volume 10.7 FL (9.6-12.0); Monocytes # 1.5 10*3/uL (0.11-0.8); Monocytes % 9.8 % (1.7-12.7); NRBC # 0.12 10*3/uL; Neutrophils # 12.7 10*3/uL (1.4-7.4); Platelet Count 167 T/CUMM (130-400); Red Blood Count 3.87 MC/CUMM (3.8-5.5); Red Cell Distribution Width 15.2 % (9.3-17.3); White Blood Count 15.1 T/CUMM (4-12)
[2018-03-20 05:44] LABS: Band Neutrophils 1 % (0-10); Hypochromasia 1+; Lymphocytes 1 % (20-55); Platelet Estimate Normal; Segmented Neutrophils 90 % (50-85); Total Cells Counted 100
[2018-03-20 05:54] LABS: Calcium 9.6 MG/DL (8.5-10.1); Osmolality,Calculated 269.9 MOS/KG (273-304)
[2018-03-20 05:57] LABS: Calcium 9.6 MG/DL (8.5-10.1); Osmolality,Calculated 270.9 MOS/KG (273-304); Potassium 5.1 MMOL/L (3.5-5.1)
[2018-03-20] MEDS: PANTOPRAZOLE 40 MG TABLET PO SCH (08:14)
[2018-03-20] MEDS: THEOPHYLLINE ER 300 MG TABLET PO SCH (08:14)
[2018-03-20] MEDS: guaiFENesin/DM ER 600-30 MG TABLET PO SCH ×2 (08:14→21:24)
[2018-03-20] MEDS: predniSONE 10 MG TABLET PO SCH (08:14)
[2018-03-20] MEDS: ALLOPURINOL 300 MG TABLET PO SCH (08:14)
[2018-03-20] MEDS: NYSTATIN 500,000 UNIT/5 ML UDCUP SWISH/SWAL SCH (08:14)
[2018-03-20] MEDS: ZAFIRLUKAST 20 MG TABLET PO SCH ×2 (08:14→21:24)
[2018-03-20] MEDS: LEVOTHYROXINE 100 MCG TABLET PO SCH (09:10)
[2018-03-20] MEDS: MEROPENEM 500 MG in SYRINGE 1 EACH IV SCH (09:14)
[2018-03-20] MEDS: DEXTROSE 5% NACL 0.9% 1,000 ML IV SCH (11:04)
[2018-03-20] MEDS: CARVEDILOL 6.25 MG TABLET PO SCH ×2 (13:42→21:24)
[2018-03-20] MEDS ORDERED: ALBUTEROL/IPRATROPIUM 3 ML NEB RESP TX PRN (16:42)
[2018-03-20] MEDS: ALBUTEROL/IPRATROPIUM 3 ML NEB RESP TX SCH ×2 (17:00→19:14)
[2018-03-20] MEDS: MULTIVITAMIN (BEROCCA) TABLET PO SCH (21:24)
[2018-03-20] MEDS: ENOXAPARIN 120 MG/0.8 ML SYRINGE SUBCUT SCH (21:25)
[2018-03-20] MEDS: VITAMIN E 1000 UNIT CAPSULE PO SCH (21:25)
[2018-03-21] MEDS: ALBUTEROL/IPRATROPIUM 3 ML NEB RESP TX SCH ×4 (01:41→18:49)
[2018-03-21 04:35] LABS: Calcium 9.2 MG/DL (8.5-10.1); Osmolality,Calculated 272.9 MOS/KG (273-304); Potassium 5.6 MMOL/L (3.5-5.1)
[2018-03-21 04:36] LABS: Osmolality,Calculated 273.9 MOS/KG (273-304); Potassium 5.6 MMOL/L (3.5-5.1)
[2018-03-21 05:15] LABS: Basophils # 0.1 10*3/uL (0.0-0.2); Basophils % 0.3 % (0.0-0.8); Eosinophils % 0.2 % (0.00-10.9); Hematocrit 37.7 VOL% (35.7-47.0); Hemoglobin 12.1 GM/DL (12.0-16.0); Immature Granulocytes % 5.2 %; Immature Granulocytes Absolute 0.85 #; Lymphocytes # 0.7 10*3/uL (1.4-4.0); Lymphocytes % 4.2 % (21.3-54.2); Mean Corpuscular HGB Conc 32.1 GM/DL (32-36); Mean Corpuscular Hemoglobin 32 PG (27-34); Mean Corpuscular Volume 99.5 FL (87-102); Mean Platelet Volume 10.9 FL (9.6-12.0); Monocytes # 1.1 10*3/uL (0.11-0.8); Monocytes % 6.8 % (1.7-12.7); NRBC # 0.88 10*3/uL; Neutrophils # 13.7 10*3/uL (1.4-7.4); Neutrophils % 83.3 % (38.7-73.9); Platelet Count 137 T/CUMM (130-400); Red Blood Count 3.79 MC/CUMM (3.8-5.5); Red Cell Distribution Width 14.8 % (9.3-17.3); White Blood Count 16.4 T/CUMM (4-12)
[2018-03-21] MEDS: DEXTROSE 5% NACL 0.9% 1,000 ML IV SCH ×2 (05:47→06:02)
[2018-03-21] MEDS: LEVOTHYROXINE 100 MCG TABLET PO SCH (06:01)
[2018-03-21 07:00] LABS: Band Neutrophils 3 % (0-10); Lymphocytes 6 % (20-55); Metamyelocytes 6 %; Myelocytes 2 %; Nucleated Red Blood Cells 14 (0-5); Platelet Estimate Decreased; Segmented Neutrophils 78 % (50-85); Total Cells Counted 100
[2018-03-21 07:01] LABS: Anisocytosis 1+; Atypical Lymphocytes Few; Hypochromasia 1+; Macrocytosis 1+; Polychromasia 1+; Target Cells Few
[2018-03-21] MEDS: SODIUM CHLORIDE 1 GM TABLET PO SCH ×4 (09:26→20:08)
[2018-03-21] MEDS: predniSONE 10 MG TABLET PO SCH (09:26)
[2018-03-21] MEDS: ZAFIRLUKAST 20 MG TABLET PO SCH ×2 (09:26→20:07)
[2018-03-21] MEDS: CARVEDILOL 6.25 MG TABLET PO SCH ×2 (09:26→20:08)
[2018-03-21] MEDS: THEOPHYLLINE ER 300 MG TABLET PO SCH (09:27)
[2018-03-21] MEDS: ENOXAPARIN 120 MG/0.8 ML SYRINGE SUBCUT SCH ×2 (09:27→20:06)
[2018-03-21] MEDS: ALLOPURINOL 300 MG TABLET PO SCH (09:27)
[2018-03-21] MEDS: guaiFENesin/DM ER 600-30 MG TABLET PO SCH ×2 (09:27→20:08)
[2018-03-21] MEDS: PANTOPRAZOLE 40 MG TABLET PO SCH (09:27)
[2018-03-21] MEDS ORDERED: SODIUM POLYSTYRENE SULFATE 15 GM/60 ML BOTTLE PO STA (12:33)
[2018-03-21] MEDS: VITAMIN E 1000 UNIT CAPSULE PO SCH (20:07)
[2018-03-21] MEDS: MULTIVITAMIN (BEROCCA) TABLET PO SCH (20:08)
[2018-03-22] MEDS: ALBUTEROL/IPRATROPIUM 3 ML NEB RESP TX SCH ×4 (00:37→19:37)
[2018-03-22] MEDS: DEXTROSE 5% NACL 0.9% 1,000 ML IV SCH (04:43)
[2018-03-22 05:41] LABS: Basophils # 0.1 10*3/uL (0.0-0.2); Basophils % 0.4 % (0.0-0.8); Eosinophils % 0.1 % (0.00-10.9); Hematocrit 38.1 VOL% (35.7-47.0); Hemoglobin 12.5 GM/DL (12.0-16.0); Immature Granulocytes % 5.9 %; Immature Granulocytes Absolute 0.96 #; Lymphocytes # 0.6 10*3/uL (1.4-4.0); Lymphocytes % 3.5 % (21.3-54.2); Mean Corpuscular HGB Conc 32.8 GM/DL (32-36); Mean Corpuscular Hemoglobin 32 PG (27-34); Mean Corpuscular Volume 97.7 FL (87-102); Monocytes # 1.2 10*3/uL (0.11-0.8); Monocytes % 7.4 % (1.7-12.7); NRBC # 1.73 10*3/uL; Neutrophils # 13.4 10*3/uL (1.4-7.4); Neutrophils % 82.7 % (38.7-73.9); Platelet Count 115 T/CUMM (130-400); Red Cell Distribution Width 14.7 % (9.3-17.3); White Blood Count 16.2 T/CUMM (4-12)
[2018-03-22 05:59] LABS: Calcium 8.6 MG/DL (8.5-10.1); Osmolality,Calculated 283.8 MOS/KG (273-304); Potassium 5.2 MMOL/L (3.5-5.1)
[2018-03-22 06:00] LABS: Calcium 8.7 MG/DL (8.5-10.1); Osmolality,Calculated 281.9 MOS/KG (273-304); Potassium 5.1 MMOL/L (3.5-5.1)
[2018-03-22] MEDS: LEVOTHYROXINE 100 MCG TABLET PO SCH (06:55)
[2018-03-22 07:01] LABS: Band Neutrophils 25 % (0-10); Lymphocytes 9 % (20-55); Metamyelocytes 1 %; Nucleated Red Blood Cells 13 (0-5); Platelet Estimate Adequate; Segmented Neutrophils 62 % (50-85); Total Cells Counted 100
[2018-03-22 07:02] LABS: Anisocytosis Slight; Poikilocytosis Slight; Smudge Cells Few
[2018-03-22] MEDS: CARVEDILOL 6.25 MG TABLET PO SCH ×2 (09:45→21:01)
[2018-03-22] MEDS: SODIUM CHLORIDE 1 GM TABLET PO SCH ×2 (09:45→15:14)
[2018-03-22] MEDS: ZAFIRLUKAST 20 MG TABLET PO SCH ×2 (09:45→21:01)
[2018-03-22] MEDS: THEOPHYLLINE ER 300 MG TABLET PO SCH (09:45)
[2018-03-22] MEDS: PANTOPRAZOLE 40 MG TABLET PO SCH (09:45)
[2018-03-22] MEDS: predniSONE 10 MG TABLET PO SCH (09:45)
[2018-03-22] MEDS: guaiFENesin/DM ER 600-30 MG TABLET PO SCH ×2 (09:45→21:01)
[2018-03-22] MEDS: ENOXAPARIN 120 MG/0.8 ML SYRINGE SUBCUT SCH (21:01)
[2018-03-22] MEDS: VITAMIN E 1000 UNIT CAPSULE PO SCH (21:01)
[2018-03-22] MEDS: MULTIVITAMIN (BEROCCA) TABLET PO SCH (21:01)
[2018-03-23] MEDS: ALBUTEROL/IPRATROPIUM 3 ML NEB RESP TX SCH ×4 (00:18→21:12)
[2018-03-23] MEDS: LEVOTHYROXINE 100 MCG TABLET PO SCH (05:01)
[2018-03-23 05:59] LABS: Basophils # 0.1 10*3/uL (0.0-0.2); Basophils % 0.5 % (0.0-0.8); Eosinophils % 0.2 % (0.00-10.9); Hematocrit 39.9 VOL% (35.7-47.0); Hemoglobin 13.3 GM/DL (12.0-16.0); Immature Granulocytes % 6.3 %; Immature Granulocytes Absolute 0.94 #; Lymphocytes # 0.7 10*3/uL (1.4-4.0); Lymphocytes % 4.7 % (21.3-54.2); Mean Corpuscular HGB Conc 33.3 GM/DL (32-36); Mean Corpuscular Hemoglobin 32 PG (27-34); Mean Platelet Volume 11.2 FL (9.6-12.0); Monocytes # 1.2 10*3/uL (0.11-0.8); Monocytes % 7.8 % (1.7-12.7); NRBC # 1.07 10*3/uL; Neutrophils # 12.1 10*3/uL (1.4-7.4); Neutrophils % 80.5 % (38.7-73.9); Red Cell Distribution Width 14.7 % (9.3-17.3)
[2018-03-23 06:09] LABS: Calcium 8.9 MG/DL (8.5-10.1); Osmolality,Calculated 279.1 MOS/KG (273-304); Potassium 5.5 MMOL/L (3.5-5.1)
[2018-03-23 07:22] LABS: Platelet Count 94 T/CUMM (130-400)
[2018-03-23 07:35] LABS: Band Neutrophils 1 % (0-10); Eosinophils 1 % (0-10); Lymphocytes 5 % (20-55); Macrocytosis Slight; Nucleated Red Blood Cells 13 (0-5); Platelet Estimate Decreased; Polychromasia Slight; Segmented Neutrophils 86 % (50-85); Total Cells Counted 100
[2018-03-23 07:36] LABS: Hypochromasia Slight
[2018-03-23 09:30] LABS: ABG Base Excess -0.2 MMOL/L (-2.5-2.5); ABG HCO3 24.3 MMOL/L (20-26); ABG PCO2 37.9 MM HG (35-48); ABG PH 7.411 (7.35-7.45); ABG TCO2 20.9 MMOL/L (23-27)
[2018-03-23 11:03] LABS: Amorphous Crystals,Urine Occasional /HPF (Few); Apearance,Urine CLOUDY (Clear); Bacteria,Urine Few /HPF (Few); Bilirubin,Urine Negative (Negative); Blood, Urine Moderate mg/dL (Negative); Glucose,Urine (UA) Negative (Negative); Ketones,Urine Negative (Negative); Nitrite,Urine Negative (Negative); Protein,Urine 100 MG/DL; RBC,Urine 43 /HPF (0-4); Squamous Epithelial Cell,Urine Few /HPF (0-10); Urine Color Amber (Yellow); Urine Specific Gravity 1.016 (1.001-1.035)
[2018-03-23] MEDS ORDERED: LORazepam 2 MG/1 ML VIAL IV ONE (11:15)
[2018-03-23] MEDS ORDERED: PROPOFOL 1,000 MG/100 ML BOTTLE IV ONE (11:21)
[2018-03-23] MEDS ORDERED: LORazepam 2 MG/1 ML VIAL ONE (11:23)
[2018-03-23] MEDS: PROPOFOL 1,000 MG/100 ML BOTTLE IV SCH ×2 (11:25→14:05)
[2018-03-23] MEDS ORDERED: PHENYTOIN INJ 1,000 MG in SODIUM CHLORIDE 0.9% 100 ML IV ONE (11:30)
[2018-03-23] MEDS: PANTOPRAZOLE 40 MG VIAL IV SCH (12:59)
[2018-03-23] MEDS: THEOPHYLLINE ER 300 MG TABLET PO SCH (13:00)
[2018-03-23] MEDS: guaiFENesin/DM ER 600-30 MG TABLET PO SCH ×2 (13:00→21:48)
[2018-03-23] MEDS: predniSONE 10 MG TABLET PO SCH (13:00)
[2018-03-23] MEDS: ZAFIRLUKAST 20 MG TABLET PO SCH ×2 (13:01→21:48)
[2018-03-23] MEDS ORDERED: NOREPINEPHRINE 4 MG/4 ML VIAL IV ONE (13:41)
[2018-03-23] MEDS: NOREPINEPHRINE 16 MG in SODIUM CHLORIDE 0.9% 234 ML IV PRN (13:48)
[2018-03-23] MEDS: PANTOPRAZOLE 40 MG TABLET PO SCH (13:50)
[2018-03-23] MEDS: CARVEDILOL 6.25 MG TABLET PO SCH ×2 (14:25→21:47)
[2018-03-23] MEDS ORDERED: SODIUM CHLORIDE 0.9% 250 ML IV ONE (14:50)
[2018-03-23] MEDS: SODIUM CHLORIDE 0.9% 1,000 ML IV SCH ×2 (15:16→23:20)
[2018-03-23] MEDS: PHENYTOIN 100 MG/2 ML VIAL IV SCH (17:03)
[2018-03-23] MEDS: ENOXAPARIN 120 MG/0.8 ML SYRINGE SUBCUT SCH (21:48)
[2018-03-23] MEDS: VITAMIN E 1000 UNIT CAPSULE PO SCH (21:48)
[2018-03-23] MEDS: MULTIVITAMIN (BEROCCA) TABLET PO SCH (21:48)
[2018-03-24] MEDS: PHENYTOIN 100 MG/2 ML VIAL IV SCH ×3 (00:37→16:45)
[2018-03-24] MEDS: ALBUTEROL/IPRATROPIUM 3 ML NEB RESP TX SCH ×4 (01:04→19:02)
[2018-03-24 04:25] LABS: ABG Base Excess 0.4 MMOL/L (-2.5-2.5); ABG HCO3 24.8 MMOL/L (20-26); ABG Oxygen Saturation 99.5 % (95-100); ABG PCO2 31.6 MM HG (35-48); ABG PH 7.473 (7.35-7.45); ABG TCO2 20.1 MMOL/L (23-27)
[2018-03-24 05:20] LABS: Basophils # 0.1 10*3/uL (0.0-0.2); Basophils % 0.4 % (0.0-0.8); Hematocrit 36.9 VOL% (35.7-47.0); Hemoglobin 12.6 GM/DL (12.0-16.0); Immature Granulocytes % 4.3 %; Immature Granulocytes Absolute 0.65 #; Lymphocytes # 0.5 10*3/uL (1.4-4.0); Mean Corpuscular HGB Conc 34.1 GM/DL (32-36); Mean Corpuscular Hemoglobin 32 PG (27-34); Mean Corpuscular Volume 93.4 FL (87-102); Mean Platelet Volume 11.5 FL (9.6-12.0); Monocytes # 0.9 10*3/uL (0.11-0.8); Monocytes % 5.8 % (1.7-12.7); Neutrophils # 13.2 10*3/uL (1.4-7.4); Neutrophils % 86.5 % (38.7-73.9); Platelet Count 97 T/CUMM (130-400); Red Blood Count 3.95 MC/CUMM (3.8-5.5); Red Cell Distribution Width 14.6 % (9.3-17.3); White Blood Count 15.2 T/CUMM (4-12)
[2018-03-24 05:40] LABS: Lymphocytes 7 % (20-55); Nucleated Red Blood Cells 7 (0-5); Segmented Neutrophils 88 % (50-85); Total Cells Counted 100
[2018-03-24 05:41] LABS: Hypochromasia 1+; Macrocytosis Slight; Platelet Estimate Decreased
[2018-03-24 05:45] LABS: Calcium 8.6 MG/DL (8.5-10.1); Osmolality,Calculated 292.5 MOS/KG (273-304); Potassium 5.2 MMOL/L (3.5-5.1)
[2018-03-24] MEDS: LEVOTHYROXINE 100 MCG TABLET PO SCH (05:47)
[2018-03-24] MEDS: SODIUM CHLORIDE 0.9% 1,000 ML IV SCH ×2 (07:53→18:39)
[2018-03-24] MEDS ORDERED: DEXTROSE 50% 25 GM/50 ML VIAL IV PRN (09:05)
[2018-03-24] MEDS ORDERED: GLUCAGON 1 MG VIAL IM PRN (09:05)
[2018-03-24] MEDS: guaiFENesin/DM ER 600-30 MG TABLET PO SCH ×2 (09:06→21:05)
[2018-03-24] MEDS: predniSONE 10 MG TABLET PO SCH (09:06)
[2018-03-24] MEDS: THEOPHYLLINE ER 300 MG TABLET PO SCH (09:06)
[2018-03-24] MEDS: ZAFIRLUKAST 20 MG TABLET PO SCH ×2 (09:06→21:06)
[2018-03-24] MEDS: CARVEDILOL 6.25 MG TABLET PO SCH (09:06)
[2018-03-24] MEDS: PANTOPRAZOLE 40 MG VIAL IV SCH (09:07)
[2018-03-24] MEDS: PROPOFOL 1,000 MG/100 ML BOTTLE IV SCH ×2 (09:50→22:30)
[2018-03-24] MEDS: INSULIN REGULAR 100 UNIT/ML SUBCUT SCH ×2 (11:33→18:38)
[2018-03-24] MEDS: ENOXAPARIN 40 MG/0.4 ML SYRINGE SUBCUT SCH (11:41)
[2018-03-24] MEDS ORDERED: SODIUM POLYSTYRENE SULFATE 15 GM/60 ML BOTTLE PO STA (12:52)
[2018-03-24] MEDS: MULTIVITAMIN (BEROCCA) TABLET PO SCH (21:05)
[2018-03-24] MEDS: CARVEDILOL 3.125 MG TABLET PO SCH (21:05)
[2018-03-24] MEDS: VITAMIN E 1000 UNIT CAPSULE PO SCH (21:06)
[2018-03-25] MEDS: PHENYTOIN 100 MG/2 ML VIAL IV SCH ×3 (00:01→17:29)
[2018-03-25] MEDS: ALBUTEROL/IPRATROPIUM 3 ML NEB RESP TX SCH ×4 (00:17→19:47)
[2018-03-25] MEDS: NOREPINEPHRINE 16 MG in SODIUM CHLORIDE 0.9% 234 ML IV PRN (00:50)
[2018-03-25] MEDS: SODIUM CHLORIDE 0.9% 1,000 ML IV SCH ×4 (03:05→21:10)
[2018-03-25 04:53] LABS: ABG Base Excess 2.1 MMOL/L (-2.5-2.5); ABG HCO3 26.3 MMOL/L (20-26); ABG PCO2 28.3 MM HG (35-48); ABG PH 7.534 (7.35-7.45); ABG TCO2 21.1 MMOL/L (23-27)
[2018-03-25 05:39] LABS: Basophils % 0.2 % (0.0-0.8); Eosinophils % 0.1 % (0.00-10.9); Hemoglobin 11.5 GM/DL (12.0-16.0); Immature Granulocytes % 5.2 %; Immature Granulocytes Absolute 0.89 #; Lymphocytes # 0.6 10*3/uL (1.4-4.0); Lymphocytes % 3.6 % (21.3-54.2); Mean Corpuscular HGB Conc 34.8 GM/DL (32-36); Mean Corpuscular Hemoglobin 33 PG (27-34); Mean Corpuscular Volume 93.8 FL (87-102); Mean Platelet Volume 11.8 FL (9.6-12.0); Monocytes # 0.9 10*3/uL (0.11-0.8); Monocytes % 5.1 % (1.7-12.7); NRBC # 2.03 10*3/uL; Neutrophils # 14.7 10*3/uL (1.4-7.4); Neutrophils % 85.8 % (38.7-73.9); Platelet Count 112 T/CUMM (130-400); Red Blood Count 3.52 MC/CUMM (3.8-5.5); Red Cell Distribution Width 15.2 % (9.3-17.3); White Blood Count 17.1 T/CUMM (4-12)
[2018-03-25 05:49] LABS: INR 1.3; PT Patient Result 13.5 SECS; Partial Thromboplastin Time 36.8 SECS (0-40)
[2018-03-25 06:00] LABS: Calcium 7.9 MG/DL (8.5-10.1); Osmolality,Calculated 299.4 MOS/KG (273-304); Potassium 4.5 MMOL/L (3.5-5.1)
[2018-03-25 06:04] LABS: Band Neutrophils 1 % (0-10); Hypochromasia 1+; Lymphocytes 6 % (20-55); Metamyelocytes 1 %; Nucleated Red Blood Cells 16 (0-5); Segmented Neutrophils 91 % (50-85); Total Cells Counted 100
[2018-03-25 06:05] LABS: Microcytosis Slight; Polychromasia Slight; Target Cells Slight
[2018-03-25 06:06] LABS: Platelet Estimate Adequate
[2018-03-25] MEDS: LEVOTHYROXINE 100 MCG TABLET PO SCH (06:38)
[2018-03-25] MEDS: INSULIN REGULAR 100 UNIT/ML SUBCUT SCH ×5 (06:38→23:59)
[2018-03-25 08:20] LABS: Prealbumin 8.2 MG/DL (20-40)
[2018-03-25] MEDS: PROPOFOL 1,000 MG/100 ML BOTTLE IV SCH ×2 (09:30→20:11)
[2018-03-25 10:22] LABS: Albumin 2.6 G/DL (3.4-5.0); Bilirubin,Direct 0.75 MG/DL (0.0-0.20); Bilirubin,Indirect 0.9 MG/DL (0.0-1.0); Bilirubin,Total 1.6 MG/DL (0.2-1.0); Total Protein 4.8 G/DL (6.4-8.3)
[2018-03-25] MEDS: predniSONE 10 MG TABLET PO SCH (10:56)
[2018-03-25] MEDS: CARVEDILOL 3.125 MG TABLET PO SCH (10:57)
[2018-03-25] MEDS: THEOPHYLLINE ER 300 MG TABLET PO SCH (10:57)
[2018-03-25] MEDS: guaiFENesin/DM ER 600-30 MG TABLET PO SCH ×2 (10:57→21:57)
[2018-03-25] MEDS: PANTOPRAZOLE 40 MG VIAL IV SCH (11:05)
[2018-03-25] MEDS: ENOXAPARIN 40 MG/0.4 ML SYRINGE SUBCUT SCH ×3 (12:22→22:19)
[2018-03-25] MEDS: ZAFIRLUKAST 20 MG TABLET PO SCH ×2 (17:27→21:57)
[2018-03-25] MEDS ORDERED: DIGOXIN 0.5 MG/2 ML AMP IV ONE (20:14)
[2018-03-25] MEDS: MULTIVITAMIN (BEROCCA) TABLET PO SCH (21:57)
[2018-03-25] MEDS: VITAMIN E 1000 UNIT CAPSULE PO SCH (21:57)
[2018-03-26] MEDS: PHENYTOIN 100 MG/2 ML VIAL IV SCH ×3 (00:13→18:18)
[2018-03-26] MEDS: ALBUTEROL/IPRATROPIUM 3 ML NEB RESP TX SCH ×4 (00:56→19:39)
[2018-03-26 02:52] LABS: ABG HCO3 25.4 MMOL/L (20-26); ABG Oxygen Saturation 99.9 % (95-100); ABG PCO2 29.7 MM HG (35-48); ABG PH 7.505 (7.35-7.45); ABG TCO2 21.1 MMOL/L (23-27)
[2018-03-26] MEDS: SODIUM CHLORIDE 0.9% 1,000 ML IV SCH ×4 (03:16→20:47)
[2018-03-26] MEDS: PROPOFOL 1,000 MG/100 ML BOTTLE IV SCH ×2 (03:16→11:58)
[2018-03-26 04:04] LABS: Basophils % 0.2 % (0.0-0.8); Eosinophils % 0.3 % (0.00-10.9); Hematocrit 29.3 VOL% (35.7-47.0); Immature Granulocytes % 4.9 %; Immature Granulocytes Absolute 0.64 #; Lymphocytes # 0.5 10*3/uL (1.4-4.0); Lymphocytes % 4.2 % (21.3-54.2); Mean Corpuscular HGB Conc 34.1 GM/DL (32-36); Mean Corpuscular Hemoglobin 32 PG (27-34); Mean Corpuscular Volume 93.9 FL (87-102); Monocytes # 0.5 10*3/uL (0.11-0.8); Monocytes % 4.1 % (1.7-12.7); NRBC # 0.83 10*3/uL; Neutrophils # 11.2 10*3/uL (1.4-7.4); Neutrophils % 86.3 % (38.7-73.9); Red Blood Count 3.12 MC/CUMM (3.8-5.5); Red Cell Distribution Width 15.4 % (9.3-17.3); White Blood Count 12.9 T/CUMM (4-12)
[2018-03-26 04:12] LABS: Platelet Count 89 T/CUMM (130-400)
[2018-03-26 04:38] LABS: Calcium 7.6 MG/DL (8.5-10.1); Potassium 3.6 MMOL/L (3.5-5.1)
[2018-03-26 04:42] LABS: Hypochromasia 1+; Lymphocytes 3 % (20-55); Macrocytosis Slight; Nucleated Red Blood Cells 6 (0-5); Platelet Estimate Decreased; Polychromasia Slight; Segmented Neutrophils 93 % (50-85); Total Cells Counted 100
[2018-03-26] MEDS: INSULIN REGULAR 100 UNIT/ML SUBCUT SCH ×3 (06:05→18:16)
[2018-03-26] MEDS: LEVOTHYROXINE 100 MCG TABLET PO SCH (06:06)
[2018-03-26] MEDS ORDERED: METOPROLOL TARTRATE 5 MG/5 ML VIAL IV ONE (08:45)
[2018-03-26] MEDS ORDERED: AMIODARONE INJ 450 MG in DEXTROSE 5% 241 ML IV SCH ×2 (09:30→15:30)
[2018-03-26] MEDS ORDERED: AMIODARONE INJ 150 MG in DEXTROSE 5% 100 ML IV ONE (09:30)
[2018-03-26] MEDS: THEOPHYLLINE ER 300 MG TABLET PO SCH (10:09)
[2018-03-26] MEDS: guaiFENesin/DM ER 600-30 MG TABLET PO SCH ×2 (10:10→21:15)
[2018-03-26] MEDS: predniSONE 10 MG TABLET PO SCH (10:10)
[2018-03-26] MEDS: ZAFIRLUKAST 20 MG TABLET PO SCH ×2 (10:11→21:15)
[2018-03-26] MEDS: ENOXAPARIN 40 MG/0.4 ML SYRINGE SUBCUT SCH (10:12)
[2018-03-26] MEDS: PANTOPRAZOLE 40 MG VIAL IV SCH (10:16)
[2018-03-26 10:37] LABS: Albumin 2.1 G/DL (3.4-5.0); Bilirubin,Direct 0.85 MG/DL (0.0-0.20); Bilirubin,Indirect 0.7 MG/DL (0.0-1.0); Bilirubin,Total 1.5 MG/DL (0.2-1.0); Total Protein 5.3 G/DL (6.4-8.3)
[2018-03-26] MEDS ORDERED: POTASSIUM CHLORIDE 10 MEQ TABLET PO ONE (15:15)
[2018-03-26] MEDS ORDERED: POTASSIUM CHLORIDE 20 MEQ/15 ML UDCUP PER TUBE ONE (15:29)
[2018-03-26] MEDS ORDERED: PHENYLEPHRINE DRIP 40 MG/250 ML PREMIX IV PRN (19:30)
[2018-03-26] MEDS ORDERED: PHENYLEPHRINE DRIP 40 MG/250 ML PREMIX IV ONE (19:49)
[2018-03-26] MEDS ORDERED: DOPamine 800 MG/250 ML PREMIX IV ONE (20:05)
[2018-03-26] MEDS ORDERED: NOREPINEPHRINE 16 MG in SODIUM CHLORIDE 0.9% 234 ML IV PRN (20:06)
[2018-03-26] MEDS ORDERED: NOREPINEPHRINE 4 MG/4 ML VIAL IV ONE (20:25)
[2018-03-26] MEDS: PHENYLEPHRINE INJ 160 MG in SODIUM CHLORIDE 0.9% 234 ML IV PRN (20:29)
[2018-03-26] MEDS: MULTIVITAMIN (BEROCCA) TABLET PO SCH (21:15)
[2018-03-26] MEDS: VITAMIN E 1000 UNIT CAPSULE PO SCH (21:22)
[2018-03-27] MEDS: ALBUTEROL/IPRATROPIUM 3 ML NEB RESP TX SCH ×4 (00:08→19:57)
[2018-03-27] MEDS: PHENYTOIN 100 MG/2 ML VIAL IV SCH ×3 (00:35→16:10)
[2018-03-27] MEDS: INSULIN REGULAR 100 UNIT/ML SUBCUT SCH ×5 (00:35→23:59)
[2018-03-27] MEDS: ENOXAPARIN 40 MG/0.4 ML SYRINGE SUBCUT SCH ×3 (00:36→23:59)
[2018-03-27 03:36] LABS: ABG Base Excess -7.1 MMOL/L (-2.5-2.5); ABG HCO3 16.8 MMOL/L (20-26); ABG Oxygen Saturation 97.6 % (95-100); ABG PCO2 29.3 MM HG (35-48); ABG PH 7.376 (7.35-7.45); ABG PO2 110.8 MM HG (80-95); ABG TCO2 17.7 MMOL/L (23-27)
[2018-03-27] MEDS: SODIUM CHLORIDE 0.9% 1,000 ML IV SCH ×3 (03:44→16:11)
[2018-03-27] MEDS: PHENYLEPHRINE INJ 160 MG in SODIUM CHLORIDE 0.9% 234 ML IV PRN ×3 (03:46→20:14)
[2018-03-27 04:11] LABS: Basophils # 0.1 10*3/uL (0.0-0.2); Basophils % 0.5 % (0.0-0.8); Eosinophils % 0.1 % (0.00-10.9); Hematocrit 35.3 VOL% (35.7-47.0); Hemoglobin 11.8 GM/DL (12.0-16.0); Immature Granulocytes % 8.2 %; Immature Granulocytes Absolute 1.48 #; Lymphocytes # 0.4 10*3/uL (1.4-4.0); Lymphocytes % 2.1 % (21.3-54.2); Mean Corpuscular HGB Conc 33.4 GM/DL (32-36); Mean Corpuscular Hemoglobin 32 PG (27-34); Mean Corpuscular Volume 95.7 FL (87-102); Mean Platelet Volume 11.8 FL (9.6-12.0); Monocytes # 1.2 10*3/uL (0.11-0.8); Monocytes % 6.6 % (1.7-12.7); NRBC # 6.15 10*3/uL; Neutrophils # 14.9 10*3/uL (1.4-7.4); Neutrophils % 82.5 % (38.7-73.9); Platelet Count 129 T/CUMM (130-400); Red Blood Count 3.69 MC/CUMM (3.8-5.5); Red Cell Distribution Width 15.9 % (9.3-17.3)
[2018-03-27 04:41] LABS: Calcium 8.1 MG/DL (8.5-10.1); Osmolality,Calculated 298.4 MOS/KG (273-304); Potassium 4.3 MMOL/L (3.5-5.1)
[2018-03-27 05:00] LABS: Band Neutrophils 3 % (0-10); Lymphocytes 20 % (20-55); Macrocytosis 1+; Nucleated Red Blood Cells 34 (0-5); Platelet Estimate Normal; Segmented Neutrophils 73 % (50-85); Total Cells Counted 100
[2018-03-27] MEDS: LEVOTHYROXINE 100 MCG TABLET PO SCH (05:46)
[2018-03-27] MEDS: predniSONE 10 MG TABLET PO SCH (09:00)
[2018-03-27] MEDS: ZAFIRLUKAST 20 MG TABLET PO SCH ×2 (09:00→20:13)
[2018-03-27] MEDS: guaiFENesin/DM ER 600-30 MG TABLET PO SCH ×2 (09:00→20:13)
[2018-03-27] MEDS: THEOPHYLLINE ER 300 MG TABLET PO SCH (09:00)
[2018-03-27] MEDS: PANTOPRAZOLE 40 MG VIAL IV SCH (09:00)
[2018-03-27] MEDS: ALBUMIN 25% 25 GM in PREMIX 1 EACH IV SCH ×2 (12:05→20:14)
[2018-03-27] MEDS: AMIODARONE 200 MG TABLET PO SCH ×2 (12:06→20:13)
[2018-03-27 12:48] LABS: INR 1.2; PT Patient Result 12.7 SECS
[2018-03-27 12:59] LABS: Albumin 2.2 G/DL (3.4-5.0); Bilirubin,Direct 0.94 MG/DL (0.0-0.20); Bilirubin,Indirect 0.7 MG/DL (0.0-1.0); Bilirubin,Total 1.6 MG/DL (0.2-1.0); Total Protein 5.5 G/DL (6.4-8.3)
[2018-03-27] MEDS: PROPOFOL 1,000 MG/100 ML BOTTLE IV SCH (13:57)
[2018-03-27] MEDS: MULTIVITAMIN (BEROCCA) TABLET PO SCH (20:13)
[2018-03-27] MEDS: VITAMIN E 1000 UNIT CAPSULE PO SCH (20:14)
[2018-03-28] MEDS: ALBUTEROL/IPRATROPIUM 3 ML NEB RESP TX SCH ×4 (02:24→19:34)
[2018-03-28 03:42] LABS: ABG Base Excess -7.1 MMOL/L (-2.5-2.5); ABG HCO3 18.7 MMOL/L (20-26); ABG Oxygen Saturation 98.4 % (95-100); ABG PCO2 35.2 MM HG (35-48); ABG PH 7.323 (7.35-7.45); ABG TCO2 16.5 MMOL/L (23-27); Allen Test Positive; Pt O2 Delivery Device Ventilator
[2018-03-28 04:26] LABS: Basophils # 0.1 10*3/uL (0.0-0.2); Basophils % 0.4 % (0.0-0.8); Eosinophils # 0.1 10*3/uL (0.0-0.87); Eosinophils % 0.3 % (0.00-10.9); Hematocrit 33.4 VOL% (35.7-47.0); Hemoglobin 10.8 GM/DL (12.0-16.0); Immature Granulocytes % 7.5 %; Immature Granulocytes Absolute 1.34 #; Lymphocytes % 5.6 % (21.3-54.2); Mean Corpuscular HGB Conc 32.3 GM/DL (32-36); Mean Corpuscular Hemoglobin 32 PG (27-34); Mean Corpuscular Volume 99.4 FL (87-102); Mean Platelet Volume 12.3 FL (9.6-12.0); Monocytes # 1.7 10*3/uL (0.11-0.8); Monocytes % 9.7 % (1.7-12.7); NRBC # 4.59 10*3/uL; Neutrophils # 13.6 10*3/uL (1.4-7.4); Neutrophils % 76.5 % (38.7-73.9); Platelet Count 122 T/CUMM (130-400); Red Blood Count 3.36 MC/CUMM (3.8-5.5); Red Cell Distribution Width 16.6 % (9.3-17.3); White Blood Count 17.8 T/CUMM (4-12)
[2018-03-28 04:39] LABS: Albumin 2.9 G/DL (3.4-5.0); Bilirubin,Total 2.1 MG/DL (0.2-1.0); Calcium 8.7 MG/DL (8.5-10.1); Osmolality,Calculated 306.1 MOS/KG (273-304); Potassium 4.1 MMOL/L (3.5-5.1); Total Protein 5.7 G/DL (6.4-8.3)
[2018-03-28] MEDS: PHENYLEPHRINE INJ 160 MG in SODIUM CHLORIDE 0.9% 234 ML IV PRN ×2 (04:50→16:21)
[2018-03-28 05:08] LABS: Anisocytosis 1+; Band Neutrophils 3 % (0-10); Lymphocytes 13 % (20-55); Macrocytosis 3+; Nucleated Red Blood Cells 30 (0-5); Platelet Estimate Decreased; Segmented Neutrophils 80 % (50-85); Total Cells Counted 100
[2018-03-28 05:22] LABS: INR 1.3; PT Patient Result 13.2 SECS
[2018-03-28] MEDS: LEVOTHYROXINE 100 MCG TABLET PO SCH (05:47)
[2018-03-28] MEDS: INSULIN REGULAR 100 UNIT/ML SUBCUT SCH ×4 (05:47→23:48)
[2018-03-28] MEDS: SODIUM CHLORIDE 0.9% 1,000 ML IV SCH ×2 (08:06)
[2018-03-28] MEDS: PHENYTOIN 100 MG/2 ML VIAL IV SCH ×4 (09:06→23:48)
[2018-03-28] MEDS: ALBUMIN 25% 25 GM in PREMIX 1 EACH IV SCH ×2 (09:06→20:55)
[2018-03-28] MEDS: predniSONE 10 MG TABLET PO SCH (09:06)
[2018-03-28] MEDS: ZAFIRLUKAST 20 MG TABLET PO SCH ×2 (09:06→20:54)
[2018-03-28] MEDS: AMIODARONE 200 MG TABLET PO SCH ×2 (09:07→20:54)
[2018-03-28] MEDS: PANTOPRAZOLE 40 MG VIAL IV SCH (09:07)
[2018-03-28] MEDS: THEOPHYLLINE ER 300 MG TABLET PO SCH (09:07)
[2018-03-28] MEDS: guaiFENesin/DM ER 600-30 MG TABLET PO SCH ×2 (09:07→20:54)
[2018-03-28] MEDS: PROPOFOL 1,000 MG/100 ML BOTTLE IV SCH ×2 (09:08→20:56)
[2018-03-28] MEDS: ENOXAPARIN 40 MG/0.4 ML SYRINGE SUBCUT SCH ×2 (12:09→23:54)
[2018-03-28] MEDS: FUROSEMIDE 40 MG/4 ML VIAL IV SCH (15:15)
[2018-03-28] MEDS: MULTIVITAMIN (BEROCCA) TABLET PO SCH (20:54)
[2018-03-28] MEDS: VITAMIN E 1000 UNIT CAPSULE PO SCH (20:55)
[2018-03-29] MEDS: ALBUTEROL/IPRATROPIUM 3 ML NEB RESP TX SCH ×4 (00:51→19:38)
[2018-03-29] MEDS: PHENYLEPHRINE INJ 160 MG in SODIUM CHLORIDE 0.9% 234 ML IV PRN ×2 (03:14→19:27)
[2018-03-29 04:16] LABS: ABG Base Excess -10.1 MMOL/L (-2.5-2.5); ABG HCO3 16.4 MMOL/L (20-26); ABG Oxygen Saturation 95.8 % (95-100); ABG PH 7.308 (7.35-7.45); ABG PO2 90.1 MM HG (80-95); ABG TCO2 13.4 MMOL/L (23-27); Allen Test Positive; Pt O2 Delivery Device Ventilator
[2018-03-29 05:24] LABS: Basophils # 0.1 10*3/uL (0.0-0.2); Basophils % 0.4 % (0.0-0.8); Eosinophils % 0.2 % (0.00-10.9); Hematocrit 33.5 VOL% (35.7-47.0); Hemoglobin 10.9 GM/DL (12.0-16.0); Immature Granulocytes % 6.2 %; Immature Granulocytes Absolute 1.32 #; Lymphocytes # 0.7 10*3/uL (1.4-4.0); Lymphocytes % 3.4 % (21.3-54.2); Mean Corpuscular HGB Conc 32.5 GM/DL (32-36); Mean Corpuscular Hemoglobin 32 PG (27-34); Mean Corpuscular Volume 98.8 FL (87-102); Mean Platelet Volume 12.6 FL (9.6-12.0); Monocytes # 1.6 10*3/uL (0.11-0.8); Monocytes % 7.3 % (1.7-12.7); NRBC # 2.32 10*3/uL; Neutrophils # 17.7 10*3/uL (1.4-7.4); Neutrophils % 82.5 % (38.7-73.9); Platelet Count 108 T/CUMM (130-400); Red Blood Count 3.39 MC/CUMM (3.8-5.5); Red Cell Distribution Width 17.2 % (9.3-17.3); White Blood Count 21.4 T/CUMM (4-12)
[2018-03-29 05:31] LABS: INR 1.3; PT Patient Result 13.5 SECS
[2018-03-29 05:41] LABS: Albumin 3.5 G/DL (3.4-5.0); Bilirubin,Total 3.6 MG/DL (0.2-1.0); Calcium 8.7 MG/DL (8.5-10.1); Osmolality,Calculated 306.1 MOS/KG (273-304); Potassium 4.6 MMOL/L (3.5-5.1); Total Protein 6.3 G/DL (6.4-8.3)
[2018-03-29 05:47] LABS: Band Neutrophils 2 % (0-10); Hypochromasia 1+; Lymphocytes 6 % (20-55); Macrocytosis Slight; Nucleated Red Blood Cells 13 (0-5); Platelet Estimate Decreased; Polychromasia Slight; Segmented Neutrophils 89 % (50-85); Total Cells Counted 100
[2018-03-29] MEDS: PROPOFOL 1,000 MG/100 ML BOTTLE IV SCH (06:02)
[2018-03-29] MEDS: INSULIN REGULAR 100 UNIT/ML SUBCUT SCH ×3 (06:03→17:58)
[2018-03-29] MEDS: LEVOTHYROXINE 100 MCG TABLET PO SCH (06:03)
[2018-03-29] MEDS ORDERED: FUROSEMIDE 20 MG/2 ML VIAL ONE (08:44)
[2018-03-29] MEDS: PANTOPRAZOLE 40 MG VIAL IV SCH (09:11)
[2018-03-29] MEDS: FUROSEMIDE 40 MG/4 ML VIAL IV SCH (09:12)
[2018-03-29] MEDS: PHENYTOIN 100 MG/2 ML VIAL IV SCH ×2 (09:13→16:38)
[2018-03-29] MEDS: THEOPHYLLINE ER 300 MG TABLET PO SCH (09:13)
[2018-03-29] MEDS: guaiFENesin/DM ER 600-30 MG TABLET PO SCH ×2 (09:13→21:39)
[2018-03-29] MEDS: predniSONE 10 MG TABLET PO SCH (09:13)
[2018-03-29] MEDS: AMIODARONE 200 MG TABLET PO SCH ×2 (09:13→21:39)
[2018-03-29] MEDS: ZAFIRLUKAST 20 MG TABLET PO SCH ×2 (09:13→21:39)
[2018-03-29] MEDS: ENOXAPARIN 40 MG/0.4 ML SYRINGE SUBCUT SCH (12:03)
[2018-03-29] MEDS: MULTIVITAMIN (BEROCCA) TABLET PO SCH (21:39)
[2018-03-29] MEDS: VITAMIN E 1000 UNIT CAPSULE PO SCH (21:40)
[2018-03-30] MEDS: ALBUTEROL/IPRATROPIUM 3 ML NEB RESP TX SCH ×2 (00:27→06:53)
[2018-03-30] MEDS: INSULIN REGULAR 100 UNIT/ML SUBCUT SCH ×2 (00:27→05:58)
[2018-03-30] MEDS: ENOXAPARIN 40 MG/0.4 ML SYRINGE SUBCUT SCH (00:27)
[2018-03-30] MEDS: PHENYTOIN 100 MG/2 ML VIAL IV SCH ×2 (00:28→09:44)
[2018-03-30 04:01] LABS: ABG Base Excess -12.5 MMOL/L (-2.5-2.5); ABG HCO3 13.4 MMOL/L (20-26); ABG Oxygen Saturation 99.1 % (95-100); ABG PH 7.253 (7.35-7.45); ABG PO2 196.9 MM HG (80-95); ABG TCO2 14.3 MMOL/L (23-27); Allen Test Positive; Pt O2 Delivery Device Ventilator
[2018-03-30 05:22] LABS: Basophils # 0.1 10*3/uL (0.0-0.2); Basophils % 0.3 % (0.0-0.8); Eosinophils % 0.1 % (0.00-10.9); Hematocrit 34.9 VOL% (35.7-47.0); Hemoglobin 11.5 GM/DL (12.0-16.0); Immature Granulocytes Absolute 1.39 #; Lymphocytes # 0.8 10*3/uL (1.4-4.0); Lymphocytes % 2.8 % (21.3-54.2); Mean Corpuscular Hemoglobin 33 PG (27-34); Mean Corpuscular Volume 98.6 FL (87-102); Mean Platelet Volume 12.8 FL (9.6-12.0); Monocytes # 1.4 10*3/uL (0.11-0.8); NRBC # 4.68 10*3/uL; Neutrophils # 24.1 10*3/uL (1.4-7.4); Neutrophils % 86.8 % (38.7-73.9); Platelet Count 132 T/CUMM (130-400); Red Blood Count 3.54 MC/CUMM (3.8-5.5); Red Cell Distribution Width 18.3 % (9.3-17.3); White Blood Count 27.8 T/CUMM (4-12)
[2018-03-30 05:26] LABS: INR 1.4; PT Patient Result 14.9 SECS
[2018-03-30 05:40] LABS: Albumin 3.1 G/DL (3.4-5.0); Bilirubin,Total 4.7 MG/DL (0.2-1.0); Calcium 9.5 MG/DL (8.5-10.1); Osmolality,Calculated 303.5 MOS/KG (273-304); Total Protein 6.5 G/DL (6.4-8.3)
[2018-03-30 05:41] LABS: Prealbumin 9.3 MG/DL (20-40)
[2018-03-30 05:54] LABS: Anisocytosis 1+; Band Neutrophils 32 % (0-10); Lymphocytes 2 % (20-55); Macrocytosis Slight; Nucleated Red Blood Cells 14 (0-5); Platelet Estimate Adequate; Poikilocytosis 1+; Polychromasia Slight; Segmented Neutrophils 59 % (50-85); Total Cells Counted 100
[2018-03-30] MEDS: LEVOTHYROXINE 100 MCG TABLET PO SCH (06:13)
[2018-03-30] MEDS: predniSONE 10 MG TABLET PO SCH (09:40)
[2018-03-30] MEDS: ZAFIRLUKAST 20 MG TABLET PO SCH (09:41)
[2018-03-30] MEDS: guaiFENesin/DM ER 600-30 MG TABLET PO SCH (09:41)
[2018-03-30] MEDS: THEOPHYLLINE ER 300 MG TABLET PO SCH (09:42)
[2018-03-30] MEDS: AMIODARONE 200 MG TABLET PO SCH (09:42)
[2018-03-30] MEDS: PANTOPRAZOLE 40 MG VIAL IV SCH (09:53)
[2018-03-30] MEDS: FUROSEMIDE 40 MG/4 ML VIAL IV SCH (09:57)
[2018-03-30 15:42] VITALS: BP 92/55
== END 2018-03-30 11:28 | disposition expired | DRG 207 ==
LOC: EDBD → EDUNIT# → N.ED 21:39 → N.EDINP 23:57 → SUATTDRO 23:57 → N.3E 03-11 00:48 → N.CC 03-23 08:47
PROVIDERS: ATTEND Family Medicine